=== PATIENT | female | born 1935 | race Caucasian/White ===

== ENCOUNTER 2016-12-04 07:59 | Observation (INO) | payer MEDICARE ==
--- NOTE | 2016-12-03 16:09 | HP ---
ADMIT DATE: HISTORY OF PRESENT ILLNESS: The patient is a pleasant 81-year-old woman who I have cared for in the past. A few years ago she underwent lumbar surgery by me for a lumbar radiculopathy and did very well from that. She reports that over the last month, she has developed increasing lower back pain along with pain that radiates into her left inguinal region and left anterior thigh, knee and anterior leg. She does not notice numbness in her legs. She feels as though her strength is normal. She says that when she is lying down in certain positions, she has virtually no pain, but if she stands and tries to walk, she develops very significant pain. There is no problem on the right side. The pain became unbearable and she was recently admitted to the hospital for evaluation and treatment. She was discharged and is now being brought back in for surgery. PAST MEDICAL HISTORY: Hypertension, hyperlipidemia, degenerative arthritis, hypothyroidism. PAST SURGICAL HISTORY: Cholecystectomy, total hip replacement, hysterectomy and lumbar surgery as mentioned above. SOCIAL HISTORY: , does not smoke or drink alcohol. CURRENT MEDICATIONS: Listed on the MRAD. ALLERGIES: ALBUMIN, MORPHINE. REVIEW OF SYSTEMS: A 12-point review of systems was performed and is noncontributory except that mentioned above. PHYSICAL EXAMINATION: GENERAL: Alert, pleasant, cooperative. HEENT: Atraumatic, normocephalic. NEUROLOGIC: Strength is 5/5 in the upper and lower extremities bilaterally. On sensory exam, she was intact to light touch in the upper and lower extremities bilaterally. Reflexes were 1+ throughout except for an absent left knee jerk. Straight leg raising was negative on the right. Straight leg raising on the left was associated with left inguinal and buttock pain at 30 degrees. On examination of the lumbar spine there was mild tenderness with palpation throughout the lumbar spine. Paraspinal muscle bulk and strength are normal. The overall alignment was normal to visual inspection. There was full range of motion of the upper and lower extremities bilaterally. IMAGING DATA: Reviewed a lumbar MRI scan as well as a lumbar myelogram. There is a disk herniation at L3-L4 on the left with nerve compression. ASSESSMENT: I believe her symptoms are related to the disk bulging on the left at L3-L4. I discussed lumbar microsurgery with her including the risk, the technique and the expected postoperative course. She would like to proceed. We have made the arrangements. NATHALY AMIN MD DR: Valerie JOB#: [id number] / [id number]
[2016-12-04] VITALS (9 sets, daily range): BP systolic 105–148; BP diastolic 55–75
[~2016-12-04] VITALS: Ht 165.1 cm; Wt 72.6 kg
[~2016-12-04 07:59] MED LIST: ASPI-482 PO; ATOR20TA PO; BACITRACIN 50,000 UNIT in IV NORMAL SALINE 1000ML BAG 1,000 ML IRR ONE; BUPIVACAINE-EPI 0.25%-1:200000 MPF 30 ML VIAL. ONE; CEFAZOLIN 2GM PREMIX 50 ML IV PRN; CYCL5TAB PO; DOCU-27 PO; ESTR1.5T2 PO; EZET10TA3 PO; GELATIN SPONGE SIZE 100. ONE; HYDR-2666 PO; HYDR-2762 PO; KETOROLAC 60 MG/2 ML SYRINGE FOR OR. ONE; LEVO75TA5 PO; OMEP40CA5 PO; SENN-22 PO; THROMBIN 20,000 UNIT SPRAY.SYRN KIT TP ONE; TRAM50TA PO; TRIA1TAB3 PO; [UNRECOGNIZED DRUG - CODE] PO
[2016-12-04] MEDS ORDERED: ATOR20TA PO (08:06)
[2016-12-04] MEDS ORDERED: FENTANYL PF 100 MCG/2 ML VIAL. ONE (08:30)
[2016-12-04] MEDS ORDERED: PROPOFOL 50 ML IV ONE (08:30)
[2016-12-04] MEDS ORDERED: PHENYLEPHRINE 10 MG/ML VIAL. ONE (08:30)
[2016-12-04] MEDS ORDERED: PROPOFOL 20 ML IV ONE (08:30)
[2016-12-04] MEDS ORDERED: DEXAMETHASONE SOD PHOS 20 MG/5 ML VIAL. ONE (08:30)
[2016-12-04] MEDS ORDERED: LIDOCAINE 2% 100 MG/5 ML DISP.SYRIN. ONE (08:30)
[2016-12-04] MEDS ORDERED: ROCURONIUM 50 MG/5 ML VIAL. ONE (08:30)
[2016-12-04] MEDS ORDERED: REMIFENTANIL 2 MG VIAL. IV ONE (08:30)
[2016-12-04] MEDS ORDERED: MINERAL OIL/PETROLATUM,WHITE OPHTH OINT 3.5GM TUBE. ONE (08:30)
[2016-12-04] MEDS: IV RINGERS,LACTATED 1000ML 1,000 ML IV SCH ×2 (08:55→22:20)
[2016-12-04] MEDS ORDERED: FENTANYL PF 100 MCG/2 ML VIAL. IV ONE ×2 (09:15→10:00)
[2016-12-04] MEDS ORDERED: EPHEDRINE PF IN SALINE 50 MG/5 ML DISP.SYRIN. IV ONE (10:55)
[2016-12-04] MEDS ORDERED: ONDANSETRON PF 4 MG/2 ML VIAL. ONE (12:55)
[2016-12-04] MEDS ORDERED: DESFLURANE > 120 MINUTES IH ONE (12:56)
[2016-12-04] MEDS ORDERED: GLYCOPYRROLATE 1 MG/5 ML VIAL. ONE (12:56)
[2016-12-04] MEDS ORDERED: NEOSTIGMINE METHYLSULFATE 5 MG/5 ML SYRINGE. ONE (12:56)
[2016-12-04] MEDS: FENTANYL PF 100 MCG/2 ML VIAL. IV PRN ×2 (14:04→14:09)
[2016-12-04] MEDS ORDERED: PROCHLORPERAZINE 10 MG/2 ML VIAL. IV PRN (14:15)
[2016-12-04] MEDS ORDERED: DIPHENHYDRAMINE 50 MG/ML VIAL IV PRN ×2 (14:15→14:30)
[2016-12-04] MEDS ORDERED: MEPERIDINE PF 25 MG/ML VIAL. IV PRN (14:15)
[2016-12-04] MEDS ORDERED: ONDANSETRON PF 4 MG/2 ML VIAL. IV PRN (14:30)
[2016-12-04] MEDS ORDERED: TRAMADOL 50 MG TABLET. PO PRN (14:30)
[2016-12-04] MEDS ORDERED: 0.9 % SODIUM CHLORIDE 10 ML DISP.SYRIN. IV PRN (14:30)
[2016-12-04] MEDS ORDERED: DIPHENHYDRAMINE HCL 25 MG CAPSULE PO PRN (14:30)
[2016-12-04] MEDS ORDERED: MAGNESIUM HYDROXIDE 2,400 MG/30 ML ORAL.SUSP. PO PRN (14:30)
[2016-12-04] MEDS ORDERED: OXYCODONE/APAP 5/325 TABLET. PO PRN (14:30)
[2016-12-04] MEDS ORDERED: ACETAMINOPHEN 325 MG TABLET. PO PRN (14:30)
[2016-12-04] MEDS ORDERED: FENTANYL PF 100 MCG/2 ML VIAL. IV PRN ×2 (14:30)
[2016-12-04] MEDS ORDERED: CALCIUM CARBONATE 500 MG TAB.CHEW PO PRN (14:30)
[2016-12-04] MEDS ORDERED: MAG HYDROX/AL HYDROX/SIMETH 30 ML ORAL.SUSP PO PRN (14:30)
[2016-12-04] MEDS: HYDROMORPHONE 2 MG/ML VIAL. IV PRN ×5 (14:37→16:06)
[2016-12-04] MEDS: DOCUSATE SODIUM 100 MG CAPSULE PO SCH ×2 (18:25→22:44)
[2016-12-04] MEDS: OXYCODONE/APAP 5/325 TABLET. PO PRN ×2 (18:25→22:44)
[2016-12-04] MEDS: POTASSIUM CL 20MEQ D5-0.45NACL 1,000 ML IV SCH (18:28)
[2016-12-04] MEDS ORDERED: ATORVASTATIN CALCIUM 20 MG TABLET PO SCH (21:00)
[2016-12-04] MEDS: SENNOSIDES/DOCUSATE 8.6/50MG TABLET. PO SCH (22:44)
[2016-12-05] MEDS: CYCLOBENZAPRINE 10 MG TABLET. PO PRN ×2 (01:25→09:32)
[2016-12-05 03:16] VITALS: BP 123/63
[2016-12-05] MEDS: POTASSIUM CL 20MEQ D5-0.45NACL 1,000 ML IV SCH (04:20)
[2016-12-05 07:00] VITALS: BP 112/54
[2016-12-05] MEDS ORDERED: LEVOTHYROXINE 75 MCG TABLET PO SCH (07:00)
[2016-12-05] MEDS ORDERED: PANTOPRAZOLE 40 MG TABLET. PO SCH (07:30)
[2016-12-05] MEDS ORDERED: ASPIRIN ENTERIC COATED 81 MG TABLET.DR. PO SCH (08:00)
[2016-12-05] MEDS ORDERED: PHENOBARB PO SCH (09:00)
[2016-12-05] MEDS ORDERED: ATROPINE PO SCH (09:00)
[2016-12-05] MEDS ORDERED: SCOP PO SCH (09:00)
[2016-12-05] MEDS ORDERED: HYOSCY PO SCH (09:00)
[2016-12-05] MEDS ORDERED: TRIAMTERENE/HCTZ 37.5/25MG TABLET. PO SCH (09:00)
[2016-12-05] MEDS: DOCUSATE SODIUM 100 MG CAPSULE PO SCH (09:30)
[2016-12-05] MEDS: SENNOSIDES/DOCUSATE 8.6/50MG TABLET. PO SCH (09:30)
[2016-12-05 11:00] VITALS: BP 118/54
[2016-12-05] MEDS: IV RINGERS,LACTATED 1000ML 1,000 ML IV SCH (11:12)
[2016-12-05] MEDS: OXYCODONE/APAP 5/325 TABLET. PO PRN (13:39)
--- NOTE | 2016-12-05 13:43 | PATHOLOGY ---
PATHOLOGY REPORT * * * * * * * * FINAL DIAGNOSIS: Segments of fibrocartilaginous, fibroadipose, and skeletal muscle tissue and minute segments of bone, lumbar disc and decompression: - Degenerative changes of fibrocartilaginous tissue. COMMENT: There is no evidence of an acute inflammatory process or malignancy. (MEGM:; d/t: 12/05/16) REPORT ELECTRONICALLY SIGNED BY: Jignesh Valdes M.D. DATE/TIME: 12/05/2016 13:43 * * * * * * * * GROSS PATHOLOGY: Received in formalin labeled "Janey Jaeger, lumbar disc and decompression" are multiple segments of wilcox, rubbery, and gritty tissue admixed with bone. The specimen measures 4.8 x 4.6 x 0.6 cm in aggregate dimensions. The tissue is submitted representatively in cassette A1, following decalcification. INITIAL CPT CODE(S): A; 05440, 03889 Professional services performed by [facility] [place] [place] [address] Technical services performed by [facility] at [address] [place] [address], [place] [address]. SPECIMEN(S) RECEIVED: A.Lumbar disc and decompression CLINICAL HISTORY: Lumbar herniated disc PATIENT: JANEY JAEGER /AGE: 2 1935 (Age: 81) PATIENT #: [id number] ALT CASE #: SPECIMEN COLLECTION DATE: 12/04/2016 SPECIMEN RECEIVED DATE: 12/04/2016 [facility] - [address] [place] [address] - PHONE: [phone] * * * END OF REPORT * * *
--- NOTE | 2016-12-05 14:00 | DISCH ---
DISCHARGE INSTRUCTIONS Condition on Discharge Condition on Discharge: Stable Activity After Discharge Activity Instructions for Disc: Activity as tolerated, Avoid exertion Bathing Instructions: Shower-keep dressing dry Lifting Instructions after Dis: No heavy lifting, No pulling or pushing, Do not lift >10 pounds Driving Instructions after Dis: Do not drive Diet after Discharge Additional Diet Restrictions: resume home diet Wound Incision Care Wound/Incision Care: Ice to area for comfort Other wound/incision instructi: daily dressing changes Contacting the DRPelon after DC Call your doctor for: Concerns you may have Follow-Up Follow up with: Dr. Amin in 2 weeks [phone] NATHALY AMIN MD Dec 05, 2016 14:00
[2016-12-05] MEDS ORDERED: OXYC1TAB7 PO (14:04)
--- NOTE | 2016-12-05 14:15 | PDOC ---
PROGRESS NOTES Subjective Subjective left leg pain improved left knee pain back/ incision sore Objective Objective Vital Signs Date Time Temp Pulse Resp B/P Pulse Ox O2 Delivery O2 Flow Rate FiO2 12/05/16 11:00 97.7 77 18 118/54 99 Room Air 97.7 12/04/16 13:40 8 Intake and Output 12/05/16 07:00 Intake Total 2790 ml Output Total 230 ml Balance 2560 ml Intake Oral 940 ml IV Total 1850 ml Output Urine Total 180 ml Estimated Blood Loss 50 ml # Voids 5 Physical Exam General: Alert, Oriented X3, Cooperative MUSCULOSKELETAL: Other (SIERRA) Neuro: Normal speech Skin: Other (dressing C,D,I, flat) Assessment Assessment Problems Medical Problems: (1) Herniation of lumbar intervertebral disc with radiculopathy Status: Acute Plan Plan of Care may transfer to SNF f/u in our office in 2 weeks Comment Review of Relevant I have reviewed the following items dawson (where applicable) has been applied. Labs Laboratory Tests Test 12/04/16 08:20 Nasal Screen MRSA (PCR) Negative (Negative) Medications Current Medications Bacitracin 29816 unit/Sodium Chloride 1,000 ml @ 1,000 mls/hr 1X PERIOP ONCE IRR Last administered on 12/04/16 06:00; Start 12/04/16 at 06:00; Stop 12/04/16 at 06:59; Status DC Cefazolin Sodium/ Dextrose (Ancef 2gm Premix) 50 ml @ 100 mls/hr 1X PREOP PRN IV PRIOR TO PROCEDURE Last administered on 12/04/16 11:09; Start 12/04/16 at 06: 00; Stop 12/04/16 at 18:00; Status DC Thrombin 20,000 unit STK-MED ONCE TP Last administered on 12/04/16 11:20; Start 12/04/16 at 07:26; Stop 12/04/16 at 07:27; Status DC Gelatin (Gelfoam Size 100) 1 each STK-MED ONCE .ROUTE Last administered on 12/04 11:20; Start 12/04/16 at 07:26; Stop 12/04/16 at 07:27; Status DC Ketorolac Tromethamine (Toradol For Or Only) 60 mg STK-MED ONCE .ROUTE Last administered on 12/04/16 11:20; Start 12/04/16 at 07:27; Stop 12/04/16 at 07:28; Status DC Bupivacaine HCl/ Epinephrine Bitart (Sensorcaine-Epi 0.25%-1:064031 Mpf) 30 ml STK-MED ONCE .ROUTE Last administered on 12/04/16 11:20; Start 12/04/16 at 07:27 ; Stop 12/04/16 at 07:28; Status DC Dexamethasone Sodium Phosphate (Decadron) 20 mg STK-MED ONCE .ROUTE ; Start 12/04 at 08:30; Stop 12/04/16 at 08:31; Status DC Rocuronium [place] 50 mg 50 mg STK-MED ONCE .ROUTE ; Start 12/04/16 at 08:30; Stop 12/04/16 at 08:31; Status DC Propofol 50 ml @ As Directed STK-MED ONCE IV ; Start 12/04/16 at 08:30; Stop 12/04 at 08:31; Status DC Propofol (Diprivan) 20 ml @ As Directed STK-MED ONCE IV ; Start 12/04/16 at 08:30 ; Stop 12/04/16 at 08:31; Status DC Lidocaine HCl 100 mg STK-MED ONCE .ROUTE ; Start 12/04/16 at 08:30; Stop 12/04/16 at 08:31; Status DC Multi-Ingred Cream/Lotion/Oil/ Oint (Artificial Tears Eye Oint) 7 luis STK-MED ONCE .ROUTE ; Start 12/04/16 at 08:30; Stop 12/04/16 at 08:31; Status DC Phenylephrine HCl (Arvin-Synephrine Inj) 10 mg STK-MED ONCE .ROUTE ; Start at 08:30; Stop 12/04/16 at 08:31; Status DC Remifentanil HCl (Ultiva) 2 mg STK-MED ONCE IV ; Start 12/04/16 at 08:30; Stop at 08:31; Status DC Fentanyl Citrate 100 mcg 100 mcg STK-MED ONCE .ROUTE ; Start 12/04/16 at 08:30; Stop 12/04/16 at 08:31; Status DC Lactated Ringer's (Iv Lactated Ringers) 1,000 ml @ 75 mls/hr [id number] IV Last administered on 12/04/16 08:55; Start 12/04/16 at 09:00 Fentanyl Citrate (Fentanyl 2ml Vial) 50 mcg 1X ONCE IV Last administered on 09:22; Start 12/04/16 at 09:15; Stop 12/04/16 at 09:17; Status DC Fentanyl Citrate (Fentanyl 2ml Vial) 50 mcg 1X ONCE IV Last administered on 09:57; Start 12/04/16 at 10:00; Stop 12/04/16 at 10:01; Status DC Ephedrine Sulfate 50 mg STK-MED ONCE IV ; Start 12/04/16 at 10:55; Stop 12/04/16 at 10:56; Status DC Ondansetron HCl (Zofran) 4 mg STK-MED ONCE .ROUTE ; Start 12/04/16 at 12:55; Stop 12/04/16 at 12:56; Status DC Glycopyrrolate (Robinul) 1 mg STK-MED ONCE .ROUTE ; Start 12/04/16 at 12:56; Stop 12/04/16 at 12:57; Status DC Neostigmine Methylsulfate 5 mg STK-MED ONCE .ROUTE ; Start 12/04/16 at 12:56; Stop 12/04/16 at 12:57; Status DC Desflurane (Suprane) 90 ml STK-MED ONCE IH ; Start 12/04/16 at 12:56; Stop at 12:57; Status DC Fentanyl Citrate (Fentanyl 2ml Vial) 50 mcg PRN Q5MIN PRN IV Acute Pain Last administered on 12/04/16 14:09; Start 12/04/16 at 14:15; Stop 12/05/16 at 14:14 Hydromorphone HCl (Dilaudid) 0.4 mg PRN Q10MIN PRN IV Moderate to severe pain Last administered on 12/04/16 16:06; Start 12/04/16 at 14:15; Stop 12/05/16 at 14: 14 Meperidine HCl (Demerol) 12.5 mg PRN Q5MIN PRN IV SHIVERING; Start 12/04/16 at 14:15; Stop 12/05/16 at 14:14 Prochlorperazine Edisylate (Compazine) 5 mg PRN Q6HRS PRN IV Nausea/Vomiting, 1st Choice; Start 12/04/16 at 14:15; Stop 12/05/16 at 14:14 Diphenhydramine HCl (Benadryl) 12.5 mg PRN Q2HR PRN IV ITCHING; Start 12/04/16 at 14:15; Stop 12/05/16 at 14:14 Aspirin (Ecotrin) 81 mg [id number] PO Last administered on 12/05/16 09:30; Start 12/05/16 at 08:00 Atorvastatin Calcium (Lipitor) 20 mg QHS PO Last administered on 12/04/16 22:44 ; Start 12/04/16 at 21:00 Docusate Sodium (Colace) 100 mg BID PO Last administered on 12/05/16 09:30; Start 12/04/16 at 15:00 Levothyroxine Sodium (Synthroid) 75 mcg DAILY07 PO Last administered on 06:36; Start 12/05/16 at 07:00 Senna/Docusate Sodium (Senna Plus) 1 tab BID PO Last administered on 12/05/16 09:30; Start 12/04/16 at 21:00 Tramadol HCl (Ultram) 50 mg DAILY PRN PO PAIN; Start 12/04/16 at 14:30 Triamterene/HCTZ (Maxzide 37.5/ 25mg) 1 tab DAILY PO Last administered on 09:29; Start 12/05/16 at 09:00 Cyclobenzaprine HCl (Flexeril) 5 mg PRN TID PRN PO PAIN Last administered on 09:32; Start 12/04/16 at 15:00 Pantoprazole Sodium (Protonix) 40 mg DAILYAC PO Last administered on 12/05/16 09:30; Start 12/05/16 at 07:30 Belladonna/ Phenobarbital ( Elixir) 5 ml DAILY PO Last administered on 12/05/16 09:29; Start 12/05/16 at 09:00 Fentanyl Citrate (Fentanyl 2ml Vial) 25 mcg PRN Q1HR PRN IV MODERATE PAIN; Start 12/04/16 at 14:30 Fentanyl Citrate (Fentanyl 2ml Vial) 50 mcg PRN Q1HR PRN IV SEVERE PAIN; Start 12/04/16 at 14:30 Acetaminophen (Tylenol) 650 mg PRN Q6HRS PRN PO MILD PAIN / TEMP Last administered on 12/05/16 06:32; Start 12/04/16 at 14:30 Al Hydroxide/Mg Hydroxide (Mylanta Plus Xs) 30 ml PRN Q3HRS PRN PO HEARTBURN / GAS; Start 12/04/16 at 14:30 Calcium Carbonate/ Glycine (Tums) 500 mg PRN Q3HRS PRN PO INDIGESTION; Start at 14:30 Diphenhydramine HCl (Benadryl) 25 mg PRN Q6HRS PRN PO ITCHING Last administered on 12/05/16 01:24; Start 12/04/16 at 14:30 Diphenhydramine HCl (Benadryl) 25 mg PRN Q6HRS PRN IV ITCHING; Start 12/04/16 at 14:30 Sodium Chloride 3 ml 3 ml QSHIFT PRN IV AFTER MEDS AND BLOOD DRAWS; Start at 14:30 Potassium Chloride/Dextrose/ Sod Cl (KCl 20 Meq In D5W-1/2 NS) 1,000 ml @ 75 mls/hr [id number] IV Last administered on 12/04/16 18:28; Start 12/04/16 at 15:00 Oxycodone/ Acetaminophen (Percocet 5/325) 1 tab PRN Q4HRS PRN PO MILD PAIN, 1ST CHOICE Last administered on 12/05/16 06:33; Start 12/04/16 at 14:30 Oxycodone/ Acetaminophen (Percocet 5/325) 2 tab PRN Q4HRS PRN PO MODERATE PAIN , SEVERE PAIN Last administered on 12/05/16 13:39; Start 12/04/16 at 14:30 Magnesium Hydroxide (Milk Of Magnesia) 2,400 mg PRN Q12HR PRN PO CONSTIPATION; Start 12/04/16 at 14:30 Ondansetron HCl (Zofran) 4 mg PRN Q6HRS PRN IV NAUESA, 1ST CHOICE; Start at 14:30 Active Scripts Active Senna-Time S Tablet (Sennosides/Docusate Sodium) 1 Each Tablet 1 Tab PO BID Colace (Docusate Sodium) 100 Mg Capsule 100 Mg PO BID Hydrocodone-Apap 5-325 (Hydrocodone Bit/Acetaminophen) 1 Each Tablet 2 Tab PO PRN Q6HRS PRN Cyclobenzaprine Hcl 5 Mg Tablet 1 Tab PO TID PRN PRN Reported Levothyroxine Sodium 75 Mcg Tablet 1 Tab PO DAILY Estropipate 1.5 Mg Tablet 1.25 Mg PO Belladonna-Phenobarbital Tab (Phenobarb/Hyoscy/Atropine/Scop) 16.2 Mg Tablet 16.2 Mg PO DAILY Lipitor (Atorvastatin Calcium) 20 Mg Tablet 1 Tab PO DAILY Hydrocodone-Apap 7.5-325 (Hydrocodone Bit/Acetaminophen) 1 Each Tablet 1 Tab PO BID Triamterene-Hctz 37.5-25 Mg Tb (Triamterene/Hydrochlorothiazid) 1 Each Tablet 1 Tab PO DAILY Aspir 81 (Aspirin) 81 Mg Tablet. 1 Tab PO DAILY Omeprazole 40 Mg Capsule. 1 Cap PO DAILY Tramadol Hcl 50 Mg Tablet 50 Mg PO DAILY PRN Vitals/I & O Vital Sign - Last 24 Hours 12/04/16 12/04/16 12/04/16 12/04/16 14:10 14:25 14:37 14:40 Temp 98.1 98.1 98.1 98.1 98.1 98.1 Pulse 88 88 88 Resp 20 18 20 20 B/P 142/39 138/40 135/62 Pulse Ox 93 93 97 95 O2 Delivery Room Air Room Air Room Air Room Air 12/04/16 12/04/16 12/04/16 12/04/16 14:49 14:55 15:03 15:10 Temp 98.1 98.1 98.1 98.1 Pulse 92 108 Resp 20 20 20 20 B/P 141/56 128/88 Pulse Ox 97 96 97 94 O2 Delivery Simple Mask Room Air Room Air Room Air 12/04/16 12/04/16 12/04/16 12/04/16 15:30 15:34 16:00 16:06 Temp 98 98.0 98.0 98.0 Pulse 97 98 Resp 20 20 20 20 B/P 137/81 134/64 Pulse Ox 95 95 95 95 O2 Delivery Room Air Room Air Room Air Room Air 12/04/16 12/04/16 12/04/1612/04/17 16:30 16:30 16:45 17:00 Temp 96.1 96.1 96.1 96.1 Pulse 88 88 86 95 Resp 18 B/P 125/67 125/67 144/70 131/71 Pulse Ox 94 94 93 95 O2 Delivery Room Air Room Air Room Air Room Air 12/04/16 12/04/16 12/04/16 12/04/16 17:15 17:30 18:00 18:25 Pulse 90 92 95 B/P 148/75 105/64 130/65 Pulse Ox 95 96 96 O2 Delivery Room Air Room Air Room Air Room Air 12/04/16 12/04/16 12/04/16 12/04/16 18:30 18:40 19:30 19:30 Pulse 91 88 B/P 126/71 141/73 Pulse Ox 95 O2 Delivery Room Air Room Air Room Air 12/04/16 12/05/16 12/05/16 12/05/16 23:09 03:16 07:00 11:00 Temp 97.5 97.4 97.5 97.7 97.5 97.4 97.5 97.7 Pulse 83 74 74 77 Resp 20 18 18 18 B/P 118/55 123/63 112/54 118/54 Pulse Ox 93 95 98 99 O2 Delivery Room Air Room Air Room Air Room Air Intake and Output 12/04/16 12/04/16 12/05/16 15:00 23:00 07:00 Intake Total 1190 ml 1600 ml Output Total 230 ml Balance 960 ml 1600 ml TAMIKA NUNEZ APRN Dec 05, 2016 14:15
[2016-12-05 15:00] VITALS: BP 97/41
--- NOTE | 2016-12-06 00:54 | CONS ---
DATE OF CONSULTATION: 12/05/2016 ATTENDING PHYSICIAN: Dr. Liu REASON FOR CONSULTATION: The patient was seen at the request of Dr. Liu for rehab evaluation. HISTORY OF PRESENT ILLNESS: This is a 81-year-old female with previous lumbar decompressive laminectomy with a recent onset of increased back pain and not much help with injection to her back area. She underwent lumbar decompression laminectomy, done on 12/04/2016. She admits some easing of her back pain. The patient admits numbness in her lower extremities from neuropathy. She did not pass gas yet. She is voiding satisfactorily. PAST MEDICAL HISTORY: The patient with known hypertension, hyperlipidemia, degenerative joint disease of her knees with some pain in left knee, hypothyroidism, status post cholecystectomy, total hip arthroplasty, hysterectomy and previous lumbar spine surgery. ALLERGIES: The patient is known allergic to albumin and morphine. The patient is being followed by ____ for neurogenic bladder. PHYSICAL EXAMINATION: The patient on physical examination today revealed an elderly female, she is alert, oriented to time, place, person and circumstance and follows commands appropriately, moves all 4 extremities voluntarily where she had 4+/5 grade muscle strength. Deep tendon reflexes are decreased in upper extremities and absent at both knees and ankles and she had equal perception of touch and pinprick sensation bilaterally. She had dressing to her lumbar spine area, tenderness to palpation over lumbar spine and adjoining paraspinal muscles and sacroiliac joint area. She had crepitus on range of motion of her knee joints without any obvious knee joint effusion. She is independent with bed mobility. She requires supervision with transfers. Once up, she is walking for about 75 feet with somewhat antalgic gait using a roller walker. She gets tired easily. ASSESSMENT: Mobility and self-care limitation in a patient with recent lumbar decompression laminectomy and fusion for treatment of degenerative disk disease and degenerative joint disease of both knees, peripheral neuropathy in a patient with known hypothyroidism. RECOMMENDATIONS: Agree with the plan for transfer to snf care unit for continued care. I have advised her to try left knee brace and lumbar corset but she is not interested at this time, to consider lubrication injection to her knee after her discharge from snf care unit. Dr. Liu, I appreciate asking me to participate in the care of this interesting patient. I will be glad to follow her with you as needed for her rehabilitation. NEIL BHARDWAJ MD DR: MYLENE/lorrie JOB#: [id number] / [id number]
--- NOTE | 2016-12-09 23:45 | OP ---
DATE OF SURGERY: PREOPERATIVE DIAGNOSIS: Recurrent herniated disk L3-L4, left with severe left lumbar radiculopathy. POSTOPERATIVE DIAGNOSIS: Recurrent herniated disk L3-L4, left with severe left lumbar radiculopathy. OPERATION PERFORMED: Hemilaminotomy and microdiskectomy L3-L4, left for recurrent disk herniation. The operation was done with EMG monitoring, fluoroscopy, microscopic dissection. OPERATIVE INDICATIONS: The patient is a very pleasant 81-year-old woman who developed intractable back and left leg pain and was found on imaging studies to have recurrent disk herniation at L3-L4. The problem was quite resistant to conservative measures. The pain was severe and I recommended lumbar microsurgery. I spoke with her about the surgery and the risks involved and she wished for me to go ahead. DESCRIPTION OF PROCEDURE: Following general endotracheal anesthesia, the patient was positioned prone on the Acromed spine board. Her lumbar region was prepped and draped in the standard fashion. JOSE CARLOS hose and AV impulse boots were applied for DVT prophylaxis. The microscope was draped, fluoroscopy was draped and brought into the field. Monitoring was established. Ancef 2 g was given less than 1 hour prior to initiation of the surgery. Using fluoroscopic guidance, an incision was made over the L3-L4 interspace. I dissected down to subcutaneous tissue and reflected the paraspinal muscles to the left and placed a [place] micro disk retractor. I then brought in the microscope and under magnification and using microscopic technique, I delineated the edges of her previous hemilaminotomy. I removed scar and exposed the lamina of L3 and L4. I brought in the high speed air drill and drilled and enlarged her hemilaminotomy superiorly, laterally and inferiorly and medially. I trimmed further with the 2 and 2.5 mm Kerrison's superiorly, laterally and inferiorly and worked along the medial aspect of the pedicle and visualized the L4 root. I then worked superiorly to the level of the disk where there was dense scarring and I worked and removed scar and I exposed the lateral edge of the dura. I gently retracted the root and dura medially. There were a number of subligamentous disk fragments which I began to tease back and remove and as I worked, the region became very well decompressed and the root was quite mobile. I then entered into the disk space and performed diskectomy with pituitary rongeurs. As I worked, the region became very well decompressed. I irrigated copiously. I did use small amounts of bone wax when necessary. I used a bipolar cautery for any bleeding and I was able to fully decompress the entire region. I then following this irrigated copiously, removed the retractor, obtained hemostasis in the muscle and then I closed the wound in layers with absorbable suture and the skin was closed with a 4-0 subcuticular stitch. The operation went very well and the patient was taken to recovery room in excellent condition. I was quite pleased with the surgery. NATHALY AMIN MD DR: JANY/lorrie JOB#: [id number] / [id number]
== END 2016-12-05 17:07 ==
LOC: SURG 07:59 → 4 NORTH 14:52
PROVIDERS: ADMIT Neurological Surgery; ATTEND Neurological Surgery
DX: M51.16 Intervertebral disc disorders with radiculopathy, lumbar region (principal); M17.0 Bilateral primary osteoarthritis of knee; I10 Essential (primary) hypertension; E78.5 Hyperlipidemia, unspecified; E03.9 Hypothyroidism, unspecified; Z90.49 Acquired absence of other specified parts of digestive tract; Z96.649 Presence of unspecified artificial hip joint
CPT/HCPCS: 63030; 76000; 87641; 88304; 88311; 97110; 97116; 97162; G0378; G0379; G8978; G8979; G8980; J0690; J1100; J1170; J1885; J2405; J2704; J2710; J3010; J3490; J7030; Q0163; 36415

== ENCOUNTER → 2017-03-23 | Outpatient (CLI) | payer MEDICARE, BC ==
[~2017-03-23] MED LIST changes: -BACITRACIN 50,000 UNIT in IV NORMAL SALINE 1000ML BAG 1,000 ML IRR ONE; -BUPIVACAINE-EPI 0.25%-1:200000 MPF 30 ML VIAL. ONE; -CEFAZOLIN 2GM PREMIX 50 ML IV PRN; +GADOBUTROL 7.5 MMOL/7.5 ML VIAL IV ONE; -GELATIN SPONGE SIZE 100. ONE; -KETOROLAC 60 MG/2 ML SYRINGE FOR OR. ONE; +OXYC1TAB7 PO; -THROMBIN 20,000 UNIT SPRAY.SYRN KIT TP ONE
--- NOTE | 2017-03-23 13:39 | KCIC ---
MR LUMBAR SPINE HISTORY:Reason For StudyReason: STENOSIS, LT LUMBAR RADICULOPATHY / Spl. Instructions: Prev exams sent to PACS. 7cc Gadavist / History: Surgery 2013, L3/4, L4/5 laminecctomy. Technique: Sagittal T2, sagittal STIR, and sagittal T1-weighted images were obtained. Additional axial T1 and T2 weighted imaging was also performed. Post contrast T1 weighted images were performed after intravenous administration of gadolinium based contrast. FINDINGS: There is grade 1 degenerative anterolisthesis of L4 on L5. Alignment is otherwise within normal limits. There is no compression fracture or deformity. The conus terminates normally at the level of L1-L2. Visualized intra-abdominal contents are within normal limits. There is no abnormal intrathecal enhancement. At L5-S1 there is moderate disc height loss. There is a small disc protrusion but no spinal stenosis At L4-L5 there is bilateral facet arthropathy worse on the left with grade 1 degenerative anterolisthesis. There is also moderate disc height loss. There is a broad-based disc protrusion which causes moderate bilateral lateral recess stenosis. Correlate for L5 radiculopathy At L3-L4 there is moderate disc height loss with a broad-based disc protrusion there are postsurgical changes of a left hemilaminectomy. There is some enhancing soft tissue within the left foramina which could represent foraminal fibrosis. This causes moderate narrowing of the foraminal canal. Correlate for left L3 radiculopathy. At L2-L3 there is no spinal stenosis. At L1-L2 there is a small disc bulge but no spinal stenosis. Impression: - At L3-L4 there are postsurgical changes of a left hemilaminectomy. Some enhancing tissue is noted in the left foraminal canal causing moderate narrowing. This could represent postsurgical fibrotic tissue. Correlate for left L3 radiculopathy. - At L4-L5 there is grade 1 degenerative anterolisthesis with bilateral lateral recess stenosis. This has potential for L5 radiculopathy. - Other less severe degenerative changes per level as above. Electronically signed by: Yaw Castelan (Mar 23, 2017 13:37:41)
== END | disposition home or self-care (01) ==
LOC: KCIC MRI 12:07
PROVIDERS: ATTEND Neurological Surgery
DX: M48.06 Spinal stenosis, lumbar region (principal)
CPT/HCPCS: 72158; A9585

== ENCOUNTER → 2017-05-05 | Outpatient (CLI) | payer MEDICARE, BC ==
[~2017-05-05] MED LIST changes: -GADOBUTROL 7.5 MMOL/7.5 ML VIAL IV ONE; +HYDR-2672 PO; +LEVO112T4 PO; +OMEP20CA9 PO; +POTASSIUM CHLO10 MEQ PO
[2017-05-05 13:59] LABS: BASO # 0.1 x10^3/uL (0.0-0.2); BASO % 1 % (0-3); EOS % 1 % (0-3); HEMATOCRIT 40.2 % (36.0-47.0); HEMOGLOBIN 13.1 g/dL (12.0-15.5); LYMPH % 22 % (24-48); MEAN CORPUSCULAR HEMOGLOBIN 29 pg (25-35); MEAN CORPUSCULAR HGB CONC 33 g/dL (31-37); MEAN CORPUSCULAR VOLUME 89 fL (79-100); MONO % 5 % (0-9); NEUT % 71 % (31-73); PLATELET COUNT 291 x10^3/uL (140-400); RED BLOOD COUNT 4.54 x10^6/uL (3.50-5.40); RED CELL DISTRIBUTION WIDTH 14.6 % (11.5-14.5); WHITE BLOOD COUNT 9.2 x10^3/uL (4.0-11.0)
[2017-05-05 14:18] LABS: PROTHROMBIN TIME PATIENT 12.7 SEC (11.7-14.0)
[2017-05-05 14:23] LABS: ALBUMIN 3.6 g/dL (3.4-5.0); CALCIUM 9.3 mg/dL (8.5-10.1); CREATININE 0.9 mg/dL (0.6-1.0); GFR 60.2; POTASSIUM 3.6 mmol/L (3.5-5.1)
--- NOTE | 2017-05-05 14:40 | EKG ---
[facility] [address] [place] [address] Test Date: 2017-05-05 Test Time: 14:37:47 Pat Name: JANEY WAITE Department: Room: Gender: F Director Community Organization: [facility] : 1935 Requested By: MARC MARROQUIN Order Number: [id number] Reading MD: Jackie Blank Measurements Intervals [place] Rate: 77 P: 45 RI: 168 QRS: 28 QRSD: 74 T: 31 QT: 402 QTc: 457 Interpretive Statements SINUS RHYTHM NORMAL ECG RI6.01 Compared to ECG 07/02/2016 15:12:59 T-wave abnormality no longer present Possible ischemia no longer present Electronically Signed On 05-07-2017 12:37:38 CDT by Jackie Blank
[2017-05-05 15:20] LABS: BILIRUBIN,URINE NEGATIVE (NEG); GLUCOSE,URINE NEGATIVE (NEG); NITRITE,URINE NEGATIVE (NEG); PH,URINE 5.5; PROTEIN,URINE NEGATIVE (NEG-TRACE); UROBILINOGEN,URINE 0.2 mg/dL (0.2 mg/dL)
[2017-05-05 15:27] LABS: RBC,URINE 0 /HPF (0-2)
[2017-05-05 15:28] LABS: BACTERIA,URINE FEW /HPF (0-FEW); SQUAMOUS EPITHELIAL CELL,UR MOD /LPF
== END | disposition home or self-care (01) ==
LOC: SURGPAT 13:13
PROVIDERS: ATTEND Orthopaedic Surgery
DX: Z96.642 Presence of left artificial hip joint (principal)
CPT/HCPCS: 36415; 80048; 81001; 82040; 83036; 85027; 85610; 85651; 85730; 87086; 87641; 93005

== ENCOUNTER 2017-05-12 08:48 | Inpatient (IN) | payer MEDICARE, BC ==
[~2017-05-12] VITALS: Ht 165.1 cm; Wt 72.6 kg
[2017-05-12] VITALS (8 sets, daily range): BP systolic 109–149; BP diastolic 54–73
[~2017-05-12 08:48] MED LIST changes: +ACETAMINOPHEN 500 MG TABLET PO ONE; +CELECOXIB 200 MG CAPSULE. ONE; +DOCU-109 PO; -DOCU-27 PO; +EZET10TA18 PO; -EZET10TA3 PO; -HYDR-2666 PO; -HYDR-2672 PO; +HYDR-2758 PO; +HYDR-2766 PO; +IV RINGERS,LACTATED 1000ML 1,000 ML IV SCH; +LIDOCAINE 1% 1 ML SYRINGE. ID PRN; +ONDANSETRON PF 4 MG/2 ML VIAL. IV PRN; +TRANEXAMIC ACID 1,000 MG in IV NORMAL SALINE 50ML 50 ML INJ ONE; +fentaNYL PF VIAL 100 MCG/2 ML VIAL IV PRN
[2017-05-12] MEDS ORDERED: LIDOCAINE 2% PF Vial for OR 5 ML VIAL. ONE (08:51)
[2017-05-12] MEDS ORDERED: FAMOTIDINE 20 MG/2 ML VIAL ONE (08:51)
[2017-05-12] MEDS ORDERED: DEXAMETHASONE SOD PHOS 20 MG/5 ML VIAL. ONE (08:51)
[2017-05-12] MEDS ORDERED: ONDANSETRON PF 4 MG/2 ML VIAL. ONE (08:51)
[2017-05-12] MEDS ORDERED: fentaNYL PF VIAL 100 MCG/2 ML VIAL ONE ×2 (08:51→11:53)
[2017-05-12] MEDS ORDERED: PROPOFOL 20 ML IV ONE (08:51)
[2017-05-12] MEDS ORDERED: ROCURONIUM 50 MG/5 ML VIAL. ONE (08:52)
[2017-05-12] MEDS: IV RINGERS,LACTATED 1000ML 1,000 ML IV SCH ×2 (09:30→10:03)
[2017-05-12] MEDS ORDERED: CELE200C PO (09:53)
[2017-05-12] MEDS ORDERED: WARF-78 PO (09:55)
[2017-05-12] MEDS ORDERED: ACETAMINOPHEN 500 MG TABLET PO ONE (10:00)
[2017-05-12 11:44] LABS: PROTHROMBIN TIME PATIENT 12.7 SEC (11.7-14.0)
[2017-05-12] MEDS ORDERED: GLYCOPYRROLATE 1 MG/5 ML VIAL. ONE (13:11)
[2017-05-12] MEDS ORDERED: DESFLURANE > 120 MINUTES IH ONE (13:11)
[2017-05-12] MEDS ORDERED: NEOSTIGMINE METHYLSULFATE 5 MG/5 ML SYRINGE. ONE (13:11)
[2017-05-12] MEDS ORDERED: ePHEDrine PF IN SALINE 50 MG/5 ML DISP.SYRIN IV ONE (13:20)
--- NOTE | 2017-05-12 14:06 | PDOC ---
BRIEF OPERATIVE NOTE Date: May 12, 2017 Pre-Op Diagnosis left hip pain, acetabular component wear, possible lysis Post-Op Diagnosis same with solidly fixed stem and acetabular component Procedure Performed revision acetabular poly, femoral head and removal of actetabular screw Surgeon Supriya Fischer Anesthesia Type: General Blood Loss 150cc Specimens Obtained above Findings above Complications none MARC MARROQUIN MD May 12, 2017 14:06
[2017-05-12] MEDS: fentaNYL PF VIAL 100 MCG/2 ML VIAL IV PRN ×4 (14:08→14:47)
[2017-05-12] MEDS ORDERED: HYDROcodone/APAP 7.5/325MG 1 TAB TABLET PO PRN (14:15)
[2017-05-12] MEDS ORDERED: PROCHLORPERAZINE 10 MG/2 ML VIAL. IV PRN (14:15)
[2017-05-12] MEDS ORDERED: fentaNYL PF VIAL 100 MCG/2 ML VIAL IV PRN ×2 (14:15)
[2017-05-12] MEDS ORDERED: 0.9 % SODIUM CHLORIDE 10 ML DISP.SYRIN. IV PRN (14:15)
[2017-05-12] MEDS ORDERED: ZOLPIDEM 5 MG TABLET. PO PRN (14:15)
[2017-05-12] MEDS ORDERED: DEXTROSE 50% 25 GM / 50ML DISP.SYRIN. IV PRN (14:15)
[2017-05-12] MEDS ORDERED: oxyCODONE/APAP 7.5/325 1 TAB TABLET PO PRN (14:15)
[2017-05-12] MEDS ORDERED: diphenhydrAMINE 50 MG/ML VIAL IV PRN (14:15)
[2017-05-12] MEDS ORDERED: oxyCODONE/APAP 5/325 1 TAB TABLET PO PRN (14:15)
[2017-05-12] MEDS ORDERED: ACETAMINOPHEN 325 MG TABLET. PO PRN (14:15)
[2017-05-12] MEDS ORDERED: traMADol 50 MG TABLET PO PRN ×2 (14:15)
[2017-05-12] MEDS ORDERED: HYDROcodone/APAP 10/325 1 TAB TABLET PO PRN (14:15)
[2017-05-12] MEDS ORDERED: CALCIUM CARBONATE 500 MG TAB.CHEW PO PRN (14:15)
--- NOTE | 2017-05-12 14:57 | RAD ---
AP pelvis 05/12/2017 Clinical history: Post hip surgery. 3 AP portable digital radiographs of the pelvis to include both hips were obtained. There is diffuse osteopenia the visualized bony structures. Patient is status post bilateral FRANKY. Cerclage wires surround the proximal femurs bilaterally. No acute fracture or dislocation is seen. Impression: Status post bilateral FRANKY. No acute osseous abnormality is seen.
[2017-05-12] MEDS: PROCHLORPERAZINE 10 MG/2 ML VIAL. IV PRN ×2 (14:59→15:16)
[2017-05-12] MEDS ORDERED: MEPERIDINE PF 25 MG/ML VIAL. IV PRN (15:00)
--- NOTE | 2017-05-12 15:45 | ACF ---
Admission Forms Criteria MUSCULOSKELETAL DISEASE GRG Clinical Indications for Admission to Inpatient Care (Place 'X' for any and all applicable criteria): Hospital admission is needed for appropriate care of the patient because of 1 or more of the following: [ ]I. Fracture, dislocation, or other musculoskeletal injury requiring inpatient care(medical) as indicated by 1 or more of the following(4)(5)(6)(7) [ ]a) Vertebral fracture requiring observation for instability or neurologic compromise (8) [ ]b) Compartment syndrome (proven or cannot be ruled out during observation level of care) (9) [ ]c) Limb-threatening injury [ ]d) Major injury requiring inpatient stabilization such as traction initiation or external fixation before internal fixation or closure of complex or open fracture [ ]e) Major injury requiring inpatient treatment after emergency or observation level care (as appropriate) [ ]f) Severe pain requiring acute inpatient management [ ]g) Injury with suspicion of abuse or neglect (eg., child, dependent elderly) [ ]II. Newly diagnosed or suspected bone, joint, or orthopedic device infection (e.g., osteomyelitis, septic arthritis) needing 1 or more of the following(1)(2)(3) [ ]a) IV antibiotics that cannot be initiated in other than inpatient setting (e.g., patient too unstable or home infusion not available) [ ]b) Device removal or replacement [ ]c) Bone or soft tissue debridement [ ]d) Joint drainage (drain placement or repetitive aspirations) [ ]III. Severe rheumatologic disease (e.g., systemic lupus erythematosus, rheumatoid arthritis) with complications or comorbidities (Also use Optimal Recovery Care Criteria or General Recovery Criteria as appropriate on the basis of predominant condition), including 1 or more of the following( 10)(11)(12)(13) [ ]a) Severe infection (e.g., [employer] infection, sepsis) (14) [ ]b) Respiratory complications, including 1 or more of the following : [ ]i) Pleural effusion with respiratory compromise [ ]ii) Pulmonary hypertension with congestive failure [ ]iii) Respiratory failure [ ]iv) Pulmonary hemorrhage (15) [ ]c) Hematologic disease, including 1 or more of the following: [ ]i) Coagulopathy with bleeding [ ]ii) Thrombosis with hypercoagulable state [ ]iii) Thrombotic thrombocytopenic purpura [ ]d) Cerebritis with seizures, psychosis, or other severe abnormalities [ ]e) Vertebral destruction with monitoring needed for cervical myelopathy& possible respiratory compromise [ ]f) Exacerbation that requires inpatient treatment (e.g., intravenous immunosuppression) (16) [ ]g) Acute renal failure [ ]h) Cerebritis with seizures, psychosis, Altered mental status, or other neurologic abnormalities [ ]i) Pericardial effusion with tamponade [ ]j) Vertebral destruction, with monitoring needed for cervical myelopathy and possible respiratory compromise [ ]IV. Severe vasculitis with complications or comorbidities (Also use Optimal Recovery Care Criteria General Recovery Criteria as appropriate on the basis of predominant condition), including 1 or more of the following(11)(12)(17)(18)(19)(20) [ ]a) Exacerbation that requires inpatient treatment (e.g., intravenous immunosuppression) (19)(21) [ ]b) Pulmonary hemorrhage (15) [ ]c) [employer] vasculitis with seizures, psychosis, Altered mental status that is severe or persistent, or other severe abnormalities (22) [ ]d) Cerebral infarction [ ]e) Gastrointestinal ischemia [ ]f) Gangrene or threatened amputation [ ]g) Renal failure (16) [ ]h) Other significant complications of vasculitis ( eg., tissue or organ ischemia, organ dysfunction ) [ ]V. Severe myopathy as indicated by 1 or more of the following (28)(29) [ ]a) New onset of airway compromise or inability to swallow [ ]b) Respiratory deterioration with observation needed for impending respiratory failure [ ]c) Exacerbation that requires inpatient treatment (e.g., intravenous immunosuppression) [ ]. Severe crystal gout (arthropathy) indicated by 1 or more of the following (23)(24) [ ]a) Severe pain requiring acute inpatient management [ ]b) Exacerbation that requires inpatient treatment (e.g., intravenous treatment) [ ]VII.Rhabdomyolysis and 1 or more of the following (25)(26)(27) [ ]a) Acute renal failure [ ]b) Need for intravenous hydration after emergency or observation level care (as appropriate) [ ]c) Inability to maintain oral hydration [ ]d) Change in mental status [ ]e) Electrolyte abnormality that remains after emergency or observation level care (as appropriate) [ ]VIII Post amputation complication, as indicated by ANY ONE of the following [ ]a) Infection [ ]b) Dehiscence [ ]c) Myodesis failure [X]IX. Severe pain requiring acute inpatient management due to musculoskeletal condition [ ]X. Musculoskeletal Disease and ALL of the following: [ ]a) Symptom or finding for which emergency and observation care have failed or are not considered appropriate (Use General Criteria: Observation Care as appropriate) [ ]b) Presence of ANY ONE of the following [ ]i) A General Admission Criteria [ ]ii) A Pediatric General Admission Criteria The original [facility] content created by [facility] has been revised. The portions of the content which have been revised are identified through the use of italic text or in bold, and [facility] has neither reviewed nor approved the modified material. All other unmodified content is copyright [facility]. Please see references footnoted in the original [facility] edition 2016 Admission Criteria Met?: Yes SCOTTY CEBALLOS May 12, 2017 15:45
[2017-05-12] MEDS ORDERED: WARFARIN 7.5 MG TABLET. PO ONE (17:00)
[2017-05-12] MEDS: PANTOPRAZOLE 40 MG TABLET.DR. PO SCH (17:45)
[2017-05-12] MEDS: FERROUS SULFATE 325 MG TABLET. PO SCH (17:45)
[2017-05-12] MEDS: DOCUSATE SODIUM 100 MG CAPSULE. PO SCH (21:29)
[2017-05-12] MEDS: CELECOXIB 200 MG CAPSULE. PO SCH (21:29)
--- NOTE | 2017-05-12 21:46 | HP ---
ADMIT DATE: 05/12/2017 CHIEF COMPLAINT: Left hip pain. HISTORY OF PRESENT ILLNESS: The patient is an 82-year-old female who had a left total hip arthroplasty about 10 years ago, required some revision work due to a femur fracture, but then recovered well from the left hip and subsequently underwent a right hip arthroplasty, which is still doing very, very well, but has been having increased left hip pain as well as low back pain. She underwent a back surgery and her spine surgeon was concerned that the hip is causing her primary pain at this time. PAST MEDICAL HISTORY: Significant for spinal stenosis, hypertension, hypothyroidism, hyperlipidemia as well as back and neck pain with degenerative changes. PAST SURGICAL HISTORY: Significant for the back surgery and 2 surgeries on the left hip previously and total hip arthroplasty on the right. FAMILY HISTORY: Denies any significant family history. MEDICATIONS: List is reviewed. ALLERGIES: INCLUDE DILAUDID, MACRODANTIN, MORPHINE AND HUMAN ALBUMIN. REVIEW OF SYSTEMS: Denies any chest pain, shortness of breath, fever, chills, recent constitutional symptoms. She has been asymptomatic in terms of any burning on urination. Did have apparently a concerning urinalysis, but negative cultures that was thought to be a contaminated specimen initially. PHYSICAL EXAMINATION: VITAL SIGNS: Per admission sheet. HEENT: Atraumatic, normocephalic. HEART: Regular rate and rhythm. LUNGS: Clear to auscultation bilaterally. ABDOMEN: Benign. EXTREMITIES: Examination of the left hip reveals overall good stability. There is a little bit of a sliding motion due to wear, no absolute grinding. She does have some pain at extremes of range of motion. Also some low back lumbar spasm without radiculopathy. There is a well healed incision over the contralateral right hip and has normal alignment and stability of bilateral knees and ankles with overall intact motor function, distal pulses, sensation, reflexes, skin in both lower extremities throughout. X-rays show significant superior wear in the acetabular polyethylene. There is no evidence of metal debris at this point, although the acetabular component does not appear loose and appears to be somewhat well fixed. There was some concern for lysis superiorly and due to the significant wear, we talked through treatment alternatives. Treatment options, I know she is exhausted a lot of the treatment alternatives from the spinal surgery and certainly if there is some acetabular lysis causing any loosening could be a significant source of wear. She does appear to have significant wear perhaps almost through the polyethylene insert at this time. I talked with her that it may last quite a bit longer, but if it does wear through and start grinding, that would be certainly a reason for revision. The other would be if she does have significant lysis causing her pain, a revision possible bone grafting or even replacement of the acetabular shell could be necessary. Otherwise, it might be planned to just remove and exchange the polyethylene and femoral head as the stem appears well fixed as well. All of her questions were answered regarding this procedure and the risks, benefits, postoperative course including the possibility that it may not resolve her pain. We also talked about the possibly of an instability, medical or other anesthetic complications, infection, blood clots among others. All her questions were answered. Consent was obtained and she agrees to proceed with operative evaluation and treatment, which will include joint center admission following the procedure today. MARC MARROQUIN MD DR: NEERAJ/lorrie JOB#: [id number] / [id number] [place]
[2017-05-12] MEDS: IV DEXTROSE 5 %-0.45 % NACL 1,000 ML IV SCH (22:25)
[2017-05-13] MEDS: IV DEXTROSE 5 %-0.45 % NACL 1,000 ML IV SCH ×3 (00:06→16:57)
[2017-05-13 02:55] VITALS: BP 142/72
[2017-05-13] MEDS ORDERED: MAGNESIUM HYDROXIDE 2,400 MG/30 ML ORAL.SUSP. PO PRN (06:00)
[2017-05-13 06:19] LABS: INR 1.1 (0.8-1.1); PROTHROMBIN TIME PATIENT 13.9 SEC (11.7-14.0)
[2017-05-13 06:21] VITALS: BP 147/78
[2017-05-13] MEDS: PANTOPRAZOLE 40 MG TABLET.DR. PO SCH (07:30)
[2017-05-13] MEDS: HYDROcodone/APAP 10/325 1 TAB TABLET PO PRN ×3 (07:33→19:16)
[2017-05-13] MEDS: POTASSIUM CHLORIDE 10 MEQ TABLET.ER. PO SCH (08:39)
[2017-05-13] MEDS: FERROUS SULFATE 325 MG TABLET. PO SCH ×2 (08:39→16:56)
[2017-05-13] MEDS: SENNOSIDES/DOCUSATE 8.6/50MG TABLET. PO SCH (08:39)
[2017-05-13] MEDS: DOCUSATE SODIUM 100 MG CAPSULE. PO SCH ×2 (08:39→21:13)
[2017-05-13] MEDS: CELECOXIB 200 MG CAPSULE. PO SCH ×2 (08:39→21:13)
[2017-05-13] MEDS: MULTIVITAMIN with MINERAL TABLET. PO SCH (08:39)
[2017-05-13] MEDS: TRIAMTERENE/HCTZ 37.5/25MG TABLET. PO SCH (08:39)
[2017-05-13] MEDS: LEVOTHYROXINE 112 MCG TABLET PO SCH (08:43)
[2017-05-13] MEDS ORDERED: ATORVASTATIN CALCIUM 20 MG TABLET PO SCH (09:00)
[2017-05-13] MEDS: ESTROPIPATE 1.25 MG PO SCH (09:00)
[2017-05-13] MEDS ORDERED: ASPIRIN ENTERIC COATED 81 MG TABLET.DR. PO SCH (09:00)
[2017-05-13] MEDS: IV RINGERS,LACTATED 1000ML 1,000 ML IV SCH (11:12)
--- NOTE | 2017-05-13 15:36 | OP ---
DATE OF SURGERY: 05/12/2017 PREOPERATIVE DIAGNOSIS: Left hip pain, acetabular component wear, feelings of instability and some acetabular lysis secondary to polyethylene wear. POSTOPERATIVE DIAGNOSIS: Solidly significant acetabular polyethylene wear, solidly placed acetabular component and femoral stem. PROCEDURE: Revision acetabular polyethylene and femoral head. SURGEON: Talib Marroquin M.D. ANESTHESIA: General endotracheal. PATTERN CLERK: Emma Fischer, nurse first assist. ESTIMATED BLOOD LOSS: 250 mL. COMPLICATIONS: None. OPERATIVE INDICATIONS: The patient is an elderly female, 82 years old who had a total hip arthroplasty done [address] Jordan, had to be redone in the immediate postoperative period secondary to femur fracture and underwent cable stabilization. She had done well up until recently where she is having more left hip pain. She had actually undergone spine surgery and has continued left hip pain that the spine surgeon was suspicious due to the hip joint itself. I evaluated her. There was significant superior acetabular polyethylene wear, slight movement due to the oval nature of the acetabular polyethylene. Following the wear, some acetabular lysis visible superiorly which was potentially the source of her pain. I had gone over with her that whatever is significant wear, it did not seem to be ____ there is a possibility in the future given the current wear rate. The dumont itself would not be a cause for her pain, but potentially acetabular lysis or loosening could be. Talked about the possibility of continued pain, medical or other anesthetic complications, nerve or blood vessel damage, instability, among other issues with possible operative treatment. All her questions were answered. Consent was obtained and she agrees to proceed with operative evaluation and treatment. DESCRIPTION OF PROCEDURE: The patient was identified, procedure verified, patient placed in the supine position on the operating table. After adequate amounts of general endotracheal anesthesia were administered, she was placed in the lateral decubitus position with the Stulberg hip positioner, left side up and was prepped and draped in standard sterile fashion. After timeout was performed, the patient and procedure identified and verified, an incision was made along the previous incision line. Dissection carried out down to the iliotibial band, which was split in line with its fibers as was the gluteus. Hip capsule was split in a T fashion. The synovial tissue was excised with electrocautery to provide good visualization to the acetabulum and to the femoral stem. Hip was dislocated. Femoral head was removed. It was 28 mm -3 to go with a [employer] stem. She did have significant superior acetabular wear that was broken through the liner itself and there did not seem to be significant acetabular loosening based on initial evaluation. Acetabular exposure was very difficult because the hip was very tight and my normal placing the stem anteriorly to aid with the exposure and retraction was not going to be effective. In fact, even with getting the acetabular polyethylene loose and the cup, it was impossible to remove it with the current exposure and therefore an anterior capsulotomy was made through the same incision and the polyethylene was able to be removed. The superiorly directed single acetabular screw was then removed and the cup was thoroughly evaluated and did not appear to need any bone graft based on probing in the acetabulum holes. Therefore, after thorough irrigation carried out with normal saline solution, bleeding points were controlled by electrocautery and excision of additional synovium for visualization, a size 32 x 50 mm inside diameter reflection acetabular polyethylene was impacted into place, 32 mm -3 cobalt chromium head was tapped in place to engage the Barrera taper and reduced in place. Excellent stability was noted throughout the range of motion. Thorough irrigation carried out with normal saline solution. I elected not to place a drain, but pain catheter mixture was injected throughout the capsular area and surrounding tissues. Closure of the fascia was accomplished with Ethibond and Vicryl sutures layered closure of the subcutaneous layer with Vicryl suture subcuticular closure was accomplished. Sterile dressings were applied. The patient was returned to recovery room in stable condition having tolerated the procedure well. TALIB MARROQUIN MD DR: NEERAJ/lorrie JOB#: [id number] / [id number]
[2017-05-13] MEDS ORDERED: WARFARIN 5 MG TABLET. PO ONE (16:00)
[2017-05-13] MEDS ORDERED: BISACODYL 10 MG SUPP.RECT. PR PRN (16:00)
--- NOTE | 2017-05-13 17:23 | PDOC ---
PROGRESS NOTES Subjective Subjective Problems overnight: Getting up and around reasonably well with physical therapy pain is well-controlled Objective Vital Signs Vital Signs Date Time Temp Pulse Resp B/P (MAP) Pulse Ox O2 Delivery O2 Flow Rate FiO2 05/13/17 12:36 Room Air 05/13/17 07:33 18 97 05/13/17 06:21 97.7 83 147/78 (101) 97.7 05/12/17 14:08 8.0 Physical Exam Incision is clean dry intact leg lengths equal distal neurovascular status intact Labs Laboratory Tests Test 05/12/17 09:30 05/13/17 05:45 Prothrombin Time 12.7 SEC (11.7-14.0) 13.9 SEC (11.7-14.0) Prothromb Time International Ratio 1.0 (0.8-1.1) 1.1 (0.8-1.1) Activated Partial Thromboplast Time 30 SEC (24-38) Laboratory Tests Test 05/13/17 05:45 Prothrombin Time 13.9 SEC (11.7-14.0) Prothromb Time International Ratio 1.1 (0.8-1.1) Assessment Assessment POD# [1], S/P [revision left total hip] Problems: Plan Plan of Care Weightbearing as tolerated standard total hip precautions Placement plans on discharge when stable MARC MARROQUIN MD May 13, 2017 17:23
[2017-05-13 18:26] VITALS: BP 138/74
[2017-05-13] MEDS: ATORVASTATIN CALCIUM 20 MG TABLET PO SCH (21:13)
[2017-05-13] MEDS: ASPIRIN ENTERIC COATED 81 MG TABLET.DR. PO SCH (21:13)
[2017-05-14] MEDS: HYDROcodone/APAP 10/325 1 TAB TABLET PO PRN ×3 (01:18→20:54)
[2017-05-14 04:23] LABS: HEMATOCRIT 29.1 % (36.0-47.0); HEMOGLOBIN 9.6 g/dL (12.0-15.5)
[2017-05-14 04:31] LABS: INR 1.4 (0.8-1.1); PROTHROMBIN TIME PATIENT 16.6 SEC (11.7-14.0)
[2017-05-14 06:00] VITALS: BP 136/76
[2017-05-14] MEDS: PANTOPRAZOLE 40 MG TABLET.DR. PO SCH (06:03)
[2017-05-14] MEDS: LEVOTHYROXINE 112 MCG TABLET PO SCH (06:03)
[2017-05-14] MEDS: FERROUS SULFATE 325 MG TABLET. PO SCH ×2 (08:35→16:38)
[2017-05-14] MEDS: SENNOSIDES/DOCUSATE 8.6/50MG TABLET. PO SCH (08:35)
[2017-05-14] MEDS: DOCUSATE SODIUM 100 MG CAPSULE. PO SCH ×2 (08:35→20:54)
[2017-05-14] MEDS: TRIAMTERENE/HCTZ 37.5/25MG TABLET. PO SCH (08:35)
[2017-05-14] MEDS: ESTROPIPATE 1.25 MG PO SCH (08:35)
[2017-05-14] MEDS: CELECOXIB 200 MG CAPSULE. PO SCH ×2 (08:35→20:54)
[2017-05-14] MEDS: MULTIVITAMIN with MINERAL TABLET. PO SCH (08:35)
[2017-05-14] MEDS: POTASSIUM CHLORIDE 10 MEQ TABLET.ER. PO SCH (08:35)
[2017-05-14] MEDS ORDERED: WARFARIN 5 MG TABLET. PO ONE (16:00)
[2017-05-14] MEDS: POLYETHYLENE GLYCOL 3350 17 GM PACKET. PO PRN (16:55)
[2017-05-14 17:51] VITALS: BP 114/67
[2017-05-14] MEDS: ATORVASTATIN CALCIUM 20 MG TABLET PO SCH (20:54)
[2017-05-14] MEDS: ASPIRIN ENTERIC COATED 81 MG TABLET.DR. PO SCH (20:54)
[2017-05-15] MEDS: HYDROcodone/APAP 10/325 1 TAB TABLET PO PRN ×3 (00:03→12:34)
[2017-05-15 05:12] VITALS: BP 151/78
[2017-05-15] MEDS: LEVOTHYROXINE 112 MCG TABLET PO SCH (05:21)
[2017-05-15] MEDS: PANTOPRAZOLE 40 MG TABLET.DR. PO SCH (05:21)
[2017-05-15 05:24] LABS: HEMATOCRIT 28.1 % (36.0-47.0); HEMOGLOBIN 9.7 g/dL (12.0-15.5)
[2017-05-15 05:26] LABS: INR 1.5 (0.8-1.1)
[2017-05-15] MEDS: POLYETHYLENE GLYCOL 3350 17 GM PACKET. PO PRN (07:54)
[2017-05-15] MEDS: MULTIVITAMIN with MINERAL TABLET. PO SCH (07:55)
[2017-05-15] MEDS: CELECOXIB 200 MG CAPSULE. PO SCH (07:55)
[2017-05-15] MEDS: SENNOSIDES/DOCUSATE 8.6/50MG TABLET. PO SCH (07:55)
[2017-05-15] MEDS: DOCUSATE SODIUM 100 MG CAPSULE. PO SCH (07:55)
[2017-05-15] MEDS: FERROUS SULFATE 325 MG TABLET. PO SCH (07:55)
[2017-05-15] MEDS: POTASSIUM CHLORIDE 10 MEQ TABLET.ER. PO SCH (07:56)
[2017-05-15] MEDS: TRIAMTERENE/HCTZ 37.5/25MG TABLET. PO SCH (07:58)
[2017-05-15] MEDS ORDERED: WARFARIN 6 MG TABLET. PO ONE (13:00)
[2017-05-15 14:28] VITALS: BP 133/74
--- NOTE | 2017-05-15 22:03 | DS ---
DATE OF DISCHARGE: 05/15/2017 PRINCIPAL DIAGNOSES: Left hip and low back pain. PROCEDURE: Include revision left total hip arthroplasty. DISPOSITION MEDICATIONS: Hydrocodone 10/325 mg 1 p.o. q. 4 hours p.r.n. pain, Coumadin as directed by anticoagulation clinic, resume preoperative medications. DISCHARGE INSTRUCTIONS: Restrictions, the patient is weightbearing as tolerated with standard total hip precautions. Report any redness, drainage, fever, chills, uncontrolled pain or other problems. Follow up with Dr. Epps in 2 weeks. DISPOSITION: correction facility. BRIEF DESCRIPTION OF HOSPITAL COURSE: The patient underwent an uncomplicated revision of her acetabular polyethylene at femoral head. She indicates some relief from the previous pain that she had had, but her back is still giving her significant symptoms, vital signs and laboratory values remained stable throughout her stay. She progressed fairly well with physical therapy. Noted that her has very difficult time ambulating due to his own medical issues and is really unable to give her any significant help. She was discharged to long-term facility following afternoon rehab in stable condition. MARC EPPS MD DR: NEERAJ/lorrie JOB#: [id number] / [id number]
== END 2017-05-15 14:50 | DRG 468 ==
LOC: OPSVCIP 08:48 → 4 SOUTHEST 16:18
PROVIDERS: ADMIT Orthopaedic Surgery; ATTEND Orthopaedic Surgery
PROC: 0SRS0JZ Replacement of Left Hip Joint, Femoral Surface with Synthetic Substitute, Open Approach (ICD-10-PCS; principal; 2017-05-13)
PROC: 0SPB0JZ Removal of Synthetic Substitute from Left Hip Joint, Open Approach (ICD-10-PCS; 2017-05-13)
DX: T84.021A Dislocation of internal left hip prosthesis, initial encounter (principal); E03.9 Hypothyroidism, unspecified; E78.5 Hyperlipidemia, unspecified; I10 Essential (primary) hypertension; Z96.643 Presence of artificial hip joint, bilateral
CPT/HCPCS: 36415; 72170; 85014; 85018; 85610; 85730; 86850; 86900; 86901; C1713; J0171; J0690; J0780; J1100; J1885; J2175; J2405; J2704; J2710; J2795; J3010; J3490; J7030; J7120; S0028; 97116; 97150; 97535

== ENCOUNTER → 2017-09-23 | Outpatient (CLI) | payer MEDICARE, BC ==
[~2017-09-23] MED LIST changes: -ACETAMINOPHEN 500 MG TABLET PO ONE; +CELE200C PO; -CELECOXIB 200 MG CAPSULE. ONE; +GADOBUTROL 7.5 MMOL/7.5 ML VIAL IV ONE; -IV RINGERS,LACTATED 1000ML 1,000 ML IV SCH; -LIDOCAINE 1% 1 ML SYRINGE. ID PRN; -ONDANSETRON PF 4 MG/2 ML VIAL. IV PRN; -TRANEXAMIC ACID 1,000 MG in IV NORMAL SALINE 50ML 50 ML INJ ONE; +WARF-78 PO; +[UNRECOGNIZED DRUG - CODE] PO; -[UNRECOGNIZED DRUG - CODE] PO; -fentaNYL PF VIAL 100 MCG/2 ML VIAL IV PRN
--- NOTE | 2017-09-23 14:33 | KCIC ---
EXAM: Lumbar spine MRI without contrast. HISTORY: Lumbar radiculopathy. TECHNIQUE: Multiplanar, multisequence magnetic resonance imaging of the lumbar spine was performed without contrast. COMPARISON: 03/23/2017. FINDINGS: There is lumbar scoliosis. There is grade 1 anterolisthesis of L4 and L5, measuring 6 mm. There is slight retrolisthesis of L1 on L2 and L2 on L3 and L3 on L4. There is degenerative endplate remodeling with disc space narrowing and osteophytosis at multiple levels. The findings are most significant at L3-L4. This corresponds with the level of maximum scoliotic concavity. There is scarring and susceptibility effect within the posterior back to to prior partial laminectomy surgery. The conus terminates at L1. There is no suspicious osseous lesion. There is no suspicious enhancing lesion. There are right greater than left extra renal pelves. At L1-L2, there is a disc bulge and anterior predominant endplate remodeling. There is minimal left foraminal stenosis. At L2-L3, there is a left lateral predominant disc bulge and endplate remodeling. There is mild left greater than right facet arthropathy. There is hypertrophy of the ligamentum flavum. There is no stenosis. At L3-L4, there is a left paracentral to foraminal disc protrusion superimposed on a disc bulge and endplate remodeling. There is moderate facet arthropathy. There are partial laminectomy changes. There is enhancing soft tissue along the left paracentral to foraminal disc margin likely due to scar/granulation tissue. There is mild left foraminal stenosis with abutment of the exiting left L3 nerve root. There is effacement of the left lateral recess with deviation of the traversing left nerve roots. At L4-L5, there is a broad-based posterior central disc protrusion with 5 mm superior extrusion superimposed on a disc bulge and endplate remodeling. There is severe facet arthropathy. There are partial laminectomy changes. There is grade 1 anterolisthesis. There is mild right foraminal stenosis. At L5-S1, there is a a broad-based right posterior lateral disc perfusion superimposed on a right lateral predominant disc bulge and endplate remodeling. There is mild bilateral facet arthropathy. There is mild right foraminal stenosis with abutment of the exiting right L5 nerve root. IMPRESSION: 1. Multilevel degenerative changes of the lumbar spine, described in detail above. This results in mild left foraminal stenosis with abutment of the exiting left L3 nerve root and left lateral recess narrowing with deviation of the traversing left nerve roots at L3-L4, mild right foraminal stenosis at L4-L5 and mild right foraminal stenosis at L5-S1. These findings are similar compared to the prior study. 2. Lumbar scoliosis and mild grade 1 anterolisthesis of L4 on L5. 3. Partial laminectomy changes at the mid and lower lumbar levels, stable in appearance. Electronically signed by: Bettina Kim MD (09/23/2017 2:30 PM) [email or web address]
--- NOTE | 2017-09-23 15:01 | KCIC ---
EXAM: Lumbar spine, flexion and extension. HISTORY: Pain. COMPARISON: MRI obtained on the same date. FINDINGS: Lateral flexion and extension views of the lumbar spine are obtained. There is grade 1 anterolisthesis of L4 on L5 which measures 3 mm with extension decreases to 5 mm with flexion. There is degenerative endplate remodeling with disc space narrowing predominantly at L3-L4, L4-L5 and L5-S1. There are multiple endplate Schmorl's nodes. There is no fracture. IMPRESSION: 1. Grade 1 anterolisthesis of L4 on L5 which slightly changes between flexion and extension. 2. Multilevel degenerative change, primarily at L3-S1. Electronically signed by: Bettina Kim MD (09/23/2017 2:58 PM) [facility] [id number]
== END | disposition home or self-care (01) ==
LOC: KCIC MRI 12:53
PROVIDERS: ATTEND Neurological Surgery
DX: M51.16 Intervertebral disc disorders with radiculopathy, lumbar region (principal); M48.061 Spinal stenosis, lumbar region without neurogenic claudication; M41.86 Other forms of scoliosis, lumbar region; M51.46 Schmorl's nodes, lumbar region
CPT/HCPCS: 72100; 72158; 82565

== ENCOUNTER → 2017-10-19 | Outpatient (CLI) | payer MEDICARE, BC ==
[~2017-10-19] MED LIST changes: -GADOBUTROL 7.5 MMOL/7.5 ML VIAL IV ONE; +IOHEXOL 180 MG/ML 10 ML VIAL. ONE; +methylPREDNISolone ACETATE 40 MG/ML VIAL. ONE; +methylPREDNISolone ACETATE 80 MG/ML VIAL. ONE
--- NOTE | 2017-10-19 15:02 | PAIN ---
DATE OF SERVICE: 10/19/2017 DIAGNOSES: 1. Lumbar radiculopathy with lumbar degenerative disk disease and post-lumbar laminectomy syndrome. 2. Cervical radiculopathy with cervical degenerative disk disease. 3. Osteoarthritis. HISTORY OF PRESENT ILLNESS: The patient is an 82-year-old female who returns for followup status post caudal approach epidural steroid injection, last seen 11/03/2016. The patient did very well with about 100% improvement. Pain is returning now over the past about 4 weeks or so. The patient reports it is increasing, not a result of any specific recent injury or accident that she is aware of, but the pain has been getting worse in the low back, into the bilateral lower extremities, somewhat worse on the right than the left, but present bilaterally. The patient reports aching, sharp, burning, cramping, radiating, constant, becoming more severe, sometimes unbearable but again the pain intensity is off and on. It is always present. The patient reports no new motor or sensory deficits, no new bowel or bladder incontinence. The patient rates her pain as a 9 on a scale of 10 at its worst, average is 9, 8 at its least, 8 today. The patient reports it awakens her from sleep about every 2-3 hours and has over the past few weeks. She can reposition, take pain medication, get out of bed, get back to bed and usually is able to get back to sleep. The patient reports no other changes. PHYSICAL EXAMINATION: VITAL SIGNS: The patient's blood pressure 140/68, pulse 94, respirations 18, temperature 98.0 degrees Fahrenheit, height 5 feet 4 inches, weighs 149 pounds. GENERAL: The patient is awake, alert, oriented, appropriate, very pleasant demeanor. HEENT: Head shows normocephalic, atraumatic. Extraocular muscles are intact and symmetrical. Oral cavity: Mucous membranes moist and pink. Dentition is intact. NECK: Shows anterior throat supple without palpable lymphadenopathy noted. Swallow reflex symmetrical. CHEST: Normal on inspection. Breath sounds are clear to auscultation bilaterally. HEART: Shows S1, S2 clear. No murmurs auscultated. ABDOMEN: Soft, nontender, nondistended. No palpable organomegaly. No rebound or guarding demonstrated. BACK: Shows spine grossly midline, well-healed surgical scar is noted in lumbar distribution. Flattening of lumbar lordotic curvature with normal thoracic kyphotic curvature and cervical lordotic curvature. The patient shows full rotational motion of cervical spine, both laterally as well as extension and flexion without difficulty. Lumbar spine shows symmetrical on inspection with paraspinous musculature on palpation which shows some moderate tenderness diffusely in the middle and lower distribution of paraspinous muscles, but only to a moderate extent without radiation. No trigger points, no radiation of pain, no tenderness over the sacrum or sacroiliac regions. The patient's lumbar spine shows good rotation, 10 degrees right and left lateral as well as extension greater than 10 degrees, forward flexion 45 degrees without pain reported. EXTREMITIES: Lower extremities show deep tendon reflexes at 1+ in the patellar and tendo calcaneus tendons. Motor exam is strong with 5/5 dorsiflexion, extension, quadriceps and hamstring flexion and is symmetrical. No peripheral edema is noted. Peripheral pulses are 1+ posterior tibial bilaterally and equal. Options were discussed with the patient. The patient's old chart was reviewed as her current medication regimen and updated. Current review of systems updated today as well. We will proceed with a caudal approach epidural steroid injection. She has done very well with these in the past. Risks were again discussed including, but not limited to bleeding, infection, possibility of epidural hematoma, subsequent neurological compromise, dural puncture, headaches, spinal cord and/or nerve damage, side effects of steroid medication and poor results regarding pain control. The patient understands and wished to proceed. The patient will return to clinic in approximately 2 weeks for followup. She was counseled to return appointment, activity level and side effects to be aware of. DIAGNOSES: 1. Lumbar radiculopathy with lumbar degenerative disk disease, post-lumbar laminectomy syndrome. 2. Cervical radiculopathy with cervical degenerative disk disease and cervicalgia. PROCEDURE: Caudal approach epidural steroid injection under sterile prep and drape using C-arm, fluoroscopic guidance and local anesthetic. Medication injected a total of 120 mg Depo-Medrol plus 10 mL of preservative-free normal saline, 2 mL of Isovue contrast. CONDITION AT DISCHARGE: Stable. The patient tolerated procedure well, had no complications. YESSY MASON MD DR: ANTHONY/lorrie JOB#: [id number] / [id number]
== END | disposition home or self-care (01) ==
LOC: PNCL 11:41
PROVIDERS: ATTEND Anesthesiology
DX: M51.16 Intervertebral disc disorders with radiculopathy, lumbar region (principal); M96.1 Postlaminectomy syndrome, not elsewhere classified; M50.10 Cervical disc disorder with radiculopathy, unspecified cervical region; E78.00 Pure hypercholesterolemia, unspecified; E03.9 Hypothyroidism, unspecified; F41.9 Anxiety disorder, unspecified; Z98.41 Cataract extraction status, right eye; Z98.42 Cataract extraction status, left eye; Z86.69 Personal history of other diseases of the nervous system and sense organs; Z90.49 Acquired absence of other specified parts of digestive tract; Z87.39 Personal history of other diseases of the musculoskeletal system and connective tissue; Z86.39 Personal history of other endocrine, nutritional and metabolic disease; Z88.6 Allergy status to analgesic agent; Z88.8 Allergy status to other drugs, medicaments and biological substances
CPT/HCPCS: 62323; J1030; J1040

== ENCOUNTER → 2017-11-06 | Outpatient (CLI) | payer MEDICARE, BC ==
[~2017-11-06] MED LIST changes: -IOHEXOL 180 MG/ML 10 ML VIAL. ONE; -methylPREDNISolone ACETATE 40 MG/ML VIAL. ONE; -methylPREDNISolone ACETATE 80 MG/ML VIAL. ONE
--- NOTE | 2017-11-06 16:02 | KCIC ---
Bilateral digital screening mammograms: Reason for examination: Routine screening. Comparison is made to previous studies dated 11/05/2016 and 11/05/2015. Interpretation was made with the benefit of CAD. The skin and nipples show no abnormalities. No abnormal axillary lymph nodes are seen. The breast parenchyma shows scattered fibroglandular density. (Breast density: Category B.) There are no dominant masses, suspicious calcifications or architectural distortions. Impression: No evidence of malignancy. Recommend routine screening. BI-RADS Category 1: Negative. "Our facility is accredited by the [employer] Mammography Program." This patient's information has been entered into a reminder system for the patient to be notified with the results of her examination and a target date for the next mammogram. Electronically signed by: Angela Aguirre MD (11/06/2017 3:58 PM) [id number]
== END | disposition home or self-care (01) ==
LOC: KCIC MAMMO 13:33
PROVIDERS: ATTEND Family Medicine
DX: Z12.31 Encounter for screening mammogram for malignant neoplasm of breast (principal)
CPT/HCPCS: G0202; 77067

== ENCOUNTER → 2017-11-09 | Outpatient (CLI) | payer MEDICARE, BC ==
[~2017-11-09] MED LIST changes: +IOHEXOL 180 MG/ML 10 ML VIAL. ONE; +methylPREDNISolone ACETATE 40 MG/ML VIAL. ONE; +methylPREDNISolone ACETATE 80 MG/ML VIAL. ONE
--- NOTE | 2017-11-09 14:27 | PAIN ---
DATE OF SERVICE: 11/09/2017 DIAGNOSES: 1. Cervical radiculopathy with cervical degenerative disk disease and cervicalgia. 2. Lumbar radiculopathy with lumbar degenerative disk disease and post-lumbar laminectomy syndrome. 3. Bilateral sacroiliitis. 4. Shoulder osteoarthritis bilaterally. HISTORY OF PRESENT ILLNESS: The patient is an 82-year-old female who returns for followup status post caudal epidural steroid injection on 10/19/2017. The patient did very well with this with about 50% improvement overall, but still some significant pain in low back. Her chief complaint today, however, is neck and bilateral shoulder pain, slightly worse on the right than the left. The patient reports it is increasing with activity, standing, walking, waking her from sleep occasionally at night, but not every night. The patient reports she sleeps about 3 hours and has to reposition because of the pain, radiating to the bilateral shoulders, slightly more on the right upper extremity than left. The patient reports pain is sharp, also radiating with some cramping, dull and aching sensations as well. Low back is also aching and dull, burning and stabbing with radiating pain into the lower extremities. The patient reports her pain is an 8 on a scale of 10 at its worst, 8 on average and is a 5 at its least and is an 8 today. The patient reports no new motor or sensory deficits, no new bowel or bladder incontinence or other complaints. PHYSICAL EXAMINATION: VITAL SIGNS: The patient's blood pressure is 174/81, pulse is 87, respirations 18, temperature is 98.2 degrees Fahrenheit, weight is 150 pounds. GENERAL: The patient is awake, alert, oriented, appropriate, very pleasant demeanor. HEENT: Head shows normocephalic, atraumatic. The patient wears eye glasses. Extraocular movements are intact, symmetrical. Oral cavity: Mucous membranes moist and pink. Dentition is intact. NECK: Shows anterior throat supple without palpable lymphadenopathy noted. Swallow reflex symmetrical. CHEST: Shows normal on inspection. Breath sounds clear to auscultation bilaterally. HEART: Shows S1, S2 clear. No murmurs auscultated. ABDOMEN: Soft, nontender, nondistended. No palpable organomegaly. No rebound or guarding demonstrated. BACK: Shows spine grossly midline, some minor flattening of lumbar lordotic curvature, normal thoracic kyphosis. Lumbar previously well-healed surgical scars noted. Neck shows normal cervical lordotic curvature, with inspection shows normal and symmetrical paraspinous musculature. On palpation shows some moderate tenderness diffusely in the middle and lower distribution of paraspinous muscles into the superolateral and distal trapezius, again worse on the right than the left. No specific trigger points, no radiation of pain, no tenderness over the spinous processes. The patient has good rotational motion of the cervical spine, both laterally greater than 45 degrees, reporting slight pain with 45 degrees past rotation on the right, but not to the left. Full extension, full forward flexion performed without significant pain reported as well. EXTREMITIES: Upper extremities show deep tendon reflexes at 2+ in the biceps, triceps tendons. [employer] strength shows 5/5, her bicep and tricep flexion slightly weaker on the right at 4/5. Bicep, tricep at 5/5 on the left. Peripheral pulses are 2+ radial distribution. No peripheral edema is noted. Options were discussed with the patient. The patient's old chart was reviewed as her current medication regimen updated. Current review of systems updated today as well. We will proceed today with a cervical epidural steroid injection. She did very well with these in the past. Risks were discussed including but not limited to bleeding, infection, possibility of epidural hematoma and subsequent neurological compromise, dural punctures, headaches, spinal cord and/or nerve damage, side effects of steroid medication and poor results regarding pain control. The patient understands and wished to proceed. The patient will return to clinic in approximately 2 weeks for followup, was counseled on return appointment, activity level and side effects to be aware of. DIAGNOSES: Cervical radiculopathy, cervical degenerative disk disease and cervicalgia. PROCEDURE: Cervical epidural steroid injection, translaminar approach at C6 level using C-arm fluoroscopic guidance under sterile prep and drape using local anesthetic. MEDICATION INJECTED: A total of 120 mg Depo-Medrol plus 5 mL preservative-free normal saline and 2 mL Isovue for contrast. CONDITION AT DISCHARGE: Stable. The patient tolerated procedure well, had no complications. YESSY MASON MD DR: ANTHONY/lorrie JOB#: [id number] / [id number]
== END | disposition home or self-care (01) ==
LOC: PNCL 11:53
PROVIDERS: ATTEND Anesthesiology
DX: M50.120 Mid-cervical disc disorder, unspecified level (principal); M51.16 Intervertebral disc disorders with radiculopathy, lumbar region; M96.1 Postlaminectomy syndrome, not elsewhere classified; M46.1 Sacroiliitis, not elsewhere classified; M19.012 Primary osteoarthritis, left shoulder; M19.011 Primary osteoarthritis, right shoulder; Z87.440 Personal history of urinary (tract) infections; Z79.899 Other long term (current) drug therapy; E87.6 Hypokalemia; Z90.49 Acquired absence of other specified parts of digestive tract; Z88.6 Allergy status to analgesic agent; Z88.8 Allergy status to other drugs, medicaments and biological substances; F41.9 Anxiety disorder, unspecified; Z98.41 Cataract extraction status, right eye; Z98.42 Cataract extraction status, left eye; E03.9 Hypothyroidism, unspecified; Z86.69 Personal history of other diseases of the nervous system and sense organs; Z87.39 Personal history of other diseases of the musculoskeletal system and connective tissue; Z86.39 Personal history of other endocrine, nutritional and metabolic disease
CPT/HCPCS: 62321; J1030; J1040

== ENCOUNTER → 2018-07-15 | Outpatient (CLI) | payer MEDICARE ==
[~2018-07-15] MED LIST changes: +GADOBUTROL 7.5 MMOL/7.5 ML VIAL IV ONE; -IOHEXOL 180 MG/ML 10 ML VIAL. ONE; +POTA10TA12 PO; -POTASSIUM CHLO10 MEQ PO; -methylPREDNISolone ACETATE 40 MG/ML VIAL. ONE; -methylPREDNISolone ACETATE 80 MG/ML VIAL. ONE
--- NOTE | 2018-07-15 16:45 | KCIC ---
MRI of the lumbar spine without and with contrast 07/15/2018 CLINICAL HISTORY: Low back pain which radiates down the left leg. History of previous lumbar spine surgery. TECHNIQUE: Unenhanced T1-weighted and T2-weighted sagittal and axial and inversion recovery sagittal images of the lumbar spine were obtained. After the intravenous administration of 6 cc of Gadavist, enhanced T1-weighted sagittal and axial images of the lumbar spine were obtained. FINDINGS: Minimal S-shaped curvature of the thoracolumbar spine is seen. The patient is post laminectomy and posterolateral fusion using pedicle screws and stabilizing rods extending from L3 to S1. A fluid collection is seen within the laminectomy site which measures 6.3 x 2.5 x 1.8 cm in craniocaudal, transverse and AP dimensions. This likely represents a seroma. A pseudomeningocele is not excluded. Degenerative signal changes and loss of height are seen involving all of the disks of the lumbar spine. Degenerative signal changes are seen within the marrow surrounding these discs. The conus medullaris is within normal limits in morphology, position, and signal characteristics. At the L1-2 disc space there is a moderate generalized disc bulge. Degenerative changes are seen involving the facet joints bilaterally.These findings do not result in significant central spinal canal or neural foraminal stenosis. At the L2-3 disc space there is a mild to moderate generalized disc bulge. Degenerative changes are seen involving the facet joints bilaterally. There is mild ligamentum flavum hypertrophy bilaterally. These findings when combined result in mild central spinal canal stenosis. No neural foraminal stenosis is seen. At the L3-4 disc space there is a mild to moderate generalized disc bulge. Degenerative changes are seen involving the facet joints bilaterally. These findings do not result in significant central spinal canal or neural foraminal stenosis. At the L4-5 disc space is a moderate generalized disc bulge. Degenerative changes are seen involving the facet joints bilaterally. These findings do not result in significant central spinal canal or neural foraminal stenosis. At the L5-S1 disc space there is a mild generalized disc bulge. Bone graft material seen within the L5-S1 disc space to the left of midline. Degenerative changes are seen involving the facet joints bilaterally. These findings do not result in significant central spinal canal or neural foraminal stenosis. IMPRESSION: 1. Post laminectomy and fusion extending from L3 to S1. 2. The changes of degenerative disc disease are seen involving the lumbar spine. These findings result in mild central spinal canal stenosis at L2-3. No neural foraminal stenosis is seen. Electronically signed by: Dio Tejeda MD (07/15/2018 4:41 PM) [facility]
== END | disposition home or self-care (01) ==
LOC: KCIC MRI 14:39
PROVIDERS: ATTEND Orthopaedic Surgery Orthopaedic Surgery of the Spine
DX: M43.16 Spondylolisthesis, lumbar region (principal); M48.061 Spinal stenosis, lumbar region without neurogenic claudication; M51.36 Other intervertebral disc degeneration, lumbar region
CPT/HCPCS: 72158; 82565; A9585

== ENCOUNTER → 2018-09-23 | Outpatient (CLI) | payer MEDICARE ==
[~2018-09-23] MED LIST changes: +ACET500T68 PO; -GADOBUTROL 7.5 MMOL/7.5 ML VIAL IV ONE; +IOHEXOL 180 MG/ML 10 ML VIAL. ONE; +LIDOCAINE 1% PF 2 ML VIAL. ONE; +methylPREDNISolone ACETATE 40 MG/ML VIAL. ONE; +methylPREDNISolone ACETATE 80 MG/ML VIAL. ONE
--- NOTE | 2018-09-24 01:57 | PAIN ---
DATE OF SERVICE: 09/23/2018 PROGRESS NOTE FOR PAIN CLINIC DIAGNOSES: 1. Lumbar radiculopathy with lumbar degenerative disk disease and lumbar post-laminectomy syndrome. 2. Cervical radiculopathy with cervical degenerative disk disease and cervicalgia. HISTORY OF PRESENT ILLNESS: The patient is an 83-year-old female who returns for followup, last seen on 11/09/2017. The patient had a cervical epidural steroid injection at that time. She had had caudal epidural steroid injections for her low back in the past as well. The patient reports she did very well after the cervical epidural steroid injection. Since that time, she has had a lumbar surgery in April of this year at the [facility], which was a bilateral L3 through S1 posterior instrumentation and fusion with multilevel interbody fusion as well on May 03. The patient reports that since the surgery, her pain has not changed at all in the low back, still significant pain across the low back, into the bilateral hips, posterior gluteus, posterior thighs, posterior caves, feels that her feet are on fire and also cramping and shooting pain becoming more severe, more unbearable, worse with walking, standing, better with sitting or lying down but awakens her from sleep at least once or twice a night. The patient reports the pain is a 9 on a scale of 10 at its worst, average and at its least and is a 9 today. The patient reports no new motor or sensory deficits, but significant pain in the low back and bilateral lower extremities and reports essentially is exactly as it was prior to her surgery. The patient did have a new MRI scan done on 07/15/2018 showing post-laminectomy fusion from L3 to S1 with degenerative disk disease involving the lumbar spine, mild central spinal canal stenosis at L2-L3 without neural foraminal stenosis. The patient reports no loss of motor function, but significant fatigability of both lower extremities. She is walking with a cane today in her right hand. The patient reports her neck is doing still somewhat better but does need some attention as well. She has some pain in the bilateral shoulders, more on the right than the left, which has had a shoulder surgery. PHYSICAL EXAMINATION: VITAL SIGNS: Today, the patient's blood pressure 136/83, pulse 93, respirations 16 and temperature 98.2 degrees Fahrenheit. Weight is 148 pounds. GENERAL: The patient is awake, alert, oriented, appropriate and very pleasant demeanor. HEENT: Head shows normocephalic and atraumatic. Extraocular movements are intact and symmetrical. Oral cavity: Mucous membranes moist and pink. Dentition is intact. NECK: Shows anterior throat supple without palpable lymphadenopathy noted. Swallow reflex is symmetrical. CHEST: Shows normal on inspection. Breath sounds are clear to auscultation bilaterally. HEART: Shows S1 and S2 clear. No murmurs auscultated. ABDOMEN: Soft, nontender and nondistended. No palpable organomegaly is noted. No rebound or guarding demonstrated. BACK: Shows spine grossly in the midline. Normal-appearing cervical lordotic curvature, thoracic kyphotic curvature and lumbar lordotic curvature. Lumbar paraspinous musculature shows symmetrical on inspection, with very extensive well-healed surgical scar in the midline in the lumbar distribution. The patient shows good rotational motion of the lumbar spine without significant increase in pain, both laterally as well as extension and flexion. EXTREMITIES: The patient's lower extremities show deep tendon reflexes at 1+ in the patellar and tendo-calcaneus tendons. Motor exam is approximately 4 on a scale of 5, but equal and symmetrical bilaterally. Peripheral pulses are 1+ posterior tibia. No peripheral edema is noted. Options were discussed with the patient. The patient's old chart was reviewed as well as her current medication regimen updated. Current review of systems updated today as well and we will proceed with a caudal approach epidural steroid injection today with fluoroscopic guidance. Risks were again discussed including, but not limited to bleeding, infection, possibility of epidural hematoma, subsequent neurologic compromise, dural puncture, headaches, spinal cord and/or nerve damage, side effects of steroid medication and poor results regarding pain control. The patient understands and wished to proceed. The patient will return to the clinic in approximately 2 weeks for followup, was counseled as to return appointment, activity level and side effects to be aware of. DIAGNOSIS: Lumbar radiculopathy with lumbar degenerative disk and post-laminectomy syndrome. PROCEDURE: Lumbar Caudal approach epidural steroid injection using C-arm fluoroscopic guidance under sterile prep and drape using local anesthetic. MEDICATION INJECTED: A total of 120 mg Depo-Medrol plus 10 mL of preservative-free normal saline and 2 mL of Isovue for contrast. CONDITION AT DISCHARGE: Stable. The patient tolerated the procedure well and had no complications. YESSY MASON MD DR: Sonido JOB#: [id number] / [id number]
== END | disposition home or self-care (01) ==
LOC: PNCL 11:35
PROVIDERS: ATTEND Anesthesiology
DX: M51.16 Intervertebral disc disorders with radiculopathy, lumbar region (principal); M96.1 Postlaminectomy syndrome, not elsewhere classified; M50.10 Cervical disc disorder with radiculopathy, unspecified cervical region; Z88.5 Allergy status to narcotic agent; Z88.8 Allergy status to other drugs, medicaments and biological substances
CPT/HCPCS: 62323; J1030; J1040; Q9965

== ENCOUNTER → 2018-10-07 | Outpatient (CLI) | payer MEDICARE ==
[~2018-10-07] MED LIST changes: -LIDOCAINE 1% PF 2 ML VIAL. ONE
--- NOTE | 2018-10-07 20:37 | PAIN ---
DATE OF SERVICE: 10/07/2018 PROGRESS NOTE FOR PAIN CLINIC DIAGNOSES: 1. Lumbar radiculopathy with lumbar degenerative disk disease and lumbar post-laminectomy syndrome. 2. Cervical radiculopathy with cervical degenerative disk disease and cervicalgia. HISTORY OF PRESENT ILLNESS: The patient is an 83-year-old female who returns to follow up status post caudal epidural steroid injection x 1, this series 09/23/2018. The patient did fairly well, has had a 50% improvement but only for about a week or so. The patient reports the pain returned after that in the low back and bilateral lower extremities, mostly in the posterior gluteus, posterior thighs, posterior calves, heels and feels like they are burning and fiery pain as well as across the low back. The patient describes the pain as tingling, burning, cramping, stabbing, shooting, sharp, aching, constant, radiating becoming more severe, more unbearable with standing and walking. The patient reports the pain is a 10 on a scale of 10 at all times, worst, least and average and is a 10 today. The patient reports significant difficulty with taking care of her , lifting a walker in and out of the car, helping him at home as well. We discussed this with her in some detail and we will have [employer] contact her to see if there is any assistance that they may be able to provide for she and her as she has a lot to take care of and it is causing significant increase in pain in her as well. The patient reports it awakens her from sleep at night, varies how often but usually each night with the pain in the low back and the legs. The patient reports no loss of motor function and no bowel or bladder incontinence or other complaints. PHYSICAL EXAMINATION: VITAL SIGNS: The patient's blood pressure is 134/65, pulse 90, respirations 16 and temperature is 98.0 degrees Fahrenheit. Weight is 145 pounds. GENERAL: The patient is awake, alert, oriented, appropriate and very pleasant demeanor. HEENT: Head shows normocephalic and atraumatic. Extraocular movements are intact and symmetrical. Oral cavity: Mucous membranes moist and pink. Dentition is intact. NECK: Shows anterior throat supple without palpable lymphadenopathy noted. Swallow reflex symmetrical. CHEST: Shows normal with inspection. Breath sounds clear to auscultation bilaterally. HEART: Shows S1 and S2 clear. No murmurs auscultated. ABDOMEN: Soft, nontender and nondistended. No palpable organomegaly is noted. No rebound or guarding demonstrated. BACK: Shows spine grossly in the midline. Normal appearing thoracic kyphosis and lumbar lordotic curvature. Lumbar paraspinous muscle shows symmetrical on inspection. On palpation shows some moderate tenderness diffusely in the low lumbar distribution. Well-healed surgical scar is again appreciated. No radiation of pain is demonstrated. No atrophy, hypertrophy or trigger points. No tenderness over the sacrum itself or the sacroiliac regions on exam today. EXTREMITIES: Lower extremities show deep tendon reflexes 1+ in the patellar and tendo-calcaneus tendons are equal. Motor exam is approximately 4 on a scale of 5 but equal and symmetrical dorsiflexion, extension, quadriceps and hamstring flexion. Peripheral pulses are 1+ posterior tibial. No peripheral edema is noted bilaterally. Options were discussed with the patient. The patient's old chart was reviewed as well as her current medication regimen updated. Current review of systems updated today as well. We will proceed with a second in the series of caudal epidural steroid injection today with fluoroscopic guidance. Risks were again discussed including, but not limited to bleeding, infection, possibility of epidural hematoma, subsequent neurological compromise, dural puncture, headaches, spinal cord and/or nerve damage, side effects of steroid medication and poor results regarding pain control. The patient understands and wished to proceed. The patient will return to the clinic in approximately 2 weeks for followup, was counseled as to return appointment, activity level and side effects to be aware of. DIAGNOSES: Lumbar radiculopathy with lumbar degenerative disk disease and lumbar post-laminectomy syndrome. PROCEDURE: Caudal approach epidural steroid injection using C-arm fluoroscopic guidance under sterile prep and drape using local anesthetic. MEDICATION INJECTED: A total of 120 mg Depo-Medrol plus 10 mL of preservative-free normal saline and 2 mL of Isovue for contrast. CONDITION AT DISCHARGE: Stable. The patient the tolerated procedure well and had no complications. YESSY MASON MD DR: ANTHONY/lorrie JOB#: [id number] / [id number]
== END | disposition home or self-care (01) ==
LOC: PNCL 13:11
PROVIDERS: ATTEND Anesthesiology
DX: M51.16 Intervertebral disc disorders with radiculopathy, lumbar region (principal); M96.1 Postlaminectomy syndrome, not elsewhere classified; M50.10 Cervical disc disorder with radiculopathy, unspecified cervical region; Z88.5 Allergy status to narcotic agent; Z88.8 Allergy status to other drugs, medicaments and biological substances
CPT/HCPCS: 62323; J1030; J1040; Q9965

== ENCOUNTER → 2018-10-20 | Outpatient (CLI) | payer MEDICARE ==
[~2018-10-20] MED LIST changes: -HYDR-2758 PO; +HYDR-2761 PO; -HYDR-2762 PO; +HYDR-2765 PO; -HYDR-2766 PO; +HYDR-2769 PO; -IOHEXOL 180 MG/ML 10 ML VIAL. ONE; -methylPREDNISolone ACETATE 40 MG/ML VIAL. ONE; -methylPREDNISolone ACETATE 80 MG/ML VIAL. ONE
--- NOTE | 2018-10-20 15:50 | KCIC ---
MR of the left shoulder Indication: Left shoulder lifting injury 1.5 weeks ago. Pain and decreased range of motion.. Comparison: None are available. Technique: Standard multiplanar sequences are obtained. Findings: Artifact: No significant image degradation. Acromioclavicular joint: Mildly degenerative. Rotator cuff: * Supraspinatus-infraspinatus tendon: Complete full-thickness rupture with severe retraction to the level of the superior labrum. Intramuscular infraspinatus edema. * Subscapularis tendon: High-grade tear * Muscle bulk: Moderate to severe atrophy with volume loss and fatty infiltration. * Subacromial subdeltoid bursa: Small effusion. Fluid: Small glenohumeral effusion. Glenohumeral cartilage: Mildly degenerative. Labrum: Superior labral degeneration Biceps tendon: High-grade tear, particularly at the entrance to the bicipital groove. Bones: No lesion or acute fracture. Soft tissue: No acute findings.. Impression: 1. Massive rotator cuff tear with retraction. 2. No high-grade biceps tendon tear. Electronically signed by: Collins Penaloza MD (10/20/2018 3:47 PM) [facility]
== END | disposition home or self-care (01) ==
LOC: KCIC MRI 12:43
PROVIDERS: ATTEND Orthopaedic Surgery
DX: S49.82XA Other specified injuries of left shoulder and upper arm, initial encounter (principal); M75.102 Unspecified rotator cuff tear or rupture of left shoulder, not specified as traumatic; M25.412 Effusion, left shoulder; R60.0 Localized edema; X58.XXXA Exposure to other specified factors, initial encounter; Y93.89 Activity, other specified; Y92.89 Other specified places as the place of occurrence of the external cause; Y99.8 Other external cause status
CPT/HCPCS: 73221

== ENCOUNTER → 2018-12-30 | Outpatient (CLI) | payer MEDICARE | END | disposition home or self-care (01) | LOC: PMGWOUND 07:55 | PROVIDERS: ATTEND Preventive Medicine Undersea and Hyperbaric Medicine | DX: R20.2 Paresthesia of skin (principal); E03.9 Hypothyroidism, unspecified; I10 Essential (primary) hypertension; E78.5 Hyperlipidemia, unspecified; F41.9 Anxiety disorder, unspecified; K21.9 Gastro-esophageal reflux disease without esophagitis; Z90.710 Acquired absence of both cervix and uterus | CPT/HCPCS: 99213 ==

== ENCOUNTER 2019-06-13 09:32 | Emergency (ER) | payer MEDICARE ==
[~2019-06-13] VITALS: Ht 162.6 cm; Wt 65.8 kg
[~2019-06-13 09:32] MED LIST changes: +OMEP20CA10 PO; -OMEP20CA9 PO
[2019-06-13 10:15] VITALS: BP 180/89
[2019-06-13] MEDS ORDERED: HYDR-3164 PO (10:26)
--- NOTE | 2019-06-13 10:26 | PHYS DOC ---
Past Medical History Past Medical History: Arthritis, High Cholesterol, Hypothyroid, UTI, Other Additional Past Medical Histor: HEART MURMUR Past Surgical History: Cholecystectomy, Hip Replacement, Hysterectomy, Tonsillectomy, Other Additional Past Surgical Histo: BILAT HIP REPLACEMENT X 3, RT SHOULDER Alcohol Use: None Drug Use: None Adult General Chief Complaint Chief Complaint: MULTIPLE COMPLAINTS HPI HPI Patient is a 84 year old female who presents with complaining of rash. Patient complaining of painful rash in right side of abdomen extending to the back for one week that gradually getting worse and rated her pain 10 over 10. Patient denies sick contacts and shortness of breath. Patient also complaining of numbness of bilateral hands constantly after had left shoulder surgery 3 months ago. Patient also states she had a fall one year ago and another fall several weeks ago. Patient states her primary care physician does not listen her and she wants hospitalization and taking care of all of her problems. Review of Systems Review of Systems Constitutional: Denies fever or chills [] Eyes: Denies change in visual acuity, redness, or eye pain [] HENT: Denies nasal congestion or sore throat [] Respiratory: Denies cough or shortness of breath [] Cardiovascular: No additional information not addressed in HPI [] GI: Denies abdominal pain, nausea, vomiting, bloody stools or diarrhea [] : Denies dysuria or hematuria [] Musculoskeletal: Denies back pain or joint pain [] Integument: Reports rash Neurologic: Denies headache, focal weakness, reports sensory changes [] Endocrine: Denies polyuria or polydipsia [] All other systems were reviewed and found to be within normal limits, except as documented in this note. Current Medications Current Medications Current Medications Medications (Trade) Dose Ordered Sig/Get Start Time Stop Time Status Last Admin Dose Admin Acetaminophen/ Hydrocodone Bitart (Lortab 5/325) 1 tab 1X ONCE 06/13/19 10:30 06/13/19 10:31 DC 06/13/19 10:30 1 TAB Allergies Allergies Allergies Coded Allergies Type Severity Reaction Last Updated Verified albumin colloid, human Allergy Intermediate 05/13/17 Yes hydromorphone Allergy Intermediate Unknown 05/12/17 Yes morphine Allergy Intermediate rash, grayson 06/13/19 Yes nitrofurantoin Allergy Intermediate 05/12/17 Yes Physical Exam Physical Exam Constitutional: Well developed, well nourished, mild distress, non-toxic appearance. [] HENT: Normocephalic, atraumatic Eyes: PERRLA, EOMI, conjunctiva normal, no discharge. [] Neck: Normal range of motion, no tenderness, supple, no stridor. [] Cardiovascular:Heart rate regular rhythm, no murmur [] Lungs & Thorax: Bilateral breath sounds clear to auscultation [] Abdomen: Bowel sounds normal, soft, no tenderness, no masses, no pulsatile masses. [] Skin: Warm, dry, no erythema, area of blistering rash in right side of abdomen without passing midline with extending to right side of back without passing midline without sign of infection Back: No tenderness, no CVA tenderness. [] Extremities: No tenderness, no cyanosis, no clubbing, ROM intact, no edema. [] Neurologic: Alert and oriented X 3, normal motor function, normal sensory function without paresthesias , no focal deficits noted. [] Psychologic: Affect anxious, judgement normal, mood normal. [] Current Patient Data Vital Signs Vital Signs Date Time Temp Pulse Resp B/P (MAP) Pulse Ox O2 Delivery O2 Flow Rate FiO2 06/13/19 10:30 16 99 Room Air 06/13/19 10:15 66 180/89 (119) 06/13/19 10:07 98.0 98.0 Radiology/Procedures Radiology/Procedures [] Course & Med Decision Making Course & Med Decision Making Evaluation of patient in ER showed 84-year-old male patient with multiple medical complaints and mainly complaining of rash in right side of abdominal and back as shingles for 1 week. Patient had multiple chronic problem and asking for hospitalization for evaluation but was told that she needs to follow with her primary care physician regarding chronic problems. Patient treated with [place] in ER and prescription for hydrocodone was given. I've spoken with the patient and/or caregivers. I've explained the patient's condition, diagnosis and treatment plan based on information available to me at this time. I've answered the patient's and/or caregivers questions and addressed any concerns. The patient and/or caregivers have a good understanding the patient's diagnosis, condition and treatment plan as can be expected at this point. Vital signs have been stabilized. The patient's condition is stable for discharge from the emergency department. The patient will pursue further outpatient evaluation with her primary care provider or other designated consulting physician as outlined in the discharge instructions. Patient and/or caregivers are agreeable to this plan of care and follow-up instructions have been explained in detail. The patient and/or caregivers have received these instructions in written format and expressed understanding of these discharge instructions. The patient and her caregivers are aware that if any significant change in condition or worsening of symptoms should prompt him to immediately return to this of the closest emergency department. If an emergent department is not readily available I would encourage him to call 911. Dragon Disclaimer Dragon Disclaimer This electronic medical record was generated, in whole or in part, using a voice recognition dictation system. Departure Departure Impression: Primary Impression: Shingles Disposition: HOME, SELF-CARE (@1021) Condition: STABLE Referrals: RANDAL SINGH (PCP) Patient Instructions: Shingles Additional Instructions: Follow-up with your primary care physician in 3-5 days Return to ER if not getting better Scripts Hydrocodone/Apap 5-325 (NORCO 5-325 TABLET) 1 Each Tablet 1 TAB PO PRN Q6HRS PRN for PAIN, #14 TAB 0 Refills Prov: MARNIE GALICIA MD 06/13/19 Problem Qualifiers Primary Impression: Shingles Herpes zoster complications: without complications Qualified Codes: B02.9 - Zoster without complications MARNIE GALICIA MD Jun 13, 2019 10:26
[2019-06-13] MEDS ORDERED: HYDROcodone/APAP 5/325MG 1 TAB TABLET PO ONE (10:30)
== END 2019-06-13 10:46 | disposition home or self-care (01) ==
LOC: ER 09:32
DX: B02.9 Zoster without complications (principal); E78.00 Pure hypercholesterolemia, unspecified; E03.9 Hypothyroidism, unspecified; Z88.5 Allergy status to narcotic agent; Z88.8 Allergy status to other drugs, medicaments and biological substances; Z88.7 Allergy status to serum and vaccine
CPT/HCPCS: 99284

== ENCOUNTER 2020-12-08 17:04 | Inpatient (IN) | payer MEDICARE ==
[~2020-12-08] VITALS: Ht 162.6 cm; Wt 66.7 kg
[~2020-12-08 17:04] MED LIST changes: -EZET10TA18 PO; +EZET10TA20 PO; +HYDR-3164 PO; -LEVO112T4 PO; +LEVO112T49 PO; -OMEP20CA10 PO; +OMEP20CA16 PO; -OMEP40CA5 PO; +OMEP40CA7 PO; +PHEN16.227 PO; -WARF-78 PO; +WARF5TAB2 PO; -[UNRECOGNIZED DRUG - CODE] PO
[2020-12-08] MEDS ORDERED: NEOMY/BACITR/POLYMYXIN OINT PACKET. TP ONE (17:15)
[2020-12-08] MEDS ORDERED: IV NORMAL SALINE 1000ML BAG 1,000 ML IV ONE (17:15)
--- NOTE | 2020-12-08 17:30 | PHYS DOC ---
Past Medical History Past Medical History: Arthritis, High Cholesterol, Hypothyroid, UTI, Other Additional Past Medical Histor: HEART MURMUR,SHINGLES Past Medical History Limited secondary to altered mental status (VINCENT CORADO DO) Past Surgical History: Cholecystectomy, Hip Replacement, Hysterectomy, Tonsillectomy, Other Additional Past Surgical Histo: BILAT HIP REPLACEMENT X 3, BILAT SHOULDER Past Surgical History Limited secondary to altered mental status (VINCENT CORADO DO) Smoking Status: Never Smoker Alcohol Use: None Drug Use: None Social History Limited secondary to altered mental status (VINCENT CORADO DO) General Adult EDM: Chief Complaint: TRAUMA ALERT HPI: HPI: Patient is a 85 year old female presents via EMS with report of syncopal episode at home while patient went out to get her mail. Patient subsequently fell struck her head and complains of left elbow injury/deformity. Denies any nausea or vomiting. Patient also reports she broke her front tooth. EMS reports patient has been confused during transport. EMS reports giving 100 mcg of fentanyl in route. Patient denies any use of blood thinners. Denies fever or chills. History of present illness limited secondary to altered mental status (VINCENT CORADO DO) Review of Systems: Review of Systems: Constitutional: Denies fever or chills HENT: Denies nasal congestion or epistaxis Respiratory: Denies cough or shortness of breath Cardiovascular: Denies chest pain or palpitations GI: Denies abdominal pain, nausea, or vomiting : Denies dysuria or hematuria Musculoskeletal: Denies neck pain; reports left elbow pain Integument: Denies rash or skin lesions Neurologic: Reports altered mental status and headache Review of systems limited secondary to altered mental status (VINCENT CORADO DO) Current Medications: Current Medications Medications (Trade) Dose Ordered Sig/Get Start Time Stop Time Status Last Admin Dose Admin Neomycin/ Polymyxin/ Bacitracin (Triple Antibiotic Ointment) 1 pkt 1X ONCE 12/08/20 17:15 12/08/20 17:17 DC Sodium Chloride 1,000 ml @ 1,000 mls/hr 1X ONCE 12/08/20 17:15 12/08/20 18:14 (VINCENT CORADO DO) Allergies: Allergies: Allergies Coded Allergies Type Severity Reaction Last Updated Verified albumin colloid, human Allergy Intermediate 05/13/17 Yes hydromorphone Allergy Intermediate Unknown 05/12/17 Yes morphine Allergy Intermediate rash, grayson 06/13/19 Yes nitrofurantoin Allergy Intermediate 05/12/17 Yes (VINCENT CORADO DO) Physical Exam: PE: Constitutional: Well developed, well nourished, in obvious pain, tearful HENT: Normocephalic, left forehead contusion/ecchymosis noted above left eyebrow, left lower lip contusion, mucosal abrasion noted, right maxillary central incisor chip fracture Eyes: PERRL, EOMI, conjunctiva normal, no discharge, no periorbital ecchymosis Neck: C-collar placed upon arrival, no midline tenderness, supple Lungs & Thorax: No respiratory distress, equal chest rise and fall Abdomen: Soft, no tenderness; pelvis stable and nontender Skin: Warm, dry, forehead and lip contusion as above Extremities: BLE stable and nontender, hip stable and nontender, left elbow with obvious deformity, radial pulses +2 bilaterally, sensation intact to bilateral hands, pain on palpation of left elbow with swelling and deformity Neurologic: Alert and oriented X 2, confused to name of president, normal motor function, normal sensory function, no focal deficits noted Psychologic: Affect anxious (VINCENT CORADO DO) EKG: EKG: [] (VINCENT CORADO DO) Radiology/Procedures: Radiology/Procedures: PROCEDURE: CT HEAD AND CERVICAL SPINE WO CT scan of the head without contrast 12/08/2020 Clinical History: Altered mental status. Head injury. Technique: Unenhanced, contiguous, 5 mm axial sections were obtained through the head. One or more of the following individualized dose reduction techniques were utilized for this study: 1. Automated exposure control. 2. Adjustment of the mA and/or kV according to patient size. 3. Use of iterative reconstruction technique. Findings: Comparison study is dated 12/08/2020. There is generalized parenchymal atrophy. Areas of decreased attenuation are seen within the periventricular and subcortical white matter of both cerebral hemispheres consistent with areas of small vessel ischemic disease. An acute subdural hematoma seen within the anterior interhemispheric fissure which measures 3 mm in thickness. There is no significant mass effect. No acute parenchymal abnormality is seen. No skull fracture is seen. Impression: Small acute subdural hematoma seen within the anterior interhemispheric fissure without significant mass effect. This finding was discussed with Dr. Corado. CT scan of the cervical spine without contrast 12/08/2020 Clinical history: Fall with neck injury. Technique: Unenhanced, contiguous, 0.625 mm axial sections were obtained through the cervical spine. Axial, coronal and sagittal reconstructed images were obtained. One or more of the following individualized dose reduction techniques were utilized for this study: 1. Automated exposure control. 2. Adjustment of the mA and/or kV according to patient size. 3. Use of iterative reconstruction technique. Findings: Sagittal and coronal reconstructed images demonstrate straightening of the normal cervical lordosis. Degenerative changes consisting of disc space narrowing, vertebral endplate sclerosis and mild anterior and posterior vertebral body osteophyte formation are seen involving the T6-7 disc . No fracture or subluxation cervical vertebrae seen. Degenerative changes are see n involving the uncovertebral and facet joints throughout the cervical disc spaces. Atelectatic calcifications in the region carotid bifurcations. Impression: No fracture or subluxation of the cervical vertebra is identified. Electronically signed by: Dio Tejeda MD (12/08/2020 6:00 PM) [id number] PROCEDURE: CT MAXILLOFACIAL WO CONTRAST CT scan of the facial bones without contrast 12/08/2020 CLINICAL HISTORY: Fall with facial injury. TECHNIQUE: Unenhanced, contiguous, 0.625 mm axial sections were obtained through the facial bones and orbits. 3 mm reconstructed sagittal, axial and coronal images were obtained. One or more of the following individualized dose reduction techniques were utilized for this study: 1. Automated exposure control. 2. Adjustment of the mA and/or kV according to patient size. 3. Use of iterative reconstruction technique. FINDINGS: No facial bone fracture is seen. Both orbits are intact. The paranasal sinuses are essentially clear. There is a moderate right mastoid effusion. IMPRESSION: No facial bone or orbital fracture is seen. Electronically signed by: Dio Tejeda MD (12/08/2020 6:05 PM) [id number] PROCEDURE: PORTABLE CHEST 1V AP chest. HISTORY: Syncope AP view was taken of the chest. There is a shoulder prosthesis on each side. Lungs are free of infiltrates. Heart is normal in size. The hand partially obscures the left lung base. There is no effusion. IMPRESSION: 1. No acute chest disease. Electronically signed by: Brian Romero MD (12/08/2020 6:10 PM) [facility] PROCEDURE: ELBOW LEFT 3V Left elbow one view. HISTORY: Syncope, fall Single view was taken of the left elbow. There is an angulated displaced fracture of the distal humerus. The elbow is incompletely evaluated. There is a shoulder prosthesis on the left. IMPRESSION: 1. Fracture distal humerus. Electronically signed by: Brian Romero MD (12/08/2020 6:09 PM) [facility] PROCEDURE: PELVIS Pelvis one view. HISTORY: Syncope, fall Single view was taken of the pelvis. Pelvis is intact without acute osseous abnormality. Patient's had previous laminectomy and fusion of the lower lumbar spine. There is a hip prosthesis on each side without change from an old study. IMPRESSION: 1. No acute pelvic fracture noted. Electronically signed by: Brian Romero MD (12/08/2020 6:08 PM) [facility] (VINCENT CORADO DO) Course & Med Decision Making: Course & Med Decision Making Pertinent Labs and Imaging studies reviewed. (See chart for details) Patient presents with report of syncopal episode with facial trauma and altered mental status. Patient also with left elbow injury. Trauma alert initiated. C-collar placed upon patient's arrival to the ER. Patient sent immediately to CT imaging for head/maxillofacial/neck. CT head with small midline subdural hematoma. CT cervical and maxiofacial without acute process. Discussed case with Dr. Liu (Neurosurgery) who is in agreement with c onsultation and requests ICU admission with repeat CT head in AM. Left elbow fracture with distal humerus fracture. Splint ordered. Labs obtained and pending. EKG pending. Sign out given to Dr. Frye for further evaluation and final disposition. Dis cussed current findings and plan with patient, who acknowledges understanding and agreement. (VINCENT CORADO DO) Course & Med Decision Making Assumed care of patient from Dr. Corado. At checkout patient was pending CT resul ts and lab results. Lab does not show a significant reason why the patient had a syncopal episode today. CT did show a subarachnoid hemorrhage which was discussed with Dr. Liu. X-rays show a humerus fracture. Patient is neurovascularly intact. She was placed in a sling. She was given antibiotics for fractured tooth. Consult was placed for orthopedic surgery. Consult was placed for trauma surgery as patient was activated as trauma upon arrival. Tetanus shot was updated. It was also found that the patient has a distended abdomen and is complaining of abdominal pain. A CT abdomen pelvis was ordered to rule out any additional pathology. Patient was admitted to the hospitalist. (JANEE FRYE MD) Dragon Disclaimer: Dragon Disclaimer: This electronic medical record was generated, in whole or in part, using a voice recognition dictation system. (VINCENT CORADO DO) Departure Departure Impression: Primary Impression: Syncope Qualified Codes: R55 - Syncope and collapse Additional Impressions: Head contusion Qualified Codes: S00.03XA - Contusion of scalp, initial encounter Subdural hematoma Closed left humeral fracture Qualified Codes: S42.492A - Other displaced fracture of lower end of left humerus, initial encounter for closed fracture Tooth fracture Qualified Codes: S02.5XXB - Fracture of tooth (traumatic), initial encounter for open fracture Disposition: ADMITTED INPT THIS HOSP Condition: GUARDED Referrals: RANDAL SINGH (PCP) Critical Care Time Critical care time was 30 minutes which includes time at bedside, spent in discussion of patient's care with specialists and/or family members, with interpretation of laboratory and/or radiological studies and is exclusive of procedures. (VINCENT CORADO DO) VINCENT CORADO DO Dec 08, 2020 17:30 JANEE FRYE MD Dec 08, 2020 19:34
[2020-12-08] MEDS ORDERED: fentaNYL PF VIAL 100 MCG/2 ML VIAL IV ONE (17:45)
[2020-12-08 17:46] LABS: BASO # 0.1 x10^3/uL (0.0-0.2); BASO % 1 % (0-3); EOS # 0.1 x10^3/uL (0.0-0.7); EOS % 2 % (0-3); HEMATOCRIT 41.8 % (36.0-47.0); LYMPH # 2.6 x10^3/uL (1.0-4.8); LYMPH % 30 % (24-48); MEAN CORPUSCULAR HEMOGLOBIN 30 pg (25-35); MEAN CORPUSCULAR HGB CONC 34 g/dL (31-37); MEAN CORPUSCULAR VOLUME 91 fL (79-100); MONO # 0.5 x10^3/uL (0.0-1.1); MONO % 6 % (0-9); NEUT # 5.5 x10^3/uL (1.8-7.7); NEUT % 62 % (31-73); PLATELET COUNT 247 x10^3/uL (140-400); RED BLOOD COUNT 4.62 x10^6/uL (3.50-5.40); RED CELL DISTRIBUTION WIDTH 14.3 % (11.5-14.5); WHITE BLOOD COUNT 8.8 x10^3/uL (4.0-11.0)
[2020-12-08 17:59] LABS: CALCIUM 9.6 mg/dL (8.5-10.1); CREATININE 0.9 mg/dL (0.6-1.0); GFR 59.8; POTASSIUM 3.6 mmol/L (3.5-5.1)
[2020-12-08 18:01] LABS: PROTHROMBIN TIME PATIENT 12.5 SEC (11.7-14.0)
[2020-12-08 18:04] LABS: ALBUMIN/GLOBULIN RATIO 1.1 (1.0-1.7); MAGNESIUM 2.2 mg/dL (1.8-2.4); TOTAL BILIRUBIN 0.7 mg/dL (0.2-1.0); TOTAL PROTEIN 7.5 g/dL (6.4-8.2)
--- NOTE | 2020-12-08 18:11 | RAD ---
CT scan of the facial bones without contrast 12/08/2020 CLINICAL HISTORY: Fall with facial injury. TECHNIQUE: Unenhanced, contiguous, 0.625 mm axial sections were obtained through the facial bones and orbits. 3 mm reconstructed sagittal, axial and coronal images were obtained. One or more of the following individualized dose reduction techniques were utilized for this study: 1. Automated exposure control. 2. Adjustment of the mA and/or kV according to patient size. 3. Use of iterative reconstruction technique. FINDINGS: No facial bone fracture is seen. Both orbits are intact. The paranasal sinuses are essentia lly clear. There is a moderate right mastoid effusion. IMPRESSION: No facial bone or orbital fracture is seen. Electronically signed by: Dio Tejeda MD (12/08/2020 6:05 PM) [id number]
--- NOTE | 2020-12-08 18:11 | RAD ---
Pelvis one view. HISTORY: Syncope, fall Single view was taken of the pelvis. Pelvis is intact without acute osseous abnormality. Patient's grayson d previous laminectomy and fusion of the lower lumbar spine. There is a hip prosthesis on each side w ithout change from an old study. IMPRESSION: 1. No acute pelvic fracture noted. Electronically signed by: Brian Romero MD (12/08/2020 6:08 PM) [facility]
--- NOTE | 2020-12-08 18:11 | RAD ---
CT scan of the head without contrast 12/08/2020 Clinical History: Altered mental status. Head injury. Technique: Unenhanced, contiguous, 5 mm axial sections were obtained through the head. One or more of the following individualized dose reduction techniques were utilized for this study: 1. Automated exposure control. 2. Adjustment of the mA and/or kV according to patient size. 3. Use of iterative reconstruction technique. Findings: Comparison study is dated 12/08/2020. There is generalized parenchymal atrophy. Areas of decreased attenuation are seen within the perivent ricular and subcortical white matter of both cerebral hemispheres consistent with areas of small vess el ischemic disease. An acute subdural hematoma seen within the anterior interhemispheric fissure whi ch measures 3 mm in thickness. There is no significant mass effect. No acute parenchymal abnormality is seen. No skull fracture is seen. Impression: Small acute subdural hematoma seen within the anterior interhemispheric fissure without s ignificant mass effect. This finding was discussed with Dr. Thorne. CT scan of the cervical spine without contrast 12/08/2020 Clinical history: Fall with neck injury. Technique: Unenhanced, contiguous, 0.625 mm axial sections were obtained through the cervical spine. Axial, coronal and sagittal reconstructed images were obtained. One or more of the following individualized dose reduction techniques were utilized for this study: 1. Automated exposure control. 2. Adjustment of the mA and/or kV according to patient size. 3. Use of iterative reconstruction technique. Findings: Sagittal and coronal reconstructed images demonstrate straightening of the normal cervical lordosis. Degenerative changes consisting of disc space narrowing, vertebral endplate sclerosis and m ild anterior and posterior vertebral body osteophyte formation are seen involving the T6-7 disc . No fracture or subluxation cervical vertebrae seen. Degenerative changes are seen involving the uncov ertebral and facet joints throughout the cervical disc spaces. Atelectatic calcifications in the nash on carotid bifurcations. Impression: No fracture or subluxation of the cervical vertebra is identified. Electronically signed by: Dio Tejeda MD (12/08/2020 6:00 PM) [id number]
--- NOTE | 2020-12-08 18:12 | RAD ---
Left elbow one view. HISTORY: Syncope, fall Single view was taken of the left elbow. There is an angulated displaced fracture of the distal humer us. The elbow is incompletely evaluated. There is a shoulder prosthesis on the left. IMPRESSION: 1. Fracture distal humerus. Electronically signed by: Brian Romero MD (12/08/2020 6:09 PM) [facility]
--- NOTE | 2020-12-08 18:13 | RAD ---
AP chest. HISTORY: Syncope AP view was taken of the chest. There is a shoulder prosthesis on each side. Lungs are free of infilt rates. Heart is normal in size. The hand partially obscures the left lung base. There is no effusion. IMPRESSION: 1. No acute chest disease. Electronically signed by: Brian Romero MD (12/08/2020 6:10 PM) [facility]
[2020-12-08] MEDS ORDERED: PIPERACILLIN/TAZOBACTAM 3.375 GM in IV NORMAL SALINE 50ML 50 ML IV ONE (18:45)
[2020-12-08] MEDS ORDERED: IV NORMAL SALINE 500ML BAG 500 ML IV ONE (18:45)
[2020-12-08] MEDS ORDERED: CALCIUM CARBONATE 500 MG TAB.CHEW PO PRN (19:15)
[2020-12-08] MEDS ORDERED: 0.9 % SODIUM CHLORIDE 10 ML DISP.SYRIN. IV PRN (19:15)
[2020-12-08] MEDS ORDERED: ONDANSETRON PF 4 MG/2 ML VIAL. IVP PRN (19:15)
[2020-12-08] MEDS ORDERED: LACTULOSE 20 GM/30 ML SOLUTION. PO PRN (19:15)
[2020-12-08] MEDS ORDERED: BISACODYL 10 MG SUPP.RECT. PR PRN (19:15)
[2020-12-08] MEDS ORDERED: DIPH,PERTUSS(ACELL),TET VAC/PF 0.5 ML SYRINGE. VAX IM ONE (19:30)
[2020-12-08] MEDS: IV NORMAL SALINE 1000ML BAG 1,000 ML IV SCH (19:39)
[2020-12-08 20:02] LABS: BILIRUBIN,URINE NEGATIVE (NEG); CLARITY,URINE CLEAR; COLOR,URINE YELLOW; NITRITE,URINE NEGATIVE (NEG); PROTEIN,URINE 100 mg/dL (NEG-TRACE); UROBILINOGEN,URINE 0.2 mg/dL (0.2 mg/dL)
[2020-12-08 20:11] LABS: AMORPHOUS SEDIMENT,UR PRESENT /HPF; BACTERIA,URINE FEW /HPF (0-FEW); RBC,URINE 0 /HPF (0-2)
[2020-12-08] MEDS ORDERED: HYDROmorphone 2 MG/ML VIAL IVP PRN (20:15)
[2020-12-08] MEDS: ACETAMINOPHEN 500 MG TABLET PO SCH (21:00)
[2020-12-08] MEDS: DOCUSATE SODIUM 100 MG CAPSULE. PO SCH (21:00)
[2020-12-08] MEDS: ATORVASTATIN CALCIUM 20 MG TABLET PO SCH (21:00)
--- NOTE | 2020-12-08 21:01 | RAD ---
CT abdomen pelvis without contrast. HISTORY: Abdominal pain, distention CT scan of the abdomen pelvis was done without contrast. There is mild atelectasis in the lung bases without other infiltrates. There is no pleural effusion. A focal liver lesion is not identified. The patient's had a cholecystectomy. Spleen and adrenal glands are normal. Pancreas is normal. There is n o mass or hydronephrosis in the left kidney. There is mild right hydronephrosis. Unfortunately there is artifact in the pelvis and I cannot evaluate evaluate for a distal ureteral calculus. The artifact is off the hip prosthesis on each side which obscures portions of the bladder. There is increased st ool in the rectum. There is diverticulosis of the colon without definite diverticulitis but portions of the rectosigmoid colon are obscured. There is no small bowel obstruction. Appendix is normal. Malu ent's had previous lumbar fusion. IMPRESSION: 1. Right hydronephrosis. 2. Distal ureter cannot be evaluated. 3. Diverticulosis. 4. Increased stool at the rectum. 5. No small bowel obstruction. PQRS Compliance Statement: One or more of the following individualized dose reduction techniques were utilized for this examinat ion: 1. Automated exposure control 2. Adjustment of the mA and/or kV according to patient size 3. Use of iterative reconstruction technique Electronically signed by: Brian Romero MD (12/08/2020 8:59 PM) [facility]
[2020-12-08 21:30] VITALS: BP 175/70
[2020-12-08 21:45] VITALS: BP 178/91
[2020-12-08 22:00] VITALS: BP 179/93
[2020-12-08 22:15] VITALS: BP 163/84
[2020-12-08 23:00] VITALS: BP 174/83
[2020-12-08] MEDS ORDERED: LABETALOL 20 MG/4 ML DISP.SYRIN. IVP PRN (23:00)
[2020-12-08] MEDS: fentaNYL PF VIAL 100 MCG/2 ML VIAL IVP PRN (23:56)
[2020-12-09] VITALS (14 sets, daily range): BP systolic 117–175; BP diastolic 56–91
[2020-12-09] MEDS: IV NORMAL SALINE 1000ML BAG 1,000 ML IV SCH ×2 (04:32→13:13)
[2020-12-09 05:37] LABS: CALCIUM 8.3 mg/dL (8.5-10.1); CREATININE 0.7 mg/dL (0.6-1.0); GFR 79.9; POTASSIUM 3.9 mmol/L (3.5-5.1)
[2020-12-09 05:47] LABS: BASO % 1 % (0-3); EOS % 0 % (0-3); HEMOGLOBIN 11.2 g/dL (12.0-15.5); LYMPH # 1.4 x10^3/uL (1.0-4.8); LYMPH % 20 % (24-48); MEAN CORPUSCULAR HEMOGLOBIN 30 pg (25-35); MEAN CORPUSCULAR HGB CONC 33 g/dL (31-37); MEAN CORPUSCULAR VOLUME 91 fL (79-100); MONO # 0.5 x10^3/uL (0.0-1.1); MONO % 8 % (0-9); NEUT # 5.1 x10^3/uL (1.8-7.7); NEUT % 72 % (31-73); PLATELET COUNT 195 x10^3/uL (140-400); RED BLOOD COUNT 3.73 x10^6/uL (3.50-5.40); RED CELL DISTRIBUTION WIDTH 14.5 % (11.5-14.5); WHITE BLOOD COUNT 7.1 x10^3/uL (4.0-11.0)
[2020-12-09] MEDS: LEVOTHYROXINE 112 MCG TABLET PO SCH (06:11)
[2020-12-09] MEDS: PANTOPRAZOLE 40 MG TABLET.DR. PO SCH (07:30)
--- NOTE | 2020-12-09 07:36 | PDOC1 ---
History and Physical Date of Admission Date of Admission DATE: 12/09/20 TIME: 06:42 Identification/Chief Complaint Chief Complaint Fall Source Source: Chart review, Patient History of Present Illness History of Present Illness Patient is a 85-year-old female who presents to the ER via EMS for evaluation after having reported syncopal episode at home while trying to retrieve her mail. 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 She has a history of similar symptoms 1 week prior when she was performing a similar motion in her house. She is complaining of associated left elbow pain and pain secondary to broken front tooth. She denies any blood thinners. C-collar placed upon arrival in the ER. CT head was obtained showing small acute subdural hematoma, and x-ray left elbow showed fracture distal humerus. Will admit patient for further medical management with neurosurgery consultation. Past Medical History Cardiovascular: HTN, Hyperlipidemia Musculoskeletal: low back pain, Osteoarthritis Endocrine: Hypothyroidism Past Surgical History Past Surgical History: Cholecystectomy, Total hip replacement, Hysterectomy, Other Family History Family History: Diabetes Social History Smoke: No ALCOHOL: rare Drugs: None Current Problem List Problem List Problems Medical Problems: (1) Closed left humeral fracture Status: Acute (2) Head contusion Status: Acute (3) Subdural hematoma Status: Acute (4) Syncope Status: Acute (5) Tooth fracture Status: Acute Current Medications Current Medications Current Medications Sodium Chloride 1,000 ml @ 1,000 mls/hr 1X ONCE IV Last administered on 12/08/20at 17:48; Start 12/08/20 at 17:15; Stop 12/08/20 at 18:14; Status DC Neomycin/ Polymyxin/ Bacitracin (Triple Antibiotic Ointment) 1 pkt 1X ONCE TP Last administered on 12/08/20at 17:48; Start 12/08/20 at 17:15; Stop 12/08/20 at 17:17; Status DC Fentanyl Citrate (Fentanyl 2ml Vial) 50 mcg 1X ONCE IV Last administered on 12/08/20at 17:50; Start 12/08/20 at 17:45; Stop 12/08/20 at 17:50; Status DC Piperacillin Sod/ Tazobactam Sod 3.375 gm/Sodium Chloride 50 ml @ 100 mls/hr 1X ONCE IV Last administered on 12/08/20at 19:39; Start 12/08/20 at 18:45; Stop 12/08/20 at 19:14; Status DC Sodium Chloride 500 ml @ 500 mls/hr 1X ONCE IV Last administered on 12/08/20at 19:40; Start 12/08/20 at 18:45; Stop 12/08/20 at 19:44; Status DC Lorazepam (Ativan Inj) 0.5 mg PRN Q6HRS PRN IVP ANXIETY / AGITATION Last administered on 12/08/20at 23:57; Start 12/08/20 at 19:15 Ondansetron HCl (Zofran) 4 mg PRN Q6HRS PRN IVP NAUSEA/VOMITING Last administered on 12/08/20at 21:37; Start 12/08/20 at 19:15 Calcium Carbonate/ Glycine (Tums) 500 mg PRN Q3HRS PRN PO HEARTBURN / GAS; Start 12/08/20 at 19:15 Info (Icu Electrolyte Protocol) 1 ea DAILY MC ; Start 12/09/20 at 09:00 Sodium Chloride (Normal Saline Flush) 3 ml QSHIFT PRN IV AFTER MEDS AND BLOOD DRAWS; Start 12/08/20 at 19:15 Lactulose (Lactulose) 20 gm PRN Q12HR PRN PO CONSTIPATION; Start 12/08/20 at 19:15 Bisacodyl (Dulcolax Supp) 10 [address]N [address] CONSTIPATION; Start 12/08/20 at 19:15 Acetaminophen (Tylenol) 500 mg TID PO ; Start 12/08/20 at 21:00 Atorvastatin Calcium (Lipitor) 20 mg QHS PO ; Start 12/08/20 at 21:00 Docusate Sodium (Colace) 100 mg BID PO ; Start 12/08/20 at 21:00 Acetaminophen/ Hydrocodone Bitart (Lortab 10/325) 1 tab PRN TID PRN PO SEVERE PAIN; Start 12/08/20 at 19:15 Acetaminophen/ Hydrocodone Bitart (Lortab 5/325) 1 tab PRN Q6HRS PRN PO MODERATE PAIN; Start 12/08/20 at 19:15 Levothyroxine Sodium (Synthroid) 112 mcg DAILY06 PO Last administered on 12/09/20at 06:11; Start 12/09/20 at 06:00 Potassium Chloride (Klor-Con) 10 meq DAILY PO ; Start 12/09/20 at 09:00 Triamterene/HCTZ (Maxzide 37.5/ 25mg) 1 tab DAILY PO ; Start 12/09/20 at 09:00 Pantoprazole Sodium (Protonix) 40 mg DAILYAC PO ; Start 12/09/20 at 07:30 Sodium Chloride 1,000 ml @ 125 mls/hr Q8H IV Last administered on 12/09/20at 04:32; Start 12/08/20 at 19:30; Stop 12/09/20 at 19:29 Diphtheria/ Tetanus/Acell Pertussis (ADACEL TDap SYRINGE) 0.5 ml ONCE ONCE VAX IM Last administered on 12/08/20at 20:52; Start 12/08/20 at 19:30; Stop 12/08/20 at 19:57; Status DC Hydromorphone HCl (Dilaudid) 1 mg PRN Q3HRS PRN IVP SEVERE PAIN Last administered on 12/08/20at 20:57; Start 12/08/20 at 20:15; Stop 12/08/20 at 23:01; Status DC Alprazolam (Xanax) 0.5 mg PRN Q4HRS PRN PO ANXIETY; Start 12/08/20 at 20:15 Fentanyl Citrate (Fentanyl 2ml Vial) 25 mcg PRN Q3HRS PRN IVP PAIN Last administered on 12/08/20at 23:56; Start 12/08/20 at 23:00 Labetalol HCl (Normodyne Iv Push) 10 mg PRN Q4HRS PRN IVP HYPERTENSION Q4HRS W/A; Start 12/08/20 at 23:00 Active Scripts Active [place] 5-325 Tablet (Acetaminophen/Hydrocodone Bitart) 1 Each Tablet 1 Tab PO PRN Q6HRS PRN Colace (Docusate Sodium) 100 Mg Capsule 100 Mg PO BID Reported Acetaminophen 500 Mg Tablet 1 Tab PO TID Levothyroxine Sodium 112 Mcg Tablet 1 Tab PO DAILY Omeprazole 20 Mg Capsule.dr 1 Cap PO DAILY Hydrocodone-Apap 10-325 (Hydrocodone Bit/Acetaminophen) 1 Each Tablet 5 Mg PO TID PRN Potassium Chloride (Potassium Chloride) 10 Meq Capsule.er 10 Meq PO DAILY Estropipate 1.5 Mg Tablet 1.25 Mg PO DAILY Lipitor (Atorvastatin Calcium) 20 Mg Tablet 1 Tab PO DAILY Triamterene-Hctz 37.5-25 Mg Tb (Triamterene/Hydrochlorothiazid) 1 Each Tablet 1 Tab PO DAILY Aspir 81 (Aspirin) 81 Mg Tablet.dr 1 Tab PO DAILY Allergies Allergies: Coded Allergies: albumin colloid, human (Verified Allergy, Intermediate, 05/13/17) hydromorphone (Verified Allergy, Intermediate, Unknown, 05/12/17) morphine (Verified Allergy, Intermediate, rash, grayson, 06/13/19) nitrofurantoin (Verified Allergy, Intermediate, 05/12/17) ROS Review of System GENERAL: No history of weight change, weakness or fevers. SKIN: No bruising, hair changes or rashes. EYES: No blurred, double or loss of vision. NOSE AND THROAT: No history of nosebleeds, hoarseness or sore throat. HEART: Denies chest pain, denies palpitations. LUNGS: Denies cough, hemoptysis, wheezing or shortness of breath. GASTROINTESTINAL: Denies nausea, vomiting, abdominal pain. GENITOURINARY: Denies dysuria, frequency, urgency, hematuria. NEUROLOGIC: Headache. Denies history of numbness, tingling, tremor or weakness. PSYCHIATRIC: Denies anxiety, denies depression. ENDOCRINE: No history of heat or cold intolerance, polyuria or polydipsia. EXTREMITIES: Left elbow pain. Physical Exam Physical Exam General: Alert, Oriented X2, Cooperative, mild distress HEENT: Small left scalp contusion, right maxillary incisor fracture, left lower lip contusion, PERRLA, EOMI Lungs: Clear to auscultation, Normal air movement Heart: RRR, no murmurs Cardiovascular: S1, S2 Abdomen: Normal bowel sounds, Soft, distended, no tenderness Extremities: Tenderness to left distal humerus with swelling and deformity. No clubbing, No cyanosis Skin: No rashes, No significant lesion Neuro: Normal speech, Normal tone, Sensation intact Psych/Mental Status: Mental status NL, Mood NL Vitals Vitals Vital Signs Date Time Temp Pulse Resp B/P (MAP) Pulse Ox O2 Delivery O2 Flow Rate FiO2 12/09/20 06:19 74 22 155/67 (96) 100 Room Air 12/09/20 04:00 98.6 98.6 Labs Labs Laboratory Tests Test 12/08/20 17:38 12/08/20 17:46 12/08/20 19:19 12/08/20 19:54 White Blood Count 8.8 x10^3/uL (4.0-11.0) Red Blood Count 4.62 x10^6/uL (3.50-5.40) Hemoglobin 14.0 g/dL (12.0-15.5) Hematocrit 41.8 % (36.0-47.0) Mean Corpuscular Volume 91 fL (79-100) Mean Corpuscular Hemoglobin 30 pg (25-35) Mean Corpuscular Hemoglobin Concent 34 g/dL (31-37) Red Cell Distribution Width 14.3 % (11.5-14.5) Platelet Count 247 x10^3/uL (140-400) Neutrophils (%) (Auto) 62 % (31-73) Lymphocytes (%) (Auto) 30 % (24-48) Monocytes (%) (Auto) 6 % (0-9) Eosinophils (%) (Auto) 2 % (0-3) Basophils (%) (Auto) 1 % (0-3) Neutrophils # (Auto) 5.5 x10^3/uL (1.8-7.7) Lymphocytes # (Auto) 2.6 x10^3/uL (1.0-4.8) Monocytes # (Auto) 0.5 x10^3/uL (0.0-1.1) Eosinophils # (Auto) 0.1 x10^3/uL (0.0-0.7) Basophils # (Auto) 0.1 x10^3/uL (0.0-0.2) Prothrombin Time 12.5 SEC (11.7-14.0) Prothromb Time International Ratio 1.0 (0.8-1.1) Activated Partial Thromboplast Time 27 SEC (24-38) Sodium Level 139 mmol/L (136-145) Potassium Level 3.6 mmol/L (3.5-5.1) Chloride Level 100 mmol/L (98-107) Carbon Dioxide Level 29 mmol/L (21-32) Anion Gap 10 (6-14) Blood Urea Nitrogen 30 mg/dL (7-20) Creatinine 0.9 mg/dL (0.6-1.0) Estimated GFR (Cockcroft-Gault) 59.8 BUN/Creatinine Ratio 33 (6-20) Glucose Level 114 mg/dL (70-99) Lactic Acid Level 1.6 mmol/L (0.4-2.0) Calcium Level 9.6 mg/dL (8.5-10.1) Magnesium Level 2.2 mg/dL (1.8-2.4) Total Bilirubin 0.7 mg/dL (0.2-1.0) Aspartate Amino Transf (AST/SGOT) 30 U/L (15-37) Alanine Aminotransferase (ALT/SGPT) 36 U/L (14-59) Alkaline Phosphatase 103 U/L (46-116) Ammonia 14 mcmol/L (11-34) Creatine Kinase 187 U/L (26-192) Creatine Kinase MB (Mass) 4.9 ng/mL (0.0-3.6) Creatine Kinase MB Relative Index 2.6 % (0-4) Troponin I Quantitative < 0.017 ng/mL (0.000-0.055) GO-Mkj-[id number]-Type Natriuretic Peptide 86 pg/mL (0-449) Total Protein 7.5 g/dL (6.4-8.2) Albumin 4.0 g/dL (3.4-5.0) Albumin/Globulin Ratio 1.1 (1.0-1.7) Glucose (Fingerstick) 118 mg/dL (70-99) SARS-CoV-2 Antigen (Rapid) Negative (NEGATIVE) Urine Collection Type Unknown Urine Color Yellow Urine Clarity Clear Urine pH 8.0 (<5.0-8.0) Urine Specific [place] 1.010 (1.000-1.030) Urine Protein 100 mg/dL (NEG-TRACE) Urine Glucose (UA) Negative mg/dL (NEG) Urine Ketones (Stick) Negative mg/dL (NEG) Urine Blood Trace (NEG) Urine Nitrite Negative (NEG) Urine Bilirubin Negative (NEG) Urine Urobilinogen Dipstick 0.2 mg/dL (0.2 mg/dL) Urine Leukocyte Esterase Negative (NEG) Urine RBC 0 /HPF (0-2) Urine WBC 1-4 /HPF (0-4) Urine Squamous Epithelial Cells Few /LPF Urine Amorphous Sediment Present /HPF Urine Bacteria Few /HPF (0-FEW) Test 12/09/20 05:00 White Blood Count 7.1 x10^3/uL (4.0-11.0) Red Blood Count 3.73 x10^6/uL (3.50-5.40) Hemoglobin 11.2 g/dL (12.0-15.5) Hematocrit 34.0 % (36.0-47.0) Mean Corpuscular Volume 91 fL (79-100) Mean Corpuscular Hemoglobin 30 pg (25-35) Mean Corpuscular Hemoglobin Concent 33 g/dL (31-37) Red Cell Distribution Width 14.5 % (11.5-14.5) Platelet Count 195 x10^3/uL (140-400) Neutrophils (%) (Auto) 72 % (31-73) Lymphocytes (%) (Auto) 20 % (24-48) Monocytes (%) (Auto) 8 % (0-9) Eosinophils (%) (Auto) 0 % (0-3) Basophils (%) (Auto) 1 % (0-3) Neutrophils # (Auto) 5.1 x10^3/uL (1.8-7.7) Lymphocytes # (Auto) 1.4 x10^3/uL (1.0-4.8) Monocytes # (Auto) 0.5 x10^3/uL (0.0-1.1) Eosinophils # (Auto) 0.0 x10^3/uL (0.0-0.7) Basophils # (Auto) 0.0 x10^3/uL (0.0-0.2) Sodium Level 139 mmol/L (136-145) Potassium Level 3.9 mmol/L (3.5-5.1) Chloride Level 107 mmol/L (98-107) Carbon Dioxide Level 28 mmol/L (21-32) Anion Gap 4 (6-14) Blood Urea Nitrogen 19 mg/dL (7-20) Creatinine 0.7 mg/dL (0.6-1.0) Estimated GFR (Cockcroft-Gault) 79.9 Glucose Level 118 mg/dL (70-99) Calcium Level 8.3 mg/dL (8.5-10.1) Laboratory Tests Test 12/08/20 17:38 12/08/20 17:46 12/08/20 19:19 12/08/20 19:54 White Blood Count 8.8 x10^3/uL (4.0-11.0) Red Blood Count 4.62 x10^6/uL (3.50-5.40) Hemoglobin 14.0 g/dL (12.0-15.5) Hematocrit 41.8 % (36.0-47.0) Mean Corpuscular Volume 91 fL (79-100) Mean Corpuscular Hemoglobin 30 pg (25-35) Mean Corpuscular Hemoglobin Concent 34 g/dL (31-37) Red Cell Distribution Width 14.3 % (11.5-14.5) Platelet Count 247 x10^3/uL (140-400) Neutrophils (%) (Auto) 62 % (31-73) Lymphocytes (%) (Auto) 30 % (24-48) Monocytes (%) (Auto) 6 % (0-9) Eosinophils (%) (Auto) 2 % (0-3) Basophils (%) (Auto) 1 % (0-3) Neutrophils # (Auto) 5.5 x10^3/uL (1.8-7.7) Lymphocytes # (Auto) 2.6 x10^3/uL (1.0-4.8) Monocytes # (Auto) 0.5 x10^3/uL (0.0-1.1) Eosinophils # (Auto) 0.1 x10^3/uL (0.0-0.7) Basophils # (Auto) 0.1 x10^3/uL (0.0-0.2) Prothrombin Time 12.5 SEC (11.7-14.0) Prothromb Time International Ratio 1.0 (0.8-1.1) Activated Partial Thromboplast Time 27 SEC (24-38) Sodium Level 139 mmol/L (136-145) Potassium Level 3.6 mmol/L (3.5-5.1) Chloride Level 100 mmol/L (98-107) Carbon Dioxide Level 29 mmol/L (21-32) Anion Gap 10 (6-14) Blood Urea Nitrogen 30 mg/dL (7-20) Creatinine 0.9 mg/dL (0.6-1.0) Estimated GFR (Cockcroft-Gault) 59.8 BUN/Creatinine Ratio 33 (6-20) Glucose Level 114 mg/dL (70-99) Lactic Acid Level 1.6 mmol/L (0.4-2.0) Calcium Level 9.6 mg/dL (8.5-10.1) Magnesium Level 2.2 mg/dL (1.8-2.4) Total Bilirubin 0.7 mg/dL (0.2-1.0) Aspartate Amino Transf (AST/SGOT) 30 U/L (15-37) Alanine Aminotransferase (ALT/SGPT) 36 U/L (14-59) Alkaline Phosphatase 103 U/L (46-116) Ammonia 14 mcmol/L (11-34) Creatine Kinase 187 U/L (26-192) Creatine Kinase MB (Mass) 4.9 ng/mL (0.0-3.6) Creatine Kinase MB Relative Index 2.6 % (0-4) Troponin I Quantitative < 0.017 ng/mL (0.000-0.055) XK-Ewe-M-Type Natriuretic Peptide 86 pg/mL (0-449) Total Protein 7.5 g/dL (6.4-8.2) Albumin 4.0 g/dL (3.4-5.0) Albumin/Globulin Ratio 1.1 (1.0-1.7) Glucose (Fingerstick) 118 mg/dL (70-99) SARS-CoV-2 Antigen (Rapid) Negative (NEGATIVE) Urine Collection Type Unknown Urine Color Yellow Urine Clarity Clear Urine pH 8.0 (<5.0-8.0) Urine Specific [place] 1.010 (1.000-1.030) Urine Protein 100 mg/dL (NEG-TRACE) Urine Glucose (UA) Negative mg/dL (NEG) Urine Ketones (Stick) Negative mg/dL (NEG) Urine Blood Trace (NEG) Urine Nitrite Negative (NEG) Urine Bilirubin Negative (NEG) Urine Urobilinogen Dipstick 0.2 mg/dL (0.2 mg/dL) Urine Leukocyte Esterase Negative (NEG) Urine RBC 0 /HPF (0-2) Urine WBC 1-4 /HPF (0-4) Urine Squamous Epithelial Cells Few /LPF Urine Amorphous Sediment Present /HPF Urine Bacteria Few /HPF (0-FEW) Test 12/09/20 05:00 White Blood Count 7.1 x10^3/uL (4.0-11.0) Red Blood Count 3.73 x10^6/uL (3.50-5.40) Hemoglobin 11.2 g/dL (12.0-15.5) Hematocrit 34.0 % (36.0-47.0) Mean Corpuscular Volume 91 fL (79-100) Mean Corpuscular Hemoglobin 30 pg (25-35) Mean Corpuscular Hemoglobin Concent 33 g/dL (31-37) Red Cell Distribution Width 14.5 % (11.5-14.5) Platelet Count 195 x10^3/uL (140-400) Neutrophils (%) (Auto) 72 % (31-73) Lymphocytes (%) (Auto) 20 % (24-48) Monocytes (%) (Auto) 8 % (0-9) Eosinophils (%) (Auto) 0 % (0-3) Basophils (%) (Auto) 1 % (0-3) Neutrophils # (Auto) 5.1 x10^3/uL (1.8-7.7) Lymphocytes # (Auto) 1.4 x10^3/uL (1.0-4.8) Monocytes # (Auto) 0.5 x10^3/uL (0.0-1.1) Eosinophils # (Auto) 0.0 x10^3/uL (0.0-0.7) Basophils # (Auto) 0.0 x10^3/uL (0.0-0.2) Sodium Level 139 mmol/L (136-145) Potassium Level 3.9 mmol/L (3.5-5.1) Chloride Level 107 mmol/L (98-107) Carbon Dioxide Level 28 mmol/L (21-32) Anion Gap 4 (6-14) Blood Urea Nitrogen 19 mg/dL (7-20) Creatinine 0.7 mg/dL (0.6-1.0) Estimated GFR (Cockcroft-Gault) 79.9 Glucose Level 118 mg/dL (70-99) Calcium Level 8.3 mg/dL (8.5-10.1) Images Images Radiology/Procedures: PROCEDURE: CT HEAD AND CERVICAL SPINE WO CT scan of the head without contrast 12/08/2020 Clinical History: Altered mental status. Head injury. Technique: Unenhanced, contiguous, 5 mm axial sections were obtained through the head. One or more of the following individualized dose reduction techniques were utilized for this study: 1. Automated exposure control. 2. Adjustment of the mA and/or kV according to patient size. 3. Use of iterative reconstruction technique. Findings: Comparison study is dated 12/08/2020. There is generalized parenchymal atrophy. Areas of decreased attenuation are seen within the periventricular and subcortical white matter of both cerebral hemispheres consistent with areas of small vessel ischemic disease. An acute subdural hematoma seen within the anterior interhemispheric fissure which measures 3 mm in thickness. There is no significant mass effect. No acute parenchymal abnormality is seen. No skull fracture is seen. Impression: Small acute subdural hematoma seen within the anterior interhemispheric fissure without significant mass effect. This finding was discussed with Dr. Thorne. CT scan of the cervical spine without contrast 12/08/2020 Clinical history: Fall with neck injury. Technique: Unenhanced, contiguous, 0.625 mm axial sections were obtained through the cervical spine. Axial, coronal and sagittal reconstructed images were obtained. One or more of the following individualized dose reduction techniques were utilized for this study: 1. Automated exposure control. 2. Adjustment of the mA and/or kV according to patient size. 3. Use of iterative reconstruction technique. Findings: Sagittal and coronal reconstructed images demonstrate straightening of the normal cervical lordosis. Degenerative changes consisting of disc space narrowing, vertebral endplate sclerosis and mild anterior and posterior vertebral body osteophyte formation are seen involving the T6-7 disc . No fracture or subluxation cervical vertebrae seen. Degenerative changes are seen involving the uncovertebral and facet joints throughout the cervical disc spaces. Atelectatic calcifications in the region carotid bifurcations. Impression: No fracture or subluxation of the cervical vertebra is identified. Electronically signed by: Dio Tejeda MD (12/08/2020 6:00 PM) [id number] PROCEDURE: CT MAXILLOFACIAL WO CONTRAST CT scan of the facial bones without contrast 12/08/2020 CLINICAL HISTORY: Fall with facial injury. TECHNIQUE: Unenhanced, contiguous, 0.625 mm axial sections were obtained through the facial bones and orbits. 3 mm reconstructed sagittal, axial and coronal images were obtained. One or more of the following individualized dose reduction techniques were utilized for this study: 1. Automated exposure control. 2. Adjustment of the mA and/or kV according to patient size. 3. Use of iterative reconstruction technique. FINDINGS: No facial bone fracture is seen. Both orbits are intact. The paranasal sinuses are essentially clear. There is a moderate right mastoid effusion. IMPRESSION: No facial bone or orbital fracture is seen. Electronically signed by: Dio Tejeda MD (12/08/2020 6:05 PM) [id number] PROCEDURE: PORTABLE CHEST 1V AP chest. HISTORY: Syncope AP view was taken of the chest. There is a shoulder prosthesis on each side. Lungs are free of infiltrates. Heart is normal in size. The hand partially obscures the left lung base. There is no effusion. IMPRESSION: 1. No acute chest disease. Electronically signed by: Brian Romero MD (12/08/2020 6:10 PM) [facility] PROCEDURE: ELBOW LEFT 3V Left elbow one view. HISTORY: Syncope, fall Single view was taken of the left elbow. There is an angulated displaced fracture of the distal humerus. The elbow is incompletely evaluated. There is a shoulder prosthesis on the left. IMPRESSION: 1. Fracture distal humerus. Electronically signed by: Brian Romero MD (12/08/2020 6:09 PM) [facility] PROCEDURE: PELVIS Pelvis one view. HISTORY: Syncope, fall Single view was taken of the pelvis. Pelvis is intact without acute osseous abnormality. Patient's had previous laminectomy and fusion of the lower lumbar spine. There is a hip prosthesis on each side without change from an old study. IMPRESSION: 1. No acute pelvic fracture noted. Electronically signed by: Brian Romero MD (12/08/2020 6:08 PM) [facility] VTE Prophylaxis Ordered VTE Prophylaxis Devices: Yes VTE Pharmacological Prophylaxi: No Assessment/Plan Assessment/Plan Subdural hematoma Syncope Left distal humerus fracture Right hydronephrosis, mild Dehydration Hypertensive urgency Fractured maxillary incisor Plan: Patient placed in c-collar and admitted to ICU. Consultation to neurosurgery CT head obtained on admission read as small acute subdural hematoma without significant mass-effect. Repeat CT again shows mall subdural hematoma along the falx without change. This was discussed with neurosurgery with neurosurgery by patient's nurse, and she may transfer out of ICU today to [facility]. Possible orthostatic syncope versus vasovagal. Will obtain orthostatic vitals, echocardiogram, and consult cardiology. Consultation placed to orthopedic surgery for displaced left humerus fracture Consultation placed to trauma surgery as patient was activated as a trauma upon arrival Hypertensive urgency secondary to pain; pain management IV fluids She received antibiotics upon arrival for fractured tooth CT abdomen pelvis obtained in ER showed mild right hydronephrosis (unable to evaluate distal ureteral calculus secondary to artifact and pelvis), increased stool in the rectum, no small bowel obstruction PT/OT Resume home medications FEN - Cardiac diet PPX - SCDs FULL CODE Dispo - inpatient for above Justifications for Admission Other Justification Subarachnoid hemorrhage JAILENE GUTIERREZ MD Dec 09, 2020 07:36
--- NOTE | 2020-12-09 08:21 | RAD ---
CT brain without contrast. HISTORY: Follow-up subdural hematoma. CT scan of brain was done without contrast. There is a small subdural hematoma along the falx without change. There is no mass effect or shift of the midline. Ventricles are mildly dilated likely atroph y. An acute CVA is not identified. No new hemorrhage is noted. Sinuses are clear. A skull fracture is not identified. IMPRESSION: 1. Small subdural hematoma along the falx without change. 2. No new hemorrhage or other acute finding. PQRS Compliance Statement: One or more of the following individualized dose reduction techniques were utilized for this examinat ion: 1. Automated exposure control 2. Adjustment of the mA and/or kV according to patient size 3. Use of iterative reconstruction technique Electronically signed by: Brian Romero MD (12/09/2020 8:09 AM) [facility]
--- NOTE | 2020-12-09 08:30 | PDOC2 ---
CARDIOLOGY CONSULT NOTE DATE OF SERVICE: DATE: 12/09/20 TIME: 08:22 CHIEF COMPLAINT: Fall, syncope HPI: 85-year-old woman who apparently was in her usual state of health who unf ortunately had a fall and syncopal event when trying to go outside and retrieve her mail. This does not appear to be a mechanical fall. No clear prodromal symptoms such as nausea or pain leading to any vagal type issues. She does not have any prior history of syncope. She does not have any prior cardiovascular issues. Initial evaluation in the ER revealed no significant arrhythmias. She had a subdural hematoma and a distal humerus fracture and has been admitted for further evaluation. Upon initial arrival to the hospital patient was significantly hypertensive, it is unclear if this was related to pain, her acute confusion from the fall etc. EKG also was unremarkable. PMHX: 1. Hypertension 2. Dyslipidemia 3. Prior hip and back surgeries SOCHX: No alcohol, tobacco or illicit drug use FAMHX: Noncontributory CURRENT MEDS: Home medications include aspirin, atorvastatin, hydrochlorothiazide/triamterene, Synthroid Current medications in the hospital are labetalol IV as needed and atorvastatin ALLERGIES: Allergies Coded Allergies Type Severity Reaction Last Updated Verified albumin colloid, human Allergy Intermediate 05/13/17 Yes hydromorphone Allergy Intermediate Unknown 05/12/17 Yes morphine Allergy Intermediate rash, grayson 06/13/19 Yes nitrofurantoin Allergy Intermediate 05/12/17 Yes ROS: Negative for 10 out of 14 systems reviewed unless otherwise mentioned above in HPI. The patient specifically denied any preceding chest pain or exertional symptoms. PHYSICAL EXAM: Vital Signs/I&O: Vital Signs Date Time Temp Pulse Resp B/P (MAP) Pulse Ox O2 Delivery O2 Flow Rate FiO2 12/09/20 08:00 Room Air 12/09/20 08:00 99.9 85 12 136/81 (99) 97 99.9 I & O 12/08/20 12/08/20 12/09/20 15:00 23:00 07:00 Intake Total 1550 ml 847 ml Output Total 625 ml Balance 1550 ml 222 ml Physical Exam: The patient appeared well nourished and normally developed. Head exam is unremarkable. No scleral icterus or corneal arcus noted. Neck is without jugular venous distension, thyromegaly, or carotid bruits. Carotid upstrokes are brisk bilaterally. Lungs are clear to auscultation and percussion. Cardiac exam reveals the PMI to be normally sized and situated. Rhythm is regular. First and second heart sounds normal. No murmurs, rubs or gallops. Abdominal exam reveals normal bowel sounds, no masses, no organomegaly and no aortic enlargement. Extremities are nonedematous and both femoral and pedal pulses are normal. Msk: No traumua Neuro: No focal deficits DIAGNOSTIC TESTING: EKG reveals sinus rhythm with nonspecific ST-T wave changes. No obvious arrhythmias noted on telemetry No prior echocardiogram. Chest x-ray is unremarkable Head CT reveals stable subdural hematoma. No significant changes since yesterday Lab Pertinent labs including cardiac enzymes, BNP are within normal limits She does not have a UTI Potassium is slightly decreased at 3.6 but otherwise no significant pathology is noted. ASSESSMENT: 1. Syncope: Differential diagnosis includes arrhythmia, malignant hypertension versus mechanical fall and subsequent trauma. 2. Hypertension: Uncontrolled 3. New humerUS fracture and subdural hematoma At this present time I have lower suspicion for any significant ischemia leading to any arrhythmias: PLAN: 1. Her examination does not reveal any obvious structural cardiac abnormalities but at this time given her age and true syncopal episode it would be appropriate to rule out any structural heart disease with an echocardiogram. We will plan for this today or tomorrow. She would benefit from likely an implantable loop recorder for long-term monitoring of her rhythm should that be the source of her issues. Nonetheless, we will plan for blood pressure control but at this present time no obvious cardiovascular source of her syncope is noted. Thank you for this consultation. We will follow along closely. ELMIRA PATEL MD Dec 09, 2020 08:29
[2020-12-09] MEDS: POTASSIUM CHLORIDE 10 MEQ TABLET.ER. PO SCH (08:46)
[2020-12-09] MEDS: DOCUSATE SODIUM 100 MG CAPSULE. PO SCH ×2 (08:46→21:00)
[2020-12-09] MEDS: ACETAMINOPHEN 500 MG TABLET PO SCH ×3 (08:47→22:54)
[2020-12-09] MEDS: TRIAMTERENE/HCTZ 37.5/25MG TABLET. PO SCH (08:47)
[2020-12-09] MEDS ORDERED: ELECTROLYTE (ICU) PROTOCOL. MC SCH (09:00)
[2020-12-09] MEDS: fentaNYL PF VIAL 100 MCG/2 ML VIAL IVP PRN ×3 (10:22→22:58)
--- NOTE | 2020-12-09 11:51 | EKG ---
[facility] [address] [place] [address] Test Date: 2020-12-08 Test Time: 17:59:36 Pat Name: JANEY WAITE Department: Room: Gender: F Vendor Management Consultant: BARBIE : 1935 Requested By: VINCENT CORADO Order Number: [id number] Reading MD: Measurements Intervals [place] Rate: 90 P: 87 MO: 176 QRS: 49 QRSD: 80 T: -1 QT: 398 QTc: 491 Interpretive Statements SINUS RHYTHM NON-SPECIFIC ST/T CHANGES
[2020-12-09] MEDS ORDERED: ELECTROLYTE (NON-ICU) PROTOCOL. MC PRN (13:15)
--- NOTE | 2020-12-09 14:23 | PDOC2 ---
CONSULT Date of Consult Date of Consult DATE: 12/09/20 TIME: 14:21 Reason for Consult Reason for Consult: Left elbow humerus fracture Identification/Chief Complaint Chief Complaint Left elbow pain after a fall Source Source: Chart review, Patient History of Present Illness Reason for Visit: This 85-year-old woman is familiar to me from prior office visits. She was getting her mail, had her cane in one hand, put her mail in her mouth, and reached down to warp picker a crushed beer can which was littered on the ground. She fell forward and struck her face and the elbow, and was brought to the hospital with subdural hematoma, facial injury and contusion, and humerus fracture. She is familiar to me and has had bilateral shoulder reverse arthroplasties previously by other surgeons. Past Medical History Cardiovascular: HTN, Hyperlipidemia Musculoskeletal: low back pain, Osteoarthritis Endocrine: Hypothyroidism Past Surgical History Past Surgical History: Cholecystectomy, Total hip replacement, Hysterectomy, Other Family History Family History: Diabetes Social History No ALCOHOL: rare Drugs: None Lives: with Family Domestic Violence: Neg Current Problem List Problem List Problems Medical Problems: (1) Closed left humeral fracture Status: Acute (2) Head contusion Status: Acute (3) Subdural hematoma Status: Acute (4) Syncope Status: Acute (5) Tooth fracture Status: Acute Current Medications Current Medications Current Medications Sodium Chloride 1,000 ml @ 1,000 mls/hr 1X ONCE IV Last administered on 12/08/20at 17:48; Start 12/08/20 at 17:15; Stop 12/08/20 at 18:14; Status DC Neomycin/ Polymyxin/ Bacitracin (Triple Antibiotic Ointment) 1 pkt 1X ONCE TP Last administered on 12/08/20at 17:48; Start 12/08/20 at 17:15; Stop 12/08/20 at 17:17; Status DC Fentanyl Citrate (Fentanyl 2ml Vial) 50 mcg 1X ONCE IV Last administered on 12/08/20at 17:50; Start 12/08/20 at 17:45; Stop 12/08/20 at 17:50; Status DC Piperacillin Sod/ Tazobactam Sod 3.375 gm/Sodium Chloride 50 ml @ 100 mls/hr 1X ONCE IV Last administered on 12/08/20at 19:39; Start 12/08/20 at 18:45; Stop 12/08/20 at 19:14; Status DC Sodium Chloride 500 ml @ 500 mls/hr 1X ONCE IV Last administered on 12/08/20at 19:40; Start 12/08/20 at 18:45; Stop 12/08/20 at 19:44; Status DC Lorazepam (Ativan Inj) 0.5 mg PRN Q6HRS PRN IVP ANXIETY / AGITATION Last administered on 12/08/20at 23:57; Start 12/08/20 at 19:15 Ondansetron HCl (Zofran) 4 mg PRN Q6HRS PRN IVP NAUSEA/VOMITING Last administered on 12/08/20at 21:37; Start 12/08/20 at 19:15 Calcium Carbonate/ Glycine (Tums) 500 mg PRN Q3HRS PRN PO HEARTBURN / GAS; Start 12/08/20 at 19:15 Info (Icu Electrolyte Protocol) 1 ea DAILY MC ; Start 12/09/20 at 09:00; Stop 12/09/20 at 13:12; Status DC Sodium Chloride (Normal Saline Flush) 3 ml QSHIFT PRN IV AFTER MEDS AND BLOOD DRAWS; Start 12/08/20 at 19:15 Lactulose (Lactulose) 20 gm PRN Q12HR PRN PO CONSTIPATION; Start 12/08/20 at 19:15 Bisacodyl (Dulcolax Supp) 10 mg PRN DAILY PRN [place] CONSTIPATION; Start 12/08/20 at 19:15 Acetaminophen (Tylenol) 500 mg TID PO Last administered on 12/09/20at 13:12; Start 12/08/20 at 21:00 Atorvastatin Calcium (Lipitor) 20 mg QHS PO ; Start 12/08/20 at 21:00 Docusate Sodium (Colace) 100 mg BID PO ; Start 12/08/20 at 21:00 Acetaminophen/ Hydrocodone Bitart (Lortab 10/325) 1 tab PRN TID PRN PO SEVERE PAIN; Start 12/08/20 at 19:15 Acetaminophen/ Hydrocodone Bitart (Lortab 5/325) 1 tab PRN Q6HRS PRN PO MODERATE PAIN; Start 12/08/20 at 19:15 Levothyroxine Sodium (Synthroid) 112 mcg DAILY06 PO Last administered on 12/09/20at 06:11; Start 12/09/20 at 06:00 Potassium Chloride (Klor-Con) 10 meq DAILY PO ; Start 12/09/20 at 09:00 Triamterene/HCTZ (Maxzide 37.5/ 25mg) 1 tab DAILY PO ; Start 12/09/20 at 09:00 Pantoprazole Sodium (Protonix) 40 mg DAILYAC PO ; Start 12/09/20 at 07:30 Sodium Chloride 1,000 ml @ 125 mls/hr Q8H IV Last administered on 12/09/20at 13:13; Start 12/08/20 at 19:30; Stop 12/09/20 at 19:29 Diphtheria/ Tetanus/Acell Pertussis (ADACEL TDap SYRINGE) 0.5 ml ONCE ONCE VAX IM Last administered on 12/08/20at 20:52; Start 12/08/20 at 19:30; Stop 12/08/20 at 19:57; Status DC Hydromorphone HCl (Dilaudid) 1 mg PRN Q3HRS PRN IVP SEVERE PAIN Last administered on 12/08/20at 20:57; Start 12/08/20 at 20:15; Stop 12/08/20 at 23:01; Status DC Alprazolam (Xanax) 0.5 mg PRN Q4HRS PRN PO ANXIETY; Start 12/08/20 at 20:15 Fentanyl Citrate (Fentanyl 2ml Vial) 25 mcg PRN Q3HRS PRN IVP PAIN Last administered on 12/09/20at 13:20; Start 12/08/20 at 23:00 Labetalol HCl (Normodyne Iv Push) 10 mg PRN Q4HRS PRN IVP HYPERTENSION Q4HRS W/A; Start 12/08/20 at 23:00 Info (Non-Icu Electrolyte Protocol) 1 ea CONT PRN PRN MC SEE COMMENTS; Start 12/09/20 at 13:15 Active Scripts Active [place] 5-325 Tablet (Acetaminophen/Hydrocodone Bitart) 1 Each Tablet 1 Tab PO PRN Q6HRS PRN Colace (Docusate Sodium) 100 Mg Capsule 100 Mg PO BID Reported Acetaminophen 500 Mg Tablet 1 Tab PO TID Levothyroxine Sodium 112 Mcg Tablet 1 Tab PO DAILY Omeprazole 20 Mg Capsule. 1 Cap PO DAILY Hydrocodone-Apap 10-325 (Hydrocodone Bit/Acetaminophen) 1 Each Tablet 5 Mg PO TID PRN Potassium Chloride (Potassium Chloride) 10 Meq Capsule.er 10 Meq PO DAILY Estropipate 1.5 Mg Tablet 1.25 Mg PO DAILY Lipitor (Atorvastatin Calcium) 20 Mg Tablet 1 Tab PO DAILY Triamterene-Hctz 37.5-25 Mg Tb (Triamterene/Hydrochlorothiazid) 1 Each Tablet 1 Tab PO DAILY Aspir 81 (Aspirin) 81 Mg Tablet.dr 1 Tab PO DAILY Allergies Allergies: Coded Allergies: albumin colloid, human (Verified Allergy, Intermediate, 05/13/17) hydromorphone (Verified Allergy, Intermediate, Unknown, 05/12/17) morphine (Verified Allergy, Intermediate, rash, grayson, 06/13/19) nitrofurantoin (Verified Allergy, Intermediate, 05/12/17) ROS Review of System Constitutional: Denies fever or chills HENT: Denies nasal congestion or epistaxis Respiratory: Denies cough or shortness of breath Cardiovascular: Denies chest pain or palpitations GI: Denies abdominal pain, nausea, or vomiting : Denies dysuria or hematuria Musculoskeletal: Denies neck pain; reports left elbow pain Integument: Denies rash or skin lesions except for facial lip and tooth abrasions, contusions and lacerations Neurologic: Reports altered mental status and headache Physical Exam General: Alert, Cooperative, No acute distress HEENT: EOMI, Other (Facial trauma, swollen lip, multiple abrasions, possible c hipped teeth.) Lungs: Normal air movement Heart: Regular rate Abdomen: Soft Extremities: Other (The left elbow has diffuse swelling. The fracture has fracture crepitus. She is not currently in a sling or splint and I will have 1 applied. 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 No acute change in her sensory or motor function in the hand. She demonstrated radial ulnar and median nerve function. There is significant angular deformity at the distal humerus and elbow.) Skin: Other (Skin intact over the fracture) Neuro: Normal tone, Sensation intact Psych/Mental Status: Mental status NL, Mood NL MUSCULOSKELETAL: Abnormal exam of left (Elbow as above, swelling and deformity) Vitals VITALS Vital Signs Date Time Temp Pulse Resp B/P (MAP) Pulse Ox O2 Delivery O2 Flow Rate FiO2 12/09/20 12:39 Room Air 12/09/20 12:00 99.1 82 18 170/70 (103) 99 99.1 Labs Labs Laboratory Tests Test 12/08/20 17:38 12/08/20 17:46 12/08/20 19:19 12/08/20 19:54 White Blood Count 8.8 x10^3/uL (4.0-11.0) Red Blood Count 4.62 x10^6/uL (3.50-5.40) Hemoglobin 14.0 g/dL (12.0-15.5) Hematocrit 41.8 % (36.0-47.0) Mean Corpuscular Volume 91 fL (79-100) Mean Corpuscular Hemoglobin 30 pg (25-35) Mean Corpuscular Hemoglobin Concent 34 g/dL (31-37) Red Cell Distribution Width 14.3 % (11.5-14.5) Platelet Count 247 x10^3/uL (140-400) Neutrophils (%) (Auto) 62 % (31-73) Lymphocytes (%) (Auto) 30 % (24-48) Monocytes (%) (Auto) 6 % (0-9) Eosinophils (%) (Auto) 2 % (0-3) Basophils (%) (Auto) 1 % (0-3) Neutrophils # (Auto) 5.5 x10^3/uL (1.8-7.7) Lymphocytes # (Auto) 2.6 x10^3/uL (1.0-4.8) Monocytes # (Auto) 0.5 x10^3/uL (0.0-1.1) Eosinophils # (Auto) 0.1 x10^3/uL (0.0-0.7) Basophils # (Auto) 0.1 x10^3/uL (0.0-0.2) Prothrombin Time 12.5 SEC (11.7-14.0) Prothromb Time International Ratio 1.0 (0.8-1.1) Activated Partial Thromboplast Time 27 SEC (24-38) Sodium Level 139 mmol/L (136-145) Potassium Level 3.6 mmol/L (3.5-5.1) Chloride Level 100 mmol/L (98-107) Carbon Dioxide Level 29 mmol/L (21-32) Anion Gap 10 (6-14) Blood Urea Nitrogen 30 mg/dL (7-20) Creatinine 0.9 mg/dL (0.6-1.0) Estimated GFR (Cockcroft-Gault) 59.8 BUN/Creatinine Ratio 33 (6-20) Glucose Level 114 mg/dL (70-99) Lactic Acid Level 1.6 mmol/L (0.4-2.0) Calcium Level 9.6 mg/dL (8.5-10.1) Magnesium Level 2.2 mg/dL (1.8-2.4) Total Bilirubin 0.7 mg/dL (0.2-1.0) Aspartate Amino Transf (AST/SGOT) 30 U/L (15-37) Alanine Aminotransferase (ALT/SGPT) 36 U/L (14-59) Alkaline Phosphatase 103 U/L (46-116) Ammonia 14 mcmol/L (11-34) Creatine Kinase 187 U/L (26-192) Creatine Kinase MB (Mass) 4.9 ng/mL (0.0-3.6) Creatine Kinase MB Relative Index 2.6 % (0-4) Troponin I Quantitative < 0.017 ng/mL (0.000-0.055) SD-Tcw-G-Type Natriuretic Peptide 86 pg/mL (0-449) Total Protein 7.5 g/dL (6.4-8.2) Albumin 4.0 g/dL (3.4-5.0) Albumin/Globulin Ratio 1.1 (1.0-1.7) Glucose (Fingerstick) 118 mg/dL (70-99) SARS-CoV-2 Antigen (Rapid) Negative (NEGATIVE) Urine Collection Type Unknown Urine Color Yellow Urine Clarity Clear Urine pH 8.0 (<5.0-8.0) Urine Specific [place] 1.010 (1.000-1.030) Urine Protein 100 mg/dL (NEG-TRACE) Urine Glucose (UA) Negative mg/dL (NEG) Urine Ketones (Stick) Negative mg/dL (NEG) Urine Blood Trace (NEG) Urine Nitrite Negative (NEG) Urine Bilirubin Negative (NEG) Urine Urobilinogen Dipstick 0.2 mg/dL (0.2 mg/dL) Urine Leukocyte Esterase Negative (NEG) Urine RBC 0 /HPF (0-2) Urine WBC 1-4 /HPF (0-4) Urine Squamous Epithelial Cells Few /LPF Urine Amorphous Sediment Present /HPF Urine Bacteria Few /HPF (0-FEW) Test 12/09/20 05:00 White Blood Count 7.1 x10^3/uL (4.0-11.0) Red Blood Count 3.73 x10^6/uL (3.50-5.40) Hemoglobin 11.2 g/dL (12.0-15.5) Hematocrit 34.0 % (36.0-47.0) Mean Corpuscular Volume 91 fL (79-100) Mean Corpuscular Hemoglobin 30 pg (25-35) Mean Corpuscular Hemoglobin Concent 33 g/dL (31-37) Red Cell Distribution Width 14.5 % (11.5-14.5) Platelet Count 195 x10^3/uL (140-400) Neutrophils (%) (Auto) 72 % (31-73) Lymphocytes (%) (Auto) 20 % (24-48) Monocytes (%) (Auto) 8 % (0-9) Eosinophils (%) (Auto) 0 % (0-3) Basophils (%) (Auto) 1 % (0-3) Neutrophils # (Auto) 5.1 x10^3/uL (1.8-7.7) Lymphocytes # (Auto) 1.4 x10^3/uL (1.0-4.8) Monocytes # (Auto) 0.5 x10^3/uL (0.0-1.1) Eosinophils # (Auto) 0.0 x10^3/uL (0.0-0.7) Basophils # (Auto) 0.0 x10^3/uL (0.0-0.2) Sodium Level 139 mmol/L (136-145) Potassium Level 3.9 mmol/L (3.5-5.1) Chloride Level 107 mmol/L (98-107) Carbon Dioxide Level 28 mmol/L (21-32) Anion Gap 4 (6-14) Blood Urea Nitrogen 19 mg/dL (7-20) Creatinine 0.7 mg/dL (0.6-1.0) Estimated GFR (Cockcroft-Gault) 79.9 Glucose Level 118 mg/dL (70-99) Calcium Level 8.3 mg/dL (8.5-10.1) Laboratory Tests Test 12/08/20 17:38 12/08/20 17:46 12/08/20 19:19 12/08/20 19:54 White Blood Count 8.8 x10^3/uL (4.0-11.0) Red Blood Count 4.62 x10^6/uL (3.50-5.40) Hemoglobin 14.0 g/dL (12.0-15.5) Hematocrit 41.8 % (36.0-47.0) Mean Corpuscular Volume 91 fL (79-100) Mean Corpuscular Hemoglobin 30 pg (25-35) Mean Corpuscular Hemoglobin Concent 34 g/dL (31-37) Red Cell Distribution Width 14.3 % (11.5-14.5) Platelet Count 247 x10^3/uL (140-400) Neutrophils (%) (Auto) 62 % (31-73) Lymphocytes (%) (Auto) 30 % (24-48) Monocytes (%) (Auto) 6 % (0-9) Eosinophils (%) (Auto) 2 % (0-3) Basophils (%) (Auto) 1 % (0-3) Neutrophils # (Auto) 5.5 x10^3/uL (1.8-7.7) Lymphocytes # (Auto) 2.6 x10^3/uL (1.0-4.8) Monocytes # (Auto) 0.5 x10^3/uL (0.0-1.1) Eosinophils # (Auto) 0.1 x10^3/uL (0.0-0.7) Basophils # (Auto) 0.1 x10^3/uL (0.0-0.2) Prothrombin Time 12.5 SEC (11.7-14.0) Prothromb Time International Ratio 1.0 (0.8-1.1) Activated Partial Thromboplast Time 27 SEC (24-38) Sodium Level 139 mmol/L (136-145) Potassium Level 3.6 mmol/L (3.5-5.1) Chloride Level 100 mmol/L (98-107) Carbon Dioxide Level 29 mmol/L (21-32) Anion Gap 10 (6-14) Blood Urea Nitrogen 30 mg/dL (7-20) Creatinine 0.9 mg/dL (0.6-1.0) Estimated GFR (Cockcroft-Gault) 59.8 BUN/Creatinine Ratio 33 (6-20) Glucose Level 114 mg/dL (70-99) Lactic Acid Level 1.6 mmol/L (0.4-2.0) Calcium Level 9.6 mg/dL (8.5-10.1) Magnesium Level 2.2 mg/dL (1.8-2.4) Total Bilirubin 0.7 mg/dL (0.2-1.0) Aspartate Amino Transf (AST/SGOT) 30 U/L (15-37) Alanine Aminotransferase (ALT/SGPT) 36 U/L (14-59) Alkaline Phosphatase 103 U/L (46-116) Ammonia 14 mcmol/L (11-34) Creatine Kinase 187 U/L (26-192) Creatine Kinase MB (Mass) 4.9 ng/mL (0.0-3.6) Creatine Kinase MB Relative Index 2.6 % (0-4) Troponin I Quantitative < 0.017 ng/mL (0.000-0.055) PG-Uqp-B-Type Natriuretic Peptide 86 pg/mL (0-449) Total Protein 7.5 g/dL (6.4-8.2) Albumin 4.0 g/dL (3.4-5.0) Albumin/Globulin Ratio 1.1 (1.0-1.7) Glucose (Fingerstick) 118 mg/dL (70-99) SARS-CoV-2 Antigen (Rapid) Negative (NEGATIVE) Urine Collection Type Unknown Urine Color Yellow Urine Clarity Clear Urine pH 8.0 (<5.0-8.0) Urine Specific [place] 1.010 (1.000-1.030) Urine Protein 100 mg/dL (NEG-TRACE) Urine Glucose (UA) Negative mg/dL (NEG) Urine Ketones (Stick) Negative mg/dL (NEG) Urine Blood Trace (NEG) Urine Nitrite Negative (NEG) Urine Bilirubin Negative (NEG) Urine Urobilinogen Dipstick 0.2 mg/dL (0.2 mg/dL) Urine Leukocyte Esterase Negative (NEG) Urine RBC 0 /HPF (0-2) Urine WBC 1-4 /HPF (0-4) Urine Squamous Epithelial Cells Few /LPF Urine Amorphous Sediment Present /HPF Urine Bacteria Few /HPF (0-FEW) Test 12/09/20 05:00 White Blood Count 7.1 x10^3/uL (4.0-11.0) Red Blood Count 3.73 x10^6/uL (3.50-5.40) Hemoglobin 11.2 g/dL (12.0-15.5) Hematocrit 34.0 % (36.0-47.0) Mean Corpuscular Volume 91 fL (79-100) Mean Corpuscular Hemoglobin 30 pg (25-35) Mean Corpuscular Hemoglobin Concent 33 g/dL (31-37) Red Cell Distribution Width 14.5 % (11.5-14.5) Platelet Count 195 x10^3/uL (140-400) Neutrophils (%) (Auto) 72 % (31-73) Lymphocytes (%) (Auto) 20 % (24-48) Monocytes (%) (Auto) 8 % (0-9) Eosinophils (%) (Auto) 0 % (0-3) Basophils (%) (Auto) 1 % (0-3) Neutrophils # (Auto) 5.1 x10^3/uL (1.8-7.7) Lymphocytes # (Auto) 1.4 x10^3/uL (1.0-4.8) Monocytes # (Auto) 0.5 x10^3/uL (0.0-1.1) Eosinophils # (Auto) 0.0 x10^3/uL (0.0-0.7) Basophils # (Auto) 0.0 x10^3/uL (0.0-0.2) Sodium Level 139 mmol/L (136-145) Potassium Level 3.9 mmol/L (3.5-5.1) Chloride Level 107 mmol/L (98-107) Carbon Dioxide Level 28 mmol/L (21-32) Anion Gap 4 (6-14) Blood Urea Nitrogen 19 mg/dL (7-20) Creatinine 0.7 mg/dL (0.6-1.0) Estimated GFR (Cockcroft-Gault) 79.9 Glucose Level 118 mg/dL (70-99) Calcium Level 8.3 mg/dL (8.5-10.1) Images Images PATIENT: JANEY WAITE JACCOUNT: [id number] : 1935 LOCATION: ER AGE: 85 SEX: F EXAM STATUS: PRE ER ORD. PHYSICIAN: VINCENT CORADO DO REASON: syncope PROCEDURE: ELBOW LEFT 3V Left elbow one view. HISTORY: Syncope, fall Single view was taken of the left elbow. There is an angulated displaced fracture of the distal humerus. The elbow is incompletely evaluated. There is a shoulder prosthesis on the left. IMPRESSION: 1. Fracture distal humerus. Electronically signed by: Brian Romero MD (12/08/2020 6:09 PM) [facility] DICTATED and SIGNED BY: BRIAN ROMERO MD DATE: 12/08/20 [id number] PATIENT: JANEY WAITE JACCOUNT: [id number] : 1935 LOCATION: [facility] ICU AGE: 85 SEX: F EXAM STATUS: ADM IN ORD. PHYSICIAN: JANEE BURRELL MD REASON: SAH follow up PROCEDURE: CT HEAD WO CONTRAST CT brain without contrast. HISTORY: Follow-up subdural hematoma. CT scan of brain was done without contrast. There is a small subdural hematoma along the falx without change. There is no mass effect or shift of the midline. Ventricles are mildly dilated likely atrophy. An acute CVA is not identified. No new hemorrhage is noted. Sinuses are clear. A skull fracture is not identified. IMPRESSION: 1. Small subdural hematoma along the falx without change. 2. No new hemorrhage or other acute finding. RS Compliance Statement: One or more of the following individualized dose reduction techniques were utilized for this examination: 1. Automated exposure control 2. Adjustment of the mA and/or kV according to patient size 3. Use of iterative reconstruction technique Electronically signed by: Brian Romero MD (12/09/2020 8:09 AM) [facility] [employer] DICTATED and SIGNED BY: BRIAN ROMERO MD DATE: 12/09/20 [id number] Assessment/Plan Assessment/Plan She has a supracondylar humerus fracture, fracture of the distal shaft, also called a [place] Tylor fracture. These are difficult to treat nonoperatively because of the instability, and frequently can have radial nerve dysfunction. Surgical treatment of this is recommended to help improve her function and decrease pain. I discussed the option of operative versus nonoperative management with her. We discussed the potential risks of infection, radial nerve injury, bleeding, malunion or nonunion. I explained that I will need some additional fixation around her shoulder prosthesis such as a cerclage [employer] devices. She stated understanding of the risks benefits and alternatives and desires to proceed with surgery. I discussed her case with the general surgeon trauma surgeon pharmacy consultant because of her subdural hematoma to verify that orthopedic surgery is acceptable in light of the subdural. The subdural hematoma has been stable on follow-up CT scan and is felt low risk to proceed with elbow surgery. Surgery will be late in the afternoon on Thursday, she can have a clear liquid breakfast. ERLIN ULLOA MD Dec 09, 2020 14:23
--- NOTE | 2020-12-09 15:34 | PDOC2 ---
CONSULT Date of Consult Date of Consult DATE: 12/09/20 TIME: 15:29 Reason for Consult Reason for Consult: s/p fall Referring Physician Referring Physician: Dr. Rainey Identification/Chief Complaint Chief Complaint left elbow pain, facial pain Source Source: Chart review, Patient History of Present Illness Reason for Visit: 85 yo F went to get her mail and fell picking up broken beer bottle. No obvious syncope. Seen in hospital room. C/o LUE pain and facial pain. Denies abd pain. Past Medical History Cardiovascular: HTN, Hyperlipidemia Musculoskeletal: low back pain, Osteoarthritis Endocrine: Hypothyroidism Past Surgical History Past Surgical History: Cholecystectomy, Total hip replacement, Hysterectomy, Other Family History Family History: No Significant, Diabetes Social History No ALCOHOL: rare Drugs: None Lives: with Family Domestic Violence: Neg Current Problem List Problem List Problems Medical Problems: (1) Closed left humeral fracture Status: Acute (2) Head contusion Status: Acute (3) Subdural hematoma Status: Acute (4) Syncope Status: Acute (5) Tooth fracture Status: Acute Current Medications Current Medications Current Medications Sodium Chloride 1,000 ml @ 1,000 mls/hr 1X ONCE IV Last administered on 12/08/20at 17:48; Start 12/08/20 at 17:15; Stop 12/08/20 at 18:14; Status DC Neomycin/ Polymyxin/ Bacitracin (Triple Antibiotic Ointment) 1 pkt 1X ONCE TP Last administered on 12/08/20at 17:48; Start 12/08/20 at 17:15; Stop 12/08/20 at 17:17; Status DC Fentanyl Citrate (Fentanyl 2ml Vial) 50 mcg 1X ONCE IV Last administered on 12/08/20at 17:50; Start 12/08/20 at 17:45; Stop 12/08/20 at 17:50; Status DC Piperacillin Sod/ Tazobactam Sod 3.375 gm/Sodium Chloride 50 ml @ 100 mls/hr 1X ONCE IV Last administered on 12/08/20at 19:39; Start 12/08/20 at 18:45; Stop 12/08/20 at 19:14; Status DC Sodium Chloride 500 ml @ 500 mls/hr 1X ONCE IV Last administered on 12/08/20at 19:40; Start 12/08/20 at 18:45; Stop 12/08/20 at 19:44; Status DC Lorazepam (Ativan Inj) 0.5 mg PRN Q6HRS PRN IVP ANXIETY / AGITATION Last administered on 12/08/20at 23:57; Start 12/08/20 at 19:15 Ondansetron HCl (Zofran) 4 mg PRN Q6HRS PRN IVP NAUSEA/VOMITING Last administered on 12/08/20at 21:37; Start 12/08/20 at 19:15 Calcium Carbonate/ Glycine (Tums) 500 mg PRN Q3HRS PRN PO HEARTBURN / GAS; Start 12/08/20 at 19:15 Info (Icu Electrolyte Protocol) 1 ea DAILY MC ; Start 12/09/20 at 09:00; Stop 12/09/20 at 13:12; Status DC Sodium Chloride (Normal Saline Flush) 3 ml QSHIFT PRN IV AFTER MEDS AND BLOOD DRAWS; Start 12/08/20 at 19:15 Lactulose (Lactulose) 20 gm PRN Q12HR PRN PO CONSTIPATION; Start 12/08/20 at 19:15 Bisacodyl (Dulcolax Supp) 10 mg PRN DAILY PRN VT CONSTIPATION; Start 12/08/20 at 19:15 Acetaminophen (Tylenol) 500 mg TID PO Last administered on 12/09/20at 13:12; Start 12/08/20 at 21:00 Atorvastatin Calcium (Lipitor) 20 mg QHS PO ; Start 12/08/20 at 21:00 Docusate Sodium (Colace) 100 mg BID PO ; Start 12/08/20 at 21:00 Acetaminophen/ Hydrocodone Bitart (Lortab 10/325) 1 tab PRN TID PRN PO SEVERE PAIN; Start 12/08/20 at 19:15 Acetaminophen/ Hydrocodone Bitart (Lortab 5/325) 1 tab PRN Q6HRS PRN PO MODERATE PAIN; Start 12/08/20 at 19:15 Levothyroxine Sodium (Synthroid) 112 mcg DAILY06 PO Last administered on 12/09/20at 06:11; Start 12/09/20 at 06:00 Potassium Chloride (Klor-Con) 10 meq DAILY PO ; Start 12/09/20 at 09:00 Triamterene/HCTZ (Maxzide 37.5/ 25mg) 1 tab DAILY PO ; Start 12/09/20 at 09:00 Pantoprazole Sodium (Protonix) 40 mg DAILYAC PO ; Start 12/09/20 at 07:30 Sodium Chloride 1,000 ml @ 125 mls/hr Q8H IV Last administered on 12/09/20at 13:13; Start 12/08/20 at 19:30; Stop 12/09/20 at 19:29 Diphtheria/ Tetanus/Acell Pertussis (ADACEL TDap SYRINGE) 0.5 ml ONCE ONCE VAX IM Last administered on 12/08/20at 20:52; Start 12/08/20 at 19:30; Stop 12/08/20 at 19:57; Status DC Hydromorphone HCl (Dilaudid) 1 mg PRN Q3HRS PRN IVP SEVERE PAIN Last administered on 12/08/20at 20:57; Start 12/08/20 at 20:15; Stop 12/08/20 at 23:01; Status DC Alprazolam (Xanax) 0.5 mg PRN Q4HRS PRN PO ANXIETY; Start 12/08/20 at 20:15 Fentanyl Citrate (Fentanyl 2ml Vial) 25 mcg PRN Q3HRS PRN IVP PAIN Last administered on 12/09/20at 13:20; Start 12/08/20 at 23:00 Labetalol HCl (Normodyne Iv Push) 10 mg PRN Q4HRS PRN IVP HYPERTENSION Q4HRS W/A; Start 12/08/20 at 23:00 Info (Non-Icu Electrolyte Protocol) 1 ea CONT PRN PRN MC SEE COMMENTS; Start 12/09/20 at 13:15 Cefazolin Sodium/ Dextrose 50 ml @ 100 mls/hr 1X PREOP PRN IV SEE COMMENTS; Start 12/10/20 at 06:00 Active Scripts Active [place] 5-325 Tablet (Acetaminophen/Hydrocodone Bitart) 1 Each Tablet 1 Tab PO PRN Q6HRS PRN Colace (Docusate Sodium) 100 Mg Capsule 100 Mg PO BID Reported Acetaminophen 500 Mg Tablet 1 Tab PO TID Levothyroxine Sodium 112 Mcg Tablet 1 Tab PO DAILY Omeprazole 20 Mg Capsule.dr 1 Cap PO DAILY Hydrocodone-Apap 10-325 (Hydrocodone Bit/Acetaminophen) 1 Each Tablet 5 Mg PO TID PRN Potassium Chloride (Potassium Chloride) 10 Meq Capsule.er 10 Meq PO DAILY Estropipate 1.5 Mg Tablet 1.25 Mg PO DAILY Lipitor (Atorvastatin Calcium) 20 Mg Tablet 1 Tab PO DAILY Triamterene-Hctz 37.5-25 Mg Tb (Triamterene/Hydrochlorothiazid) 1 Each Tablet 1 Tab PO DAILY Aspir 81 (Aspirin) 81 Mg Tablet. 1 Tab PO DAILY Allergies Allergies: Coded Allergies: albumin colloid, human (Verified Allergy, Intermediate, 05/13/17) hydromorphone (Verified Allergy, Intermediate, Unknown, 05/12/17) morphine (Verified Allergy, Intermediate, rash, grayson, 06/13/19) nitrofurantoin (Verified Allergy, Intermediate, 05/12/17) ROS Musculoskeletal: Yes Joint Pain Physical Exam General: Alert, Oriented X3, Cooperative, No acute distress HEENT: Other (left facial ecchymosis and chin ecchymosis) Lungs: Normal air movement Abdomen: Soft, No tenderness Extremities: No clubbing, No cyanosis, Other (LUE swelling) Skin: No rashes, No breakdown Neuro: Normal speech, Sensation intact Psych/Mental Status: Mental status NL, Mood NL Vitals VITALS Vital Signs Date Time Temp Pulse Resp B/P (MAP) Pulse Ox O2 Delivery O2 Flow Rate FiO2 12/09/20 12:39 Room Air 12/09/20 12:00 99.1 82 18 170/70 (103) 99 99.1 Labs Labs Laboratory Tests Test 12/08/20 17:38 12/08/20 17:46 12/08/20 19:19 12/08/20 19:54 White Blood Count 8.8 x10^3/uL (4.0-11.0) Red Blood Count 4.62 x10^6/uL (3.50-5.40) Hemoglobin 14.0 g/dL (12.0-15.5) Hematocrit 41.8 % (36.0-47.0) Mean Corpuscular Volume 91 fL (79-100) Mean Corpuscular Hemoglobin 30 pg (25-35) Mean Corpuscular Hemoglobin Concent 34 g/dL (31-37) Red Cell Distribution Width 14.3 % (11.5-14.5) Platelet Count 247 x10^3/uL (140-400) Neutrophils (%) (Auto) 62 % (31-73) Lymphocytes (%) (Auto) 30 % (24-48) Monocytes (%) (Auto) 6 % (0-9) Eosinophils (%) (Auto) 2 % (0-3) Basophils (%) (Auto) 1 % (0-3) Neutrophils # (Auto) 5.5 x10^3/uL (1.8-7.7) Lymphocytes # (Auto) 2.6 x10^3/uL (1.0-4.8) Monocytes # (Auto) 0.5 x10^3/uL (0.0-1.1) Eosinophils # (Auto) 0.1 x10^3/uL (0.0-0.7) Basophils # (Auto) 0.1 x10^3/uL (0.0-0.2) Prothrombin Time 12.5 SEC (11.7-14.0) Prothromb Time International Ratio 1.0 (0.8-1.1) Activated Partial Thromboplast Time 27 SEC (24-38) Sodium Level 139 mmol/L (136-145) Potassium Level 3.6 mmol/L (3.5-5.1) Chloride Level 100 mmol/L (98-107) Carbon Dioxide Level 29 mmol/L (21-32) Anion Gap 10 (6-14) Blood Urea Nitrogen 30 mg/dL (7-20) Creatinine 0.9 mg/dL (0.6-1.0) Estimated GFR (Cockcroft-Gault) 59.8 BUN/Creatinine Ratio 33 (6-20) Glucose Level 114 mg/dL (70-99) Lactic Acid Level 1.6 mmol/L (0.4-2.0) Calcium Level 9.6 mg/dL (8.5-10.1) Magnesium Level 2.2 mg/dL (1.8-2.4) Total Bilirubin 0.7 mg/dL (0.2-1.0) Aspartate Amino Transf (AST/SGOT) 30 U/L (15-37) Alanine Aminotransferase (ALT/SGPT) 36 U/L (14-59) Alkaline Phosphatase 103 U/L (46-116) Ammonia 14 mcmol/L (11-34) Creatine Kinase 187 U/L (26-192) Creatine Kinase MB (Mass) 4.9 ng/mL (0.0-3.6) Creatine Kinase MB Relative Index 2.6 % (0-4) Troponin I Quantitative < 0.017 ng/mL (0.000-0.055) OD-Yvc-R-Type Natriuretic Peptide 86 pg/mL (0-449) Total Protein 7.5 g/dL (6.4-8.2) Albumin 4.0 g/dL (3.4-5.0) Albumin/Globulin Ratio 1.1 (1.0-1.7) Glucose (Fingerstick) 118 mg/dL (70-99) SARS-CoV-2 Antigen (Rapid) Negative (NEGATIVE) Urine Collection Type Unknown Urine Color Yellow Urine Clarity Clear Urine pH 8.0 (<5.0-8.0) Urine Specific [place] 1.010 (1.000-1.030) Urine Protein 100 mg/dL (NEG-TRACE) Urine Glucose (UA) Negative mg/dL (NEG) Urine Ketones (Stick) Negative mg/dL (NEG) Urine Blood Trace (NEG) Urine Nitrite Negative (NEG) Urine Bilirubin Negative (NEG) Urine Urobilinogen Dipstick 0.2 mg/dL (0.2 mg/dL) Urine Leukocyte Esterase Negative (NEG) Urine RBC 0 /HPF (0-2) Urine WBC 1-4 /HPF (0-4) Urine Squamous Epithelial Cells Few /LPF Urine Amorphous Sediment Present /HPF Urine Bacteria Few /HPF (0-FEW) Test 12/09/20 05:00 White Blood Count 7.1 x10^3/uL (4.0-11.0) Red Blood Count 3.73 x10^6/uL (3.50-5.40) Hemoglobin 11.2 g/dL (12.0-15.5) Hematocrit 34.0 % (36.0-47.0) Mean Corpuscular Volume 91 fL (79-100) Mean Corpuscular Hemoglobin 30 pg (25-35) Mean Corpuscular Hemoglobin Concent 33 g/dL (31-37) Red Cell Distribution Width 14.5 % (11.5-14.5) Platelet Count 195 x10^3/uL (140-400) Neutrophils (%) (Auto) 72 % (31-73) Lymphocytes (%) (Auto) 20 % (24-48) Monocytes (%) (Auto) 8 % (0-9) Eosinophils (%) (Auto) 0 % (0-3) Basophils (%) (Auto) 1 % (0-3) Neutrophils # (Auto) 5.1 x10^3/uL (1.8-7.7) Lymphocytes # (Auto) 1.4 x10^3/uL (1.0-4.8) Monocytes # (Auto) 0.5 x10^3/uL (0.0-1.1) Eosinophils # (Auto) 0.0 x10^3/uL (0.0-0.7) Basophils # (Auto) 0.0 x10^3/uL (0.0-0.2) Sodium Level 139 mmol/L (136-145) Potassium Level 3.9 mmol/L (3.5-5.1) Chloride Level 107 mmol/L (98-107) Carbon Dioxide Level 28 mmol/L (21-32) Anion Gap 4 (6-14) Blood Urea Nitrogen 19 mg/dL (7-20) Creatinine 0.7 mg/dL (0.6-1.0) Estimated GFR (Cockcroft-Gault) 79.9 Glucose Level 118 mg/dL (70-99) Calcium Level 8.3 mg/dL (8.5-10.1) Laboratory Tests Test 12/08/20 17:38 12/08/20 17:46 12/08/20 19:19 12/08/20 19:54 White Blood Count 8.8 x10^3/uL (4.0-11.0) Red Blood Count 4.62 x10^6/uL (3.50-5.40) Hemoglobin 14.0 g/dL (12.0-15.5) Hematocrit 41.8 % (36.0-47.0) Mean Corpuscular Volume 91 fL (79-100) Mean Corpuscular Hemoglobin 30 pg (25-35) Mean Corpuscular Hemoglobin Concent 34 g/dL (31-37) Red Cell Distribution Width 14.3 % (11.5-14.5) Platelet Count 247 x10^3/uL (140-400) Neutrophils (%) (Auto) 62 % (31-73) Lymphocytes (%) (Auto) 30 % (24-48) Monocytes (%) (Auto) 6 % (0-9) Eosinophils (%) (Auto) 2 % (0-3) Basophils (%) (Auto) 1 % (0-3) Neutrophils # (Auto) 5.5 x10^3/uL (1.8-7.7) Lymphocytes # (Auto) 2.6 x10^3/uL (1.0-4.8) Monocytes # (Auto) 0.5 x10^3/uL (0.0-1.1) Eosinophils # (Auto) 0.1 x10^3/uL (0.0-0.7) Basophils # (Auto) 0.1 x10^3/uL (0.0-0.2) Prothrombin Time 12.5 SEC (11.7-14.0) Prothromb Time International Ratio 1.0 (0.8-1.1) Activated Partial Thromboplast Time 27 SEC (24-38) Sodium Level 139 mmol/L (136-145) Potassium Level 3.6 mmol/L (3.5-5.1) Chloride Level 100 mmol/L (98-107) Carbon Dioxide Level 29 mmol/L (21-32) Anion Gap 10 (6-14) Blood Urea Nitrogen 30 mg/dL (7-20) Creatinine 0.9 mg/dL (0.6-1.0) Estimated GFR (Cockcroft-Gault) 59.8 BUN/Creatinine Ratio 33 (6-20) Glucose Level 114 mg/dL (70-99) Lactic Acid Level 1.6 mmol/L (0.4-2.0) Calcium Level 9.6 mg/dL (8.5-10.1) Magnesium Level 2.2 mg/dL (1.8-2.4) Total Bilirubin 0.7 mg/dL (0.2-1.0) Aspartate Amino Transf (AST/SGOT) 30 U/L (15-37) Alanine Aminotransferase (ALT/SGPT) 36 U/L (14-59) Alkaline Phosphatase 103 U/L (46-116) Ammonia 14 mcmol/L (11-34) Creatine Kinase 187 U/L (26-192) Creatine Kinase MB (Mass) 4.9 ng/mL (0.0-3.6) Creatine Kinase MB Relative Index 2.6 % (0-4) Troponin I Quantitative < 0.017 ng/mL (0.000-0.055) KB-Zsd-D-Type Natriuretic Peptide 86 pg/mL (0-449) Total Protein 7.5 g/dL (6.4-8.2) Albumin 4.0 g/dL (3.4-5.0) Albumin/Globulin Ratio 1.1 (1.0-1.7) Glucose (Fingerstick) 118 mg/dL (70-99) SARS-CoV-2 Antigen (Rapid) Negative (NEGATIVE) Urine Collection Type Unknown Urine Color Yellow Urine Clarity Clear Urine pH 8.0 (<5.0-8.0) Urine Specific [place] 1.010 (1.000-1.030) Urine Protein 100 mg/dL (NEG-TRACE) Urine Glucose (UA) Negative mg/dL (NEG) Urine Ketones (Stick) Negative mg/dL (NEG) Urine Blood Trace (NEG) Urine Nitrite Negative (NEG) Urine Bilirubin Negative (NEG) Urine Urobilinogen Dipstick 0.2 mg/dL (0.2 mg/dL) Urine Leukocyte Esterase Negative (NEG) Urine RBC 0 /HPF (0-2) Urine WBC 1-4 /HPF (0-4) Urine Squamous Epithelial Cells Few /LPF Urine Amorphous Sediment Present /HPF Urine Bacteria Few /HPF (0-FEW) Test 12/09/20 05:00 White Blood Count 7.1 x10^3/uL (4.0-11.0) Red Blood Count 3.73 x10^6/uL (3.50-5.40) Hemoglobin 11.2 g/dL (12.0-15.5) Hematocrit 34.0 % (36.0-47.0) Mean Corpuscular Volume 91 fL (79-100) Mean Corpuscular Hemoglobin 30 pg (25-35) Mean Corpuscular Hemoglobin Concent 33 g/dL (31-37) Red Cell Distribution Width 14.5 % (11.5-14.5) Platelet Count 195 x10^3/uL (140-400) Neutrophils (%) (Auto) 72 % (31-73) Lymphocytes (%) (Auto) 20 % (24-48) Monocytes (%) (Auto) 8 % (0-9) Eosinophils (%) (Auto) 0 % (0-3) Basophils (%) (Auto) 1 % (0-3) Neutrophils # (Auto) 5.1 x10^3/uL (1.8-7.7) Lymphocytes # (Auto) 1.4 x10^3/uL (1.0-4.8) Monocytes # (Auto) 0.5 x10^3/uL (0.0-1.1) Eosinophils # (Auto) 0.0 x10^3/uL (0.0-0.7) Basophils # (Auto) 0.0 x10^3/uL (0.0-0.2) Sodium Level 139 mmol/L (136-145) Potassium Level 3.9 mmol/L (3.5-5.1) Chloride Level 107 mmol/L (98-107) Carbon Dioxide Level 28 mmol/L (21-32) Anion Gap 4 (6-14) Blood Urea Nitrogen 19 mg/dL (7-20) Creatinine 0.7 mg/dL (0.6-1.0) Estimated GFR (Cockcroft-Gault) 79.9 Glucose Level 118 mg/dL (70-99) Calcium Level 8.3 mg/dL (8.5-10.1) Images Images subdural and LUE fracture Assessment/Plan Assessment/Plan s/p fall, subdural and LUE fracture d/w ortho appreciate NS involvement no surgical plans. Thanks for consult! MANOHAR RUIZ MD Dec 09, 2020 15:34
[2020-12-09] MEDS: ATORVASTATIN CALCIUM 20 MG TABLET PO SCH (22:54)
[2020-12-10] VITALS (13 sets, daily range): BP systolic 96–172; BP diastolic 43–85
[2020-12-10] MEDS: TRIAMTERENE/HCTZ 37.5/25MG TABLET. PO SCH (08:39)
[2020-12-10] MEDS: ACETAMINOPHEN 500 MG TABLET PO SCH ×3 (08:39→20:46)
[2020-12-10] MEDS: POTASSIUM CHLORIDE 10 MEQ TABLET.ER. PO SCH (08:39)
[2020-12-10] MEDS: LEVOTHYROXINE 112 MCG TABLET PO SCH (08:39)
[2020-12-10] MEDS: PANTOPRAZOLE 40 MG TABLET.DR. PO SCH (08:39)
[2020-12-10] MEDS: DOCUSATE SODIUM 100 MG CAPSULE. PO SCH ×2 (08:40→20:46)
[2020-12-10] MEDS: fentaNYL PF VIAL 100 MCG/2 ML VIAL IVP PRN (08:58)
--- NOTE | 2020-12-10 09:10 | PDOC ---
Provider Note Date of Service: DATE: 12/10/20 TIME: 09:04 Provider Note LATE ENTRY: Patient seen and examined 12-09-20 at 1100 consulted for SDH S/P 85 yo F went to get her mail and fell picking up broken beer bottle c/o left elbow pain, facial pain neuro intact, left facial ecchymosis and chin ecchymosis CT with Small subdural hematoma along the falx, stable on follow up CT D/W RN Will need f/u CT in a week Justifications for Admission Other Justification Subarachnoid hemorrhage NATHALY AMIN MD Dec 10, 2020 09:10
--- NOTE | 2020-12-10 10:17 | RAD ---
Left elbow 3 views COMPARISON: Left elbow x-rays of 12/08/2020 FINDINGS: Displaced complete oblique fracture through the distal diaphysis of the left humerus is demonstrated with proximal override and minimal apex lateral angulation. Diffuse soft tissue edema is present. Par tially imaged left humeral arthroplasty is redemonstrated. IMPRESSION: Displaced acute oblique fracture with mild proximal override of the distal left humeral diaphysis. Electronically signed by: Renetta Quintanilla MD (12/10/2020 10:01 AM) [id number]
--- NOTE | 2020-12-10 10:18 | PDOC ---
[facility] PROGRESS NOTE Date of Service DOS: DATE: 12/10/20 TIME: 10:11 Chief Complaint Chief Complaint Syncope SDH Facial Trauma History of Present Illness History of Present Illness 12/10/2020 Patient seen and examined Dw RN Chart reviewed Vitals/I&O Vitals/I&O: Vital Signs Date Time Temp Pulse Resp B/P (MAP) Pulse Ox O2 Delivery O2 Flow Rate FiO2 12/10/20 09:28 99 Room Air 12/10/20 07:00 97.9 76 18 169/85 (113) 97.9 I & O 12/09/20 12/09/20 12/10/20 15:00 23:00 07:00 Intake Total 1240 ml Output Total 700 ml 1350 ml Balance -700 ml -110 ml Physical Exam Physical Exam: HEENT, bruising on the left side of the face, teeth are chipped and loose General: Alert, Oriented X3, Cooperative, No acute distress Heart: Regular rate Lungs: Clear Abdomen: Soft, No tenderness Extremities: No clubbing, No cyanosis, Other (LUE swelling) Skin: No rashes, No breakdown Review of Systems Review of Systems: Complains of loose teeth Complains of pain Assessment and Plan Assessmemt and Plan Problems Medical Problems: (1) Closed left humeral fracture Status: Acute (2) Head contusion Status: Acute (3) Subdural hematoma Status: Acute (4) Syncope Status: Acute (5) Tooth fracture Status: Acute Syncope SDH Facial Trauma P: 1. ORIF Left humerus 2. PRN pain meds 3. Wound care 4. DVT prophylaxis 5. Consult oral surgeon , Card Comment Review of Relevant I have reviewed the following items dawson (where applicable) has been applied. Justifications for Admission Other Justification Subarachnoid hemorrhage CAM CAMACHO III DO Dec 10, 2020 10:18
--- NOTE | 2020-12-10 10:56 | PDOC ---
CARDIO Progress Notes Date and Time Date of Service 12/10/20 Time of Evaluation 1050 Subjective Subjective: No Chest Pain, No shortness of breath, Other (left arm pain ) Vitals Vitals Vital Signs Date Time Temp Pulse Resp B/P (MAP) Pulse Ox O2 Delivery O2 Flow Rate FiO2 12/10/20 09:28 99 Room Air 12/10/20 07:00 97.9 76 18 169/85 (113) 97.9 Weight Weight [ ] Input and Output Intake and Output Intake and Output 12/10/20 07:00 Intake Total 1240 ml Output Total 2050 ml Balance -810 ml Intake Oral 240 ml IV Total 1000 ml Output Urine Total 2050 ml Microbiology Micro Microbiology 12/08/20 Blood Culture - Preliminary, Resulted NO GROWTH AFTER 1 DAY Physical Exam HEENT: Other (diffuse facial ecchymosis) Chest: Symmetric LUNGS: Clear to Auscultation Heart: RRR Abdomen: Soft N/T Extremities: Other (LUE edema ) Neurology: alert, oriented, follow commands Assessment Assessment 1. Syncope; etiology unclear 2. Traumatic fall with distal left humerus fracture and small acute SDH. surgical repair today 3. Hypertension; controlled 4. Hyperlipidemia 5. Hypothyroidism Recommendations Monitor tele Echo to assess LV systolic function, rule out structural anomalies Will plan for implantable loop recorder placement for long-term rhythm monitoring. Will likely plan for implantation tomorrow Justicifation of Admission Dx: Justifications for Admission: Justification of Admission Dx: Yes Comments: left humerus fracture Syncope EDDIE DUCKWORTH APRN Dec 10, 2020 10:56
[2020-12-10] MEDS ORDERED: LIDOCAINE 2% PF 5 ML VIAL. ONE (11:50)
[2020-12-10] MEDS ORDERED: PROPOFOL 10 MG/ML (20ML) VIAL. IV ONE (11:50)
[2020-12-10] MEDS ORDERED: DEXAMETHASONE SOD PHOS 4 MG/ML VIAL ONE (11:50)
[2020-12-10] MEDS ORDERED: ONDANSETRON PF 4 MG/2 ML VIAL. ONE (11:51)
[2020-12-10] MEDS ORDERED: fentaNYL PF VIAL 100 MCG/2 ML VIAL ONE ×2 (11:51→17:08)
[2020-12-10] MEDS ORDERED: BUPIVACAINE-EPI 0.25%-1:200000 MPF 30 ML VIAL. ONE (13:00)
[2020-12-10] MEDS ORDERED: BUPIVACAINE-EPI 0.25%-1:200000 MPF 30 ML VIAL. INJ ONE (13:00)
--- NOTE | 2020-12-10 15:08 | CARD ---
MR#: [id number] Date of Study: 12/10/2020 Ordering Physician: JAILENE GUTIERREZ, Referring Physician: JAILENE GUTIERREZ, Tech: Jenny Cote [facility] APPROVED REPORT EXAM: LIMITED Two-dimensional and M-mode echocardiogram. Other Information Quality : LimitedLimitedGoodHR: 80bpm Rhythm : NSR INDICATION Syncope RISK FACTORS Hypertension 2D DIMENSIONS Left Atrium(2D)2.7 (1.6-4.0cm)IVSd0.9 (0.7-1.1cm) Aortic Root(2D)3.0 (2.0-3.7cm)LVDd3.7 (3.9-5.9cm) LVOT Diameter2.1 (1.8-2.4cm)PWd0.9 (0.7-1.1cm) LVDs2.4 (2.5-4.0cm)FS (%) 34.2 % SV37.1 mlLVEF(%)64.1 (>50%) Tricuspid Valve TR P. [id number] Peak Gr.17mmHg LEFT VENTRICLE The left ventricle is normal size. There is normal left ventricular wall thickness. The left ventricu lar systolic function is normal and the ejection fraction is within normal range. EF 55% There is nor mal LV segmental wall motion. RIGHT VENTRICLE The right ventricle is normal size. There is normal right ventricular wall thickness. The right ventr icular systolic function is normal. ATRIA The left atrium size is normal. The right atrium size is normal. The interatrial septum is intact wit h no evidence for an atrial septal defect or patent foramen ovale as noted on 2-D or Doppler imaging. AORTIC VALVE The aortic valve is normal in structure and function. Doppler and Color Flow revealed no significant aortic regurgitation. MITRAL VALVE The mitral valve is normal in structure and function. There is no evidence of mitral valve prolapse. There is no mitral valve stenosis. Doppler and Color-flow revealed trace mitral regurgitation in colo rflow. TRICUSPID VALVE The tricuspid valve is normal in structure and function. Doppler and Color Flow revealed trace tricus pid regurgitation. Unable to obtain PAP. GREAT VESSELS The aortic root is normal in size. PERICARDIAL EFFUSION There is no evidence of significant pericardial effusion. Critical Notification Critical Value: No <Conclusion> The left ventricular systolic function is normal and the ejection fraction is within normal range. EF 55% There is normal LV segmental wall motion. Technically limited echo due to patient factors. Signed by : Baldemar Alexis, Electronically Approved : 12/10/2020 15:08:39
[2020-12-10] MEDS ORDERED: SEVOFLURANE 61 TO 120 MINUTES. IH ONE (15:13)
--- NOTE | 2020-12-10 15:21 | NUR ---
SS following for discharge planning. SS reviewed pt chart and discussed with pt RN. Pt is from home with spouse and is currently on room air. COVID19 negative. Pt having surgery today for humerus fracture. Pt also scheduled for loop recorder as well. SS will continue to follow for discharge planning.
[2020-12-10] MEDS ORDERED: VANCOMYCIN 1 GM VIAL. ONE (16:02)
[2020-12-10] MEDS ORDERED: BUPIVACAINE MPF 0.5% 30 ML VIAL. ONE (16:10)
[2020-12-10] MEDS ORDERED: SEVOFLURANE > 120 MINUTES. IH ONE (16:13)
--- NOTE | 2020-12-10 16:26 | PDOC4 ---
Operative Note Operative Note Date of Procedure: December 10, 2020 Pre-Op Diagnosis: Displaced spiral fracture of shaft of humerus, left arm, initial encounter for closed fracture S42.342A Post-Op Diagnosis: Same Procedure: Open treatment of left humeral shaft fracture with plate/screws and cerclage, CPT 63374 Surgeon: Erlin Ramos MD Anesthesia: Drill Press Operator: ARYA Singh EBL: 200 mL Specimens Obtained: none Complications: none Drains: none Tourniquet time: 20 minutes Indications for Procedure: The patient is a 85-year-old with a spiral fracture of the left distal humeral shaft which is displaced and unstable. 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 The patient and I discussed the risks, benefits and alternatives of surgery. I recommended internal fixation. We discussed the potential risks of radial nerve injury, numbness, weakness, malunion or nonunion, need for further surgery, bleeding, scarring, infection, or other potential surgical or anesthetic complications. We discussed possible nonoperative treatment but I do recommend surgery for this fracture and he agrees. The patient stated understanding of the risks benefits and alternatives. A written consent was obtained. I explained the issues with the previous shoulder arthroplasty and t that a spanning type of fixation is recommended, likely with unicortical screws and/or cerclage, to prevent a stress fracture between a shorter humeral plate and the shoulder prosthesis. Procedure in Detail: The patient was identified in the preoperative holding area. The correct left upper extremity was marked by me. The patient was taken to the operating room where general anesthesia was used. The patient was positioned supine on the operating table. Preoperative antibiotics were given intravenously. A timeout procedure was performed. The limb was prepared in sterile fashion with surgical prep solution. Sterile drapes were applied. The lower part of the arm was covered with an impervious stockinette and Coban. A sterile tourniquet was applied. The limb was exsanguinated with an Esmarch bandage, and the tourniquet inflated to 275 mmHg. A modified anterolateral approach to the distal humeral shaft was employed. Sharp dissection was used through the skin with a scalpel, and then careful Metzenbaum scissor dissection was performed, with care made not to injure the radial nerve or the lateral antebrachial cutaneous nerve. The intermuscular septum was located distally, and dissected proximally. The radial nerve was identified, carefully dissected and mobilized, and protected throughout the surgery with a vessel loop. It was well mobilized to prevent radial nerve injury during reduction and fixation. The sh jeane fracture edges were quite close to the nerve but no apparent nerve injury had occurred. The interval between the brachioradialis and biceps was employed. Electrocautery was used for hemostasis. Care was made not to injure the radial nerve or the lateral antebrachial cutaneous nerve. The fracture was identified and was markedly displaced. Fracture hematoma was cleared with curettes, rongeurs, and irrigation. Careful subperiosteal dissection was used up the humerus. The fracture was held reduced with several bone clamps. Interfragmentary lag screw fixation was placed, with secure fixation of a single screw. The reduction appeared anatomic. The large image intensifier was used to confirm the reduction. The image intensifier was used throughout the procedure, and all the images were interpreted intraoperatively by me. Initially I used the narrow 4.5 mm plate, but this was too large for her thin humerus. I then applied a Synthes 3.5 mm LCDC stainless steel locking plate. In order to bridge across the shoulder prosthesis a 14 hole plate was used. The tourniquet was released and the incision extended proximally to allow positioning of this plate. This was positioned using the image intensifier and contoured to fit the lateral and anterior humerus distally and then along the shaft. A screw was placed to secure the plate to the bone. The image intensifier was used to confirm satisfactory length of the plate and that the plate position was satisfactory. 2 additional nonlocking screws were placed, one at the most distal plate hole, and the other slightly below the distal stem of the shoulder prosthesis. Locking screws were now applied. The upper 3 holes in the plate are filled with unicortical locking screws, up against the shoulder prosthesis. I also used a an Arthrex tiger tape cerclage device around the upper portion of the plate and the humerus. Care was made during passage of the cerclage to avoid the radial nerve. The nerve was palpated and gently retracted with a gloved finger while the suture passer was used. The tiger tape cerclage was tensioned and then tied without difficulty. Excellent rigid fixation was obtained. Final images were taken with the image intensifier. Satisfactory reduction and fixation was obtained. Copious irrigation was used. Outer gloves were changed. Bovie electrocautery was used for hemostasis. Copious saline irrigation was used. The fascia was repaired with 0 Vicryl [id number] sutures. My service center assistant repaired the subcutaneous tissues with 2-0 Vicryl, and approximated the skin with debby. Local anesthetic 30 mL of 0.25% bupivacaine with epinephrine was injected into the skin edges. Xeroform and a sterile dressing were applied. A posterior splint was applied. Needle and sponge counts were correct. There were no apparent complications. ERLIN RAMOS MD Dec 10, 2020 16:26
[2020-12-10] MEDS ORDERED: POLYETHYLENE GLYCOL 3350 17 GM PACKET. PO PRN (16:45)
[2020-12-10] MEDS ORDERED: ONDANSETRON PF 4 MG/2 ML VIAL. IVP PRN (16:45)
[2020-12-10] MEDS: IV 1/2 NORMAL SALINE 1,000 ML IV SCH (16:45)
[2020-12-10] MEDS ORDERED: DEXTROSE 50% 25 GM / 50ML DISP.SYRIN. IV PRN (16:45)
[2020-12-10] MEDS ORDERED: oxyCODONE/APAP 5/325 1 TAB TABLET PO PRN (16:45)
[2020-12-10] MEDS ORDERED: LIDOCAINE 1% PF 2 ML VIAL. ID PRN (17:15)
[2020-12-10] MEDS ORDERED: ONDANSETRON PF 4 MG/2 ML VIAL. IV PRN (17:15)
[2020-12-10] MEDS ORDERED: fentaNYL PF VIAL 100 MCG/2 ML VIAL IV PRN ×2 (17:15)
[2020-12-10] MEDS ORDERED: HYDROmorphone 2 MG/ML VIAL IV PRN (17:15)
[2020-12-10] MEDS ORDERED: PROCHLORPERAZINE 10 MG/2 ML VIAL. IV PRN (17:15)
[2020-12-10] MEDS ORDERED: MORPHINE SULFATE 2 MG/ML VIAL. IV PRN (17:15)
[2020-12-10] MEDS ORDERED: IV RINGERS,LACTATED 1000ML 1,000 ML IV SCH (17:15)
[2020-12-10] MEDS: ATORVASTATIN CALCIUM 20 MG TABLET PO SCH (20:46)
[2020-12-10] MEDS: ALPRAZolam 0.5 MG TABLET PO PRN (20:55)
[2020-12-11] VITALS (10 sets, daily range): BP systolic 93–118; BP diastolic 39–63
[2020-12-11] MEDS ORDERED: MAGNESIUM HYDROXIDE 2,400 MG/30 ML ORAL.SUSP. PO PRN (06:00)
[2020-12-11] MEDS: IV 1/2 NORMAL SALINE 1,000 ML IV SCH ×2 (06:05→19:25)
[2020-12-11] MEDS: LEVOTHYROXINE 112 MCG TABLET PO SCH (06:14)
[2020-12-11] MEDS ORDERED: LIDOCAINE 2%/EPI 1:100,000 20 ML VIAL. ONE (07:41)
[2020-12-11] MEDS: CHOLECALCIFEROL (VITAMIN D3) 1,000 UNIT TABLET PO SCH (07:55)
[2020-12-11] MEDS: MULTIVITAMIN with MINERAL TABLET. PO SCH (07:55)
[2020-12-11] MEDS: TRIAMTERENE/HCTZ 37.5/25MG TABLET. PO SCH (07:55)
[2020-12-11] MEDS: DOCUSATE SODIUM 100 MG CAPSULE. PO SCH ×2 (07:55→20:07)
[2020-12-11] MEDS: SENNOSIDES/DOCUSATE 8.6/50MG TABLET. PO SCH (07:55)
[2020-12-11] MEDS: ACETAMINOPHEN 500 MG TABLET PO SCH ×3 (07:55→20:07)
[2020-12-11] MEDS: POTASSIUM CHLORIDE 10 MEQ TABLET.ER. PO SCH (07:56)
[2020-12-11] MEDS: PANTOPRAZOLE 40 MG TABLET.DR. PO SCH (07:56)
[2020-12-11] MEDS ORDERED: LIDOCAINE 2%/EPI 1:100,000 20 ML VIAL. INJ ONE (08:30)
[2020-12-11] MEDS: fentaNYL PF VIAL 100 MCG/2 ML VIAL IVP PRN (08:50)
--- NOTE | 2020-12-11 10:15 | NUR ---
SS following up with discharge planning. SS reviewed pt chart and discussed with pt RN. Pt is currently on room air. Pt had surgery on humerus on 12/10/2020. COVID19 negative. PT/OT notified SS that they are recommending usp unit. SS met with pt to discuss discharge planning and usp unit. Pt reported that she wanted to go to [facility]. SS notified pt that [facility] is currently on an admission hold due to COVID19. Pt requested to go to the [facility] due to her residing there. Pt discussed with Bing from the [facility] on the phone and was notified that they are not a short term usp unit and can only do retirement placements. Pt reported understanding. SS provided pt with other options for usp unit. Pt reported that if she cannot go to [facility] or the [facility] for rehab then she will return to home with [facility], ; fax [phone]. Pt's RN notified. SS will continue to follow for discharge planning.
--- NOTE | 2020-12-11 10:34 | PDOC ---
[facility] PROGRESS NOTE Date of Service DOS: DATE: 12/11/20 TIME: 10:31 Chief Complaint Chief Complaint Syncope SDH Facial Trauma History of Present Illness History of Present Illness 12/10/2020 Patient seen and examined Rosalio RN Chart reviewed 12/11 -Patient seen and examined. -Had surgery done on left humerus yesterday. -Loop recorder in place. -Rosalio RN. Rosalio senior case manager. -Chart reviewed. Vitals/I&O Vitals/I&O: Vital Signs Date Time Temp Pulse Resp B/P (MAP) Pulse Ox O2 Delivery O2 Flow Rate FiO2 12/11/20 09:20 99 Room Air 12/11/20 07:15 16 12/11/20 07:00 98.7 75 104/63 (77) 98.7 12/10/20 17:55 8.0 I & O 12/10/20 12/10/20 12/11/20 15:00 23:00 07:00 Intake Total 650 ml 120 ml Output Total 2300 ml 1150 ml 350 ml Balance -2300 ml -500 ml -230 ml Physical Exam Physical Exam: HEENT, bruising on the left side of the face, teeth are chipped and loose General: Alert, Oriented X3, Cooperative, No acute distress Heart: Regular rate Lungs: Clear Abdomen: Soft, No tenderness Extremities: No clubbing, No cyanosis, Other (LUE swelling) Skin: No rashes, No breakdown Review of Systems Review of Systems: Denies chest pain. Denies fever. Assessment and Plan Assessmemt and Plan Problems Medical Problems: (1) Closed left humeral fracture Status: Acute (2) Head contusion Status: Acute (3) Subdural hematoma Status: Acute (4) Syncope Status: Acute (5) Tooth fracture Status: Acute Syncope SDH Facial Trauma Plan 1 Continue cardiac monitoring 2 Wound care 3 PT/OT 4 Home meds 5 Full code 6 DVT prophylaxis 7 Probable D/C to SNU in few days Comment Review of Relevant I have reviewed the following items dawson (where applicable) has been applied. Medications: Current Medications Medications (Trade) Dose Ordered Sig/Get Route PRN Reason Start Time Stop Time Status Last Admin Dose Admin Vancomycin HCl (Vancomycin) 1 gm STK-MED ONCE .ROUTE 12/10/20 16:02 12/10/20 16:02 DC 12/10/20 16:14 Bupivacaine HCl (Sensorcaine Mpf 0.5%) 30 ml STK-MED ONCE .ROUTE 12/10/20 16:10 12/10/20 16:10 DC 12/10/20 14:45 Multivitamins (Thera M Plus) 1 tab DAILY PO 12/11/20 09:00 12/11/20 07:55 Senna/Docusate Sodium (Senna Plus) 1 tab DAILY PO 12/11/20 09:00 12/11/20 07:55 Vitamin D (Vitamin D3) 1,000 unit DAILY PO 12/11/20 09:00 12/11/20 07:55 Cefazolin Sodium/ Dextrose 50 ml @ 100 mls/hr Q6H IV 12/10/20 20:00 12/11/20 08:29 DC 12/11/20 07:56 Oxycodone/ Acetaminophen (Percocet 5/325) 1 tab PRN Q4HRS PRN PO MODERATE PAIN 2ND CHOICE 12/10/20 16:45 12/11/20 06:15 Fentanyl Citrate (Fentanyl 2ml Vial) 50 mcg PRN Q5MIN PRN IV MODERATE TO SEVERE PAIN 12/10/20 17:15 12/11/20 17:14 12/10/20 17:25 Lidocaine/ Epinephrine (LIDOCAINE 2%-EPI 1:100,000 multi-dose) 20 ml 1X ONCE INJ 12/11/20 08:30 12/11/20 08:33 DC 12/11/20 08:36 Justifications for Admission Other Justification Subarachnoid hemorrhage CAM CAMACHO III DO Dec 11, 2020 10:34
--- NOTE | 2020-12-11 12:25 | CARD ---
MR#: [id number] Date of Study: 12/11/2020 Ordering Physician: ELMIRA PATEL, Referring Physician: ELMIRA PATEL, Tech: APPROVED REPORT EXAM Loop Recorder HISTORY The Patient is a 85 year-old female with a history of syncope INDICATIONS Syncope of unclear etiology IMPLANTED DEVICES Reveal Linq monitor - Serial number [id number] After appropriate informed consent the left chest was prepped and draped in usual sterile fashion. 1 0 mL of 1% lidocaine was instilled in the left pectoral area. A 0.5 incision was made and a subcutan eous tunnel was created through which a Medtronic implantable loop recorder was placed. The incision was closed with Steri-Strips. No acute complications were noted. CONCLUSION 1. Successful plantation of a Medtronic loop recorder for syncope with trauma of unclear etiology. Signed by : Elmira Patel, Electronically Approved : 12/11/2020 12:24:56
[2020-12-11] MEDS ORDERED: BISACODYL 10 MG SUPP.RECT. PR PRN (16:00)
[2020-12-11] MEDS: HYDROcodone/APAP 5/325MG 1 TAB TABLET PO PRN ×2 (16:13→20:07)
[2020-12-11 16:29] LABS: HEMATOCRIT 33.8 % (36.0-47.0); HEMOGLOBIN 11.4 g/dL (12.0-15.5)
[2020-12-11] MEDS: ALPRAZolam 0.5 MG TABLET PO PRN (20:06)
[2020-12-11] MEDS: ATORVASTATIN CALCIUM 20 MG TABLET PO SCH (20:07)
[2020-12-12 03:54] VITALS: BP 107/39
[2020-12-12] MEDS: IV 1/2 NORMAL SALINE 1,000 ML IV SCH ×2 (06:59→20:45)
[2020-12-12 07:00] VITALS: BP 151/58
[2020-12-12] MEDS: LEVOTHYROXINE 112 MCG TABLET PO SCH (07:05)
[2020-12-12] MEDS: MULTIVITAMIN with MINERAL TABLET. PO SCH (07:52)
[2020-12-12] MEDS: ACETAMINOPHEN 500 MG TABLET PO SCH ×3 (07:52→21:45)
[2020-12-12] MEDS: CHOLECALCIFEROL (VITAMIN D3) 1,000 UNIT TABLET PO SCH (07:52)
[2020-12-12] MEDS: PANTOPRAZOLE 40 MG TABLET.DR. PO SCH (07:52)
[2020-12-12] MEDS: DOCUSATE SODIUM 100 MG CAPSULE. PO SCH ×2 (07:52→20:44)
[2020-12-12] MEDS: SENNOSIDES/DOCUSATE 8.6/50MG TABLET. PO SCH (07:52)
[2020-12-12] MEDS: POTASSIUM CHLORIDE 10 MEQ TABLET.ER. PO SCH (07:52)
[2020-12-12] MEDS: TRIAMTERENE/HCTZ 37.5/25MG TABLET. PO SCH (07:53)
[2020-12-12] MEDS: oxyCODONE/APAP 5/325 1 TAB TABLET PO PRN ×2 (07:53→17:38)
--- NOTE | 2020-12-12 08:27 | PDOC ---
[facility] PROGRESS NOTE Date of Service DOS: DATE: 12/12/20 TIME: 08:24 Chief Complaint Chief Complaint Syncope SDH Facial Trauma History of Present Illness History of Present Illness 12/10/2020 Patient seen and examined Rosalio RN Chart reviewed 12/11 -Patient seen and examined. -Had surgery done on left humerus yesterday. -Loop recorder in place. -Rosalio RN. Rosalio director of casework. -Chart reviewed. 12/12: -Patient seen and examined -Left arm clean and dry with intact dressing -Bruising improving -Rosalio RN -Chart reviewed Vitals/I&O Vitals/I&O: Vital Signs Date Time Temp Pulse Resp B/P (MAP) Pulse Ox O2 Delivery O2 Flow Rate FiO2 12/12/20 07:53 96 Room Air 12/12/20 03:54 66 14 107/39 (61) 12/11/20 23:17 98.0 98.0 l I & O 12/11/20 12/11/20 12/12/20 15:00 23:00 07:00 Intake Total 480 ml 200 ml Output Total 600 ml 550 ml Balance 480 ml -600 ml -350 ml Physical Exam Physical Exam: HEENT, bruising on the left side of the face, teeth are chipped and loose General: Alert, Oriented X3, Cooperative, No acute distress Heart: Regular rate Lungs: Clear Abdomen: Soft, No tenderness Extremities: No clubbing, No cyanosis, Other (LUE swelling) Skin: No rashes, No breakdown Labs Labs: Laboratory Tests Test 12/11/20 16:20 Hemoglobin 11.4 g/dL (12.0-15.5) Hematocrit 33.8 % (36.0-47.0) Mean Corpuscular Hemoglobin Concent 34 g/dL (31-37) Review of Systems Review of Systems: Denies constipation. Denies fever. Assessment and Plan Assessmemt and Plan Problems Medical Problems: (1) Closed left humeral fracture Status: Acute (2) Head contusion Status: Acute (3) Subdural hematoma Status: Acute (4) Syncope Status: Acute (5) Tooth fracture Status: Acute Syncope SDH Facial Trauma Plan 1. Wound care 2. DVT prophylaxis 3. Full code 4. Cardiac monitoring 5. Await oral surgeon input 6. Probable correction unit in 1-2 days Comment Review of Relevant I have reviewed the following items dawson (where applicable) has been applied. Medications: Current Medications Medications (Trade) Dose Ordered Sig/Get Route PRN Reason Start Time Stop Time Status Last Admin Dose Admin Multivitamins (Thera M Plus) 1 tab DAILY PO 12/11/20 09:00 12/12/20 07:52 Senna/Docusate Sodium (Senna Plus) 1 tab DAILY PO 12/11/20 09:00 12/12/20 07:52 Vitamin D (Vitamin D3) 1,000 unit DAILY PO 12/11/20 09:00 12/12/20 07:52 Lidocaine/ Epinephrine (LIDOCAINE 2%-EPI 1:100,000 multi-dose) 20 ml 1X ONCE INJ 12/11/20 08:30 12/11/20 08:33 DC 12/11/20 08:36 Justifications for Admission Other Justification Subarachnoid hemorrhage CAM CAMACHO III DO Dec 12, 2020 08:27
[2020-12-12 11:00] VITALS: BP 120/51
--- NOTE | 2020-12-12 11:41 | PDOC ---
EDDIE DUCKWORTH LANDSCAPE ARCHITECT AND PLANNER 12/12/20 1141: CARDIO Progress Notes Date and Time Date of Service 12/12/20 Time of Evaluation 1130 Subjective Subjective: No Chest Pain, No shortness of breath, Other (left arm pain ) Vitals Vitals Vital Signs Date Time Temp Pulse Resp B/P (MAP) Pulse Ox O2 Delivery O2 Flow Rate FiO2 12/12/20 11:00 98.9 86 16 120/51 (74) 98 Room Air 98.9 Weight Weight [ ] Input and Output Intake and Output Intake and Output 12/12/20 07:00 Intake Total 680 ml Output Total 1150 ml Balance -470 ml Intake Oral 680 ml Output Urine Total 1150 ml Laboratory Labs Laboratory Tests Test 12/11/20 16:20 Hemoglobin 11.4 g/dL (12.0-15.5) Hematocrit 33.8 % (36.0-47.0) Mean Corpuscular Hemoglobin Concent 34 g/dL (31-37) Microbiology Micro Microbiology 12/08/20 Blood Culture - Preliminary, Resulted NO GROWTH AFTER 3 DAYS Physical Exam HEENT: Other (diffuse facial ecchymosis) Chest: Symmetric LUNGS: Clear to Auscultation Heart: RRR Abdomen: Soft N/T Extremities: Other (LUE edema ) Neurology: alert, oriented, follow commands Assessment Assessment 1. Syncope; etiology unclear. Echo with preserved LV systolic funcion. No acute events on tele. S/p ILR for long-term rhythm monitoring 2. Traumatic fall with distal left humerus fracture and small acute SDH. s/p open surgical repair. POD #2 3. Hypertension; controlled 4. Hyperlipidemia; statin 5. Hypothyroidism Recommendations Okay to discharge from a CV standpoint Follow up in our office with Dr. Alexis as scheduled. Consider outpatient ischemic evaluation Justicifation of Admission Dx: Justifications for Admission: Justification of Admission Dx: Yes ELMIRA ALEXIS MD 12/13/20 0732: CARDIO Progress Notes Plan Plan Late entry for 12/12/20 Pt. seen and examined. Agree with above HEALTHCARE REPRESENTATIVE note. Supportive care. EDDIE DUCKWORTH RIANNA Dec 12, 2020 11:41 ELMIRA ALEXIS MD Dec 13, 2020 07:32
--- NOTE | 2020-12-12 12:14 | NUR ---
IP: Pt is 6 weeks out from original COVID dx, therefore does not need isolation.
--- NOTE | 2020-12-12 13:32 | NUR ---
SS following up with discharge planning. SS reviewed pt chart and discussed with pt RN. Pt is currently on room air. COVID19 negative. PT/OT recommended residential unit. Pt declining residential unit at this time. Pt requesting to return to home with [facility], ; fax [phone]. Pt unsafe to discharge to home. High risk readmission if returns to home. Per RN, pt is two person assist with transfers. Pt lives at home alone. Pt's spouse in memory care unit at the [facility]. Pt reported that she only has sabianist friends to assist her at home. Pt continuing to request home with [facility]. Adult Protective Services report made due to unsafe discharge plan. Intake#[id number]. SS will continue to follow for discharge planning.
[2020-12-12 15:00] VITALS: BP 120/53
[2020-12-12 19:19] VITALS: BP 131/87
[2020-12-12] MEDS: ATORVASTATIN CALCIUM 20 MG TABLET PO SCH (21:46)
[2020-12-12] MEDS: ALPRAZolam 0.5 MG TABLET PO PRN (21:46)
[2020-12-12] MEDS: HYDROcodone/APAP 10/325 1 TAB TABLET PO PRN (21:46)
[2020-12-12 23:15] VITALS: BP 133/42
[2020-12-13 02:04] VITALS: BP 115/48
[2020-12-13] MEDS: LEVOTHYROXINE 112 MCG TABLET PO SCH (06:22)
[2020-12-13] MEDS: HYDROcodone/APAP 10/325 1 TAB TABLET PO PRN (06:22)
[2020-12-13 07:00] VITALS: BP 183/75
[2020-12-13] MEDS: POTASSIUM CHLORIDE 10 MEQ TABLET.ER. PO SCH (08:38)
[2020-12-13] MEDS: MULTIVITAMIN with MINERAL TABLET. PO SCH (08:38)
[2020-12-13] MEDS: PANTOPRAZOLE 40 MG TABLET.DR. PO SCH (08:39)
[2020-12-13] MEDS: SENNOSIDES/DOCUSATE 8.6/50MG TABLET. PO SCH (08:39)
[2020-12-13] MEDS: TRIAMTERENE/HCTZ 37.5/25MG TABLET. PO SCH (08:39)
[2020-12-13] MEDS: CHOLECALCIFEROL (VITAMIN D3) 1,000 UNIT TABLET PO SCH (08:39)
[2020-12-13] MEDS: oxyCODONE/APAP 5/325 1 TAB TABLET PO PRN ×2 (08:39→21:14)
[2020-12-13] MEDS: DOCUSATE SODIUM 100 MG CAPSULE. PO SCH ×2 (08:39→21:00)
[2020-12-13] MEDS: ACETAMINOPHEN 500 MG TABLET PO SCH ×3 (08:43→21:00)
--- NOTE | 2020-12-13 10:47 | PDOC ---
[facility] [facility] PROGRESS NOTE Date of Service DOS: DATE: 12/13/20 TIME: 10:44 Chief Complaint Chief Complaint Syncope SDH Facial Trauma History of Present Illness History of Present Illness 12/10/2020 Patient seen and examined Rosalio RN Chart reviewed 12/11 -Patient seen and examined. -Had surgery done on left humerus yesterday. -Loop recorder in place. -Rosalio RN. Rosalio case packer. -Chart reviewed. 12/12: -Patient seen and examined -Left arm clean and dry with intact dressing -Bruising improving -Rosalio RN -Chart reviewed 12/13: -Chart reviewed -Patient seen and examined -Left arm clean and dry with intact dressing -Bruising improving -Rosalio RN - discussed placement in MAR or SNF with pt Vitals/I&O Vitals/I&O: Vital Signs Date Time Temp Pulse Resp B/P (MAP) Pulse Ox O2 Delivery O2 Flow Rate FiO2 12/13/20 09:39 18 Room Air 12/13/20 07:22 95 12/13/20 07:00 97.9 85 183/75 (111) 97.9 I & O 12/12/20 12/12/20 12/13/20 15:00 23:00 07:00 Intake Total 180 ml 300 ml Output Total 1250 ml 350 ml 600 ml Balance -1250 ml -170 ml -300 ml Physical Exam Physical Exam: HEENT, bruising on the left side of the face, teeth are chipped and loose General: Alert, Oriented X3, Cooperative, No acute distress Heart: Regular rate Lungs: Clear Abdomen: Soft, No tenderness Extremities: No clubbing, No cyanosis, Other (LUE swelling) Skin: No rashes, No breakdown Review of Systems Review of Systems: pt denies abdominal pain and change in mentation Assessment and Plan Assessmemt and Plan Problems Medical Problems: (1) Closed left humeral fracture Status: Acute (2) Head contusion Status: Acute (3) Subdural hematoma Status: Acute (4) Syncope Status: Acute (5) Tooth fracture Status: Acute 12/13/2020 Plan: 1. probable d/c to MAR in am 2. RN to place stallings catheter Comment Review of Relevant I have reviewed the following items dawson (where applicable) has been applied. Justifications for Admission Other Justification Subarachnoid hemorrhage CAM CAMACHO III DO Dec 13, 2020 10:47
[2020-12-13 11:00] VITALS: BP 143/70
[2020-12-13] MEDS: IV 1/2 NORMAL SALINE 1,000 ML IV SCH (11:25)
--- NOTE | 2020-12-13 11:57 | NUR ---
SS following up with discharge planning. SS reviewed pt chart and discussed with pt RN. Pt is currently on room air. COVID19 negative. Dr. Nichols, PT, and Adult Protective Services met with pt in room today to discuss safe discharge planning. Pt now agreeable to inpatient rehabilitation and is requesting referral to [facility], ; fax [phone]. SS phoned and faxed referral as requested. SS will continue to follow for discharge planning.
[2020-12-13 15:00] VITALS: BP 140/62
[2020-12-13 19:55] VITALS: BP 133/57
[2020-12-13] MEDS: ATORVASTATIN CALCIUM 20 MG TABLET PO SCH (21:14)
[2020-12-13 22:16] VITALS: BP 129/59
[2020-12-13] MEDS: ALPRAZolam 0.5 MG TABLET PO PRN (23:00)
[2020-12-14] MEDS: IV 1/2 NORMAL SALINE 1,000 ML IV SCH (00:45)
[2020-12-14 02:22] VITALS: BP 115/65
[2020-12-14] MEDS: LEVOTHYROXINE 112 MCG TABLET PO SCH (05:58)
[2020-12-14 07:00] VITALS: BP 143/55
[2020-12-14] MEDS: MULTIVITAMIN with MINERAL TABLET. PO SCH (08:31)
[2020-12-14] MEDS: DOCUSATE SODIUM 100 MG CAPSULE. PO SCH (08:31)
[2020-12-14] MEDS: CHOLECALCIFEROL (VITAMIN D3) 1,000 UNIT TABLET PO SCH (08:31)
[2020-12-14] MEDS: SENNOSIDES/DOCUSATE 8.6/50MG TABLET. PO SCH (08:31)
[2020-12-14] MEDS: TRIAMTERENE/HCTZ 37.5/25MG TABLET. PO SCH (08:31)
[2020-12-14] MEDS: ALPRAZolam 0.5 MG TABLET PO PRN (08:31)
[2020-12-14] MEDS: PANTOPRAZOLE 40 MG TABLET.DR. PO SCH (08:31)
[2020-12-14] MEDS: HYDROcodone/APAP 10/325 1 TAB TABLET PO PRN (08:32)
[2020-12-14] MEDS: ACETAMINOPHEN 500 MG TABLET PO SCH (08:32)
[2020-12-14] MEDS: POTASSIUM CHLORIDE 10 MEQ TABLET.ER. PO SCH (08:32)
--- NOTE | 2020-12-14 09:17 | SNU/HH DC ---
DISCHARGE ORDERS DISCHARGE INFORMATION: FINAL DIAGNOSIS Problems Medical Problems: (1) Closed left humeral fracture Status: Acute (2) Head contusion Status: Acute (3) Subdural hematoma Status: Acute (4) Syncope Status: Acute (5) Tooth fracture Status: Acute CONDITION ON DISCHARGE: Stable CODE STATUS: Code Status: Full RETIREMENT: SNF STAY <30 DAYS: No HOSPICE: HOSPICE: No HOSPICE EVAL & TREAT: No LTAC: ADMIT TO LTAC: Yes POST DISCHARGE ORDERS: ACTIVITY ORDERS: No restrictions, Activity as tolerated WEIGHT BEARING STATUS: No restrictions, As tolerated BATHING ORDERS: Shower-keep dressing dry DIET AFTER DISCHARGE: Cardiac WOUND/INCISION CARE: Ice to area for comfort, Do not change dressing TREATMENT/EQUIPMENT ORDERS: ADAPTIVE EQUIPMENT NEEDED: Front wheeled walker Physical Therapy For: Evalulation/Treatment Occupational Therapy For: Evaluation/Treatment Speech Language Pathology For: Evaluation/Treatment DISCHARGE MEDICATIONS: Home Meds Active Scripts Hydrocodone/Apap 5-325 (NORCO 5-325 TABLET) 1 Each Tablet, 1 TAB PO PRN Q6HRS PRN for PAIN, #14 TAB 0 Refills Prov:MARNIE GALICIA MD 06/13/19 Docusate Sodium (COLACE) 100 Mg Capsule, 100 MG PO BID, #10 TAB-CAP Prov:HO ELAINE MD 11/28/16 Reported Medications Acetaminophen (ACETAMINOPHEN) 500 Mg Tablet, 1 TAB PO TID for pain, #60 TAB 1 Refill 10/07/18 Levothyroxine Sodium (LEVOTHYROXINE SODIUM) 112 Mcg Tablet, 1 TAB PO DAILY, #30 TAB 5 Refills 05/05/17 Omeprazole (OMEPRAZOLE) 20 Mg Capsule.dr, 1 CAP PO DAILY, #30 CAP 5 Refills 05/05/17 Hydrocodone Bit/Acetaminophen (HYDROCODONE-APAP 10-325 ) 1 Each Tablet, 5 MG PO TID PRN for PAIN, TAB 0 Refills 05/05/17 Potassium Chloride (POTASSIUM CHLORIDE ) 10 Meq Capsule.er, 10 MEQ PO DAILY, TAB.SR 05/05/17 Estropipate (ESTROPIPATE) 1.5 Mg Tablet, 1.25 MG PO DAILY 08/22/14 Atorvastatin Calcium (LIPITOR) 20 Mg Tablet, 1 TAB PO DAILY, #90 TAB 1 Refill 08/22/14 Triamterene/Hydrochlorothiazid (TRIAMTERENE-HCTZ 37.5-25 MG TB) 1 Each Tablet, 1 TAB PO DAILY, #30 TAB 5 Refills 08/22/14 Aspirin (ASPIR 81) 81 Mg Tablet., 1 TAB PO DAILY, #30 TAB 5 Refills 08/22/14 CAM CAMACHO III DO Dec 14, 2020 09:17
--- NOTE | 2020-12-14 10:17 | PDOC ---
[facility] [facility] PROGRESS NOTE Date of Service DOS: DATE: 12/14/20 TIME: 10:15 Chief Complaint Chief Complaint Syncope SDH Facial Trauma History of Present Illness History of Present Illness 12/10/2020 Patient seen and examined Rosalio RN Chart reviewed 12/11 -Patient seen and examined. -Had surgery done on left humerus yesterday. -Loop recorder in place. -Rosalio RN. Rosalio case work aide. -Chart reviewed. 12/12: -Patient seen and examined -Left arm clean and dry with intact dressing -Bruising improving -Rosalio RN -Chart reviewed 12/13: -Chart reviewed -Patient seen and examined -Left arm clean and dry with intact dressing -Bruising improving -Rosalio RN - discussed placement in [facility] or SNF with pt 12/14: - pt at baseline -Chart reviewed -Patient seen and examined -Left arm clean and dry with intact dressing -Rosalio RN - discussed approved placement for [facility] Vitals/I&O Vitals/I&O: Vital Signs Date Time Temp Pulse Resp B/P (MAP) Pulse Ox O2 Delivery O2 Flow Rate FiO2 12/14/20 09:32 96 Room Air 8.0 12/14/20 07:00 98.9 90 18 143/55 (84) 98.9 I & O 12/13/20 12/13/20 12/14/20 15:00 23:00 07:00 Intake Total 250 ml 500 ml Output Total 1000 ml 850 ml 1650 ml Balance -1000 ml -600 ml -1150 ml Physical Exam Physical Exam: HEENT, bruising on the left side of the face, teeth are chipped and loose General: Alert, Oriented X3, Cooperative, No acute distress Heart: Regular rate Lungs: Clear Abdomen: Soft, No tenderness Extremities: No clubbing, No cyanosis, Other (LUE swelling) Skin: No rashes, No breakdown Review of Systems Review of Systems: pt denies n/v pt denies change in vision or headaches Assessment and Plan Assessmemt and Plan Problems Medical Problems: (1) Closed left humeral fracture Status: Acute (2) Head contusion Status: Acute (3) Subdural hematoma Status: Acute (4) Syncope Status: Acute (5) Tooth fracture Status: Acute Assessment -Syncope -SDH -Facial Trauma Plan - d/c to [facility] in morning Comment Review of Relevant I have reviewed the following items dawson (where applicable) has been applied. Justifications for Admission Other Justification Subarachnoid hemorrhage CAM CAMACHO III DO Dec 14, 2020 10:17
--- NOTE | 2020-12-14 10:34 | NUR ---
SS following up with discharge planning. SS reviewed pt chart and discussed with pt RN. Pt is currently on room air. COVID19 negative. Pt accepted at [facility], ; fax [phone]. Discharge orders received and phoned and faxed to [facility]. Pt will discharge today and go to [facility] between 1230 and 1300. [facility] to provide transportation. Pt and pt's RN notified.
[2020-12-14 11:00] VITALS: BP 118/71
--- NOTE | 2020-12-14 11:23 | NUR ---
called [facility] [phone] at approx 1120 and was told the nurse Rosa Maria was unavailable and would have to call me back.
--- NOTE | 2020-12-27 14:21 | DS ---
DATE OF DISCHARGE: 12/14/2020 ADMISSION DIAGNOSES: Fall with humerus fracture, facial trauma and subdural hematoma. DISCHARGE DIAGNOSES: Postoperative open reduction and internal fixation of the left humeral shaft fracture with plate and screws, resolving facial trauma, resolving subdural hematoma, history of hypertension, hyperlipidemia, low back pain, osteoarthritis, hypothyroidism, cholecystectomy, hip replacement, hysterectomy. HOSPITAL COURSE: The patient is a pleasant elderly female who basically fell and suffered a humeral fracture and facial trauma. She was admitted. She had a subdural hematoma. We did consult Orthopedics and Cardiology. She went for surgery. She also had an implantable loop recorder that we analyzed and basically over the next few days, she returned to her baseline. We want to go to group home, but she really did not want to go there. We were able to get her to approved at [facility]. DISPOSITION: [facility]. ACTIVITY: As tolerated. DIET: Low sodium. MEDICATIONS: Please see the MRAD. TOTAL TIME: 27 minutes. CAM CAMACHO DO DR: KATY/lorrie JOB#: [id number] / [id number]
== END 2020-12-14 14:00 | DRG 492 ==
LOC: ER 17:04 → 1 WEST ICU 19:18 → 2 SOUTH 12-09 11:24
PROVIDERS: ADMIT Internal Medicine; ATTEND Internal Medicine
PROC: 0PSG04Z Reposition Left Humeral Shaft with Internal Fixation Device, Open Approach (ICD-10-PCS; principal; 2020-12-10 14:30)
PROC: 0JH632Z Insertion of Monitoring Device into Chest Subcutaneous Tissue and Fascia, Percutaneous Approach (ICD-10-PCS; 2020-12-11)
DX: S42.342A Displaced spiral fracture of shaft of humerus, left arm, initial encounter for closed fracture (principal); S06.5X9A Traumatic subdural hemorrhage with loss of consciousness of unspecified duration, initial encounter; N13.30 Unspecified hydronephrosis; S02.5XXA Fracture of tooth (traumatic), initial encounter for closed fracture; S42.412A Displaced simple supracondylar fracture without intercondylar fracture of left humerus, initial encounter for closed fracture; E03.9 Hypothyroidism, unspecified; E78.00 Pure hypercholesterolemia, unspecified; E78.5 Hyperlipidemia, unspecified; E86.0 Dehydration; I10 Essential (primary) hypertension; I16.0 Hypertensive urgency; Z83.3 Family history of diabetes mellitus; Z90.710 Acquired absence of both cervix and uterus; Z96.619 Presence of unspecified artificial shoulder joint; Z96.643 Presence of artificial hip joint, bilateral; M19.90 Unspecified osteoarthritis, unspecified site; W18.39XA Other fall on same level, initial encounter; Y93.89 Activity, other specified; Y92.89 Other specified places as the place of occurrence of the external cause; Y99.8 Other external cause status; Z88.8 Allergy status to other drugs, medicaments and biological substances; Z20.822 Contact with and (suspected) exposure to COVID-19
CPT/HCPCS: 33285; 36415; 51702; 70450; 70486; 71045; 72125; 72170; 73070; 73080; 74176; 76000; 80048; 80053; 81001; 82140; 82553; 82962; 83605; 83735; 83880; 84443; 84484; 85014; 85018; 85025; 85610; 85730; 86850; 86900; 86901; 87040; 87426; 90471; 90715; 93005; 93308; 96361; 96365; 96375; 99291; A4314; A4565; C1713; C1764; G0390; J0690; J1100; J1170; J2060; J2405; J2543; J2704; J3010; J3370; J3490; J7030; J7040; U0003; 97110-GP; 97116-GP; 97530-GO; 97530-GP; 97535-GO; G0378